=== PATIENT | male | born 1955 | race Caucasian/White ===

== ENCOUNTER 2016-11-06 17:11 | Emergency (ER) | payer OTHER ==
[2016-11-06] MEDS ORDERED: MORPHINE 4 MG/ML 1ML SYRINGE As Ordered ONE (18:24)
[2016-11-06 18:31] LABS: BASO # 0.2 K/mm3 (0.0-0.2); BASO % 1.8 % (0.0-1.0); EOS # 0.1 K/mm3 (0.0-0.50); EOS % 1.1 % (0.0-3.0); LARGE UNSTAINED CELL # 0.3 K/mm3 (0.0-0.4); LARGE UNSTAINED CELL % 2.2 % (0.0-4.0); LYMPH % 22.9 % (24.0-44.0); MEAN CORPUSCULAR HEMOGLOBIN 29.4 pg (27.0-33.0); MEAN CORPUSCULAR VOLUME 83.8 fl (80.0-96.0); MONO # 0.8 K/mm3 (0.0-0.8); MONO % 6.4 % (0.0-5.0); NEUTROPHILS # 7.8 K/mm3 (1.8-7.7); NEUTROPHILS % 65.6 % (36.0-66.0); PLATELET COUNT, AUTOMATED 322 k/mm3 (150-450); RED CELL DISTRIBUTION WIDTH 13.2 % (11.5-14.5); WHITE BLOOD COUNT 11.9 K/mm3 (4.0-10.0)
[2016-11-06 18:39] LABS: ALBUMIN 3.7 GM/DL (3.2-5.2); ALBUMIN/GLOBULIN RATIO 0.88 (1.00-1.93); ALKALINE PHOSPHATASE 141 U/L (45-117); ALT/SGPT 28 U/L (12-78); AMYLASE 59 U/L (25-115); ANION GAP 12 MEQ/L (8-16); AST/SGOT 33 U/L (15-37); BILIRUBIN,DIRECT 0.3 MG/DL (0.0-0.2); BILIRUBIN,TOTAL 0.8 MG/DL (0.2-1.0); BLOOD UREA NITROGEN 18 MG/DL (7-18); CALCIUM LEVEL 8.9 MG/DL (8.8-10.2); CARBON DIOXIDE LEVEL 22 MEQ/L (21-32); CHLORIDE LEVEL 106 MEQ/L (98-107); CREATININE FOR GFR 1.22 MG/DL (0.70-1.30); GLOMERULAR FILTRATION RATE > 60.0 (>49); GLUCOSE, FASTING 137 MG/DL (80-110); POTASSIUM SERUM 3.9 MEQ/L (3.5-5.1); SODIUM LEVEL 140 MEQ/L (136-145); TOTAL PROTEIN 7.9 GM/DL (6.4-8.2)
[2016-11-06] MEDS ORDERED: ISOVUE-370 76% 100ML VIAL (Q9967) As Ordered ONE (18:57)
--- NOTE | 2016-11-06 19:43 | REP ---
Clinical: Epigastric pain. Technique: Axial contrast enhanced images from the lung bases to the pubic symphysis using 100 ml Isovue 370 intravenous contrast material with coronal and sagittal re-formations. Comparison: 12/19/2009 Findings: The lung bases are clear. The distal esophagus is fluid-filled and narrowing at the gastroesophageal junction cannot be excluded. Visualized portions of the heart and pericardium are normal. Liver, spleen, pancreas, bilateral adrenal glands are normal. Cholelithiasis noted without CT evidence for acute cholecystitis. Kidneys demonstrate bilateral simple cysts measuring 2.1 cm in the right kidney and 1.9 cm in left kidney. Evaluation of the enteric system is without obstruction and a normal terminal ileum and appendix are identified in the right lower quadrant. There is mural thickening and pericolonic stranding involving the distal sigmoid colon with scattered diverticula most compatible with acute diverticulitis and correlation is required (Images 115 - 125). Pelvis demonstrates relatively normal bladder. The prostate gland is prominent and may warrant physical examination. Few scattered pelvic lymph nodes are nonspecific and possibly related to the presumed sigmoid diverticulitis. No pelvic fluid or ascites. No drainable collection. No free air. Atherosclerotic changes of the aorta noted without aneurysm or dissection. Musculoskeletal structures demonstrate age-related changes without focal osseous abnormality. Impression: 1. Fluid-filled distal esophagus with possible narrowing at the gastroesophageal junction cannot be excluded. 2. Mural thickening and pericolonic inflammatory stranding involving the distal sigmoid colon suggesting acute diverticulitis and correlation is recommended. Small adjacent lymph nodes are likely reactive. Outpatient colonoscopy may be warranted to exclude the possibility of neoplasm. 3. Simple appearing bilateral renal cysts. 4. Cholelithiasis without CT evidence for acute cholecystitis. Signed by Romeo Wiggins MD 11/06/2016 07:34 P
--- NOTE | 2016-11-06 21:12 | EDDOCDS ---
Physician Documentation [facility] Name: Phillip Molina Age: 61 yrs Sex: Male : 1955 Arrival Date: 11/06/2016 Time: 17:11 Bed 5 Private MD: Nicky Berry Disposition: 11/06/16 20:56 Discharged to Home/Self Care. Impression: Other cholelithiasis without obstruction, Diverticulitis of large intestine without perforation or abscess without bleeding. - Condition is Stable. - Prescriptions for Cipro 500 mg Oral Tablet - take 1 tablet by ORAL route every 12 hours; 14 tablet. Flagyl 500 mg Oral Tablet - take 1 tablet by ORAL route every 6 hours for 10 days; 40 tablet. - Medication Reconciliation, Local Pharmacy Hours form. - Follow up: Scott Wynn; When: As previously arranged. - Problem is an ongoing problem. - Symptoms have improved. Historical: - Allergies: No known drug Allergies; - Home Meds: 1. Altace 10 mg Oral cap 2 caps once daily 2. Fish Oil Oral 3. omeprazole 40 mg Oral cpDR 1 cap once daily - PMHx: Diverticulitis; GERD; - PSHx: spleen repair; - Social history: Smoking status: Patient states was never smoker of tobacco. No barriers to communication noted, The patient speaks fluent Luxembourgish, Speaks appropriately for age. - Family history: Not pertinent. - : The pt / caregiver states he / she is not on anticoagulants. Home medication list is obtained from the patient. - Exposure Risk Screening:: None identified. Vital Signs: 11/06 17:13 BP 183 / 89; Pulse 66; Resp 22 S; Temp 97.4; Pulse Ox 100% on R/A; Weight 99.79 kg / dd6 220 lbs (R); Height 6 ft. 0 in. (182.88 cm) (R); Pain 10/10; 18:32 BP 160 / 95 (auto/); nn1 18:32 Pulse 74 MON; Pulse Ox 96% ; nn1 18:32 Resp 18; nn1 18:47 BP 161 / 95 (auto/); nn1 18:47 Pulse 70 MON; Pulse Ox 97% ; nn1 19:02 BP 143 / 73 (auto/); nn1 19:02 Pulse 68 MON; Pulse Ox 97% ; nn1 21:01 BP 154 / 89; Pulse 64; Resp 18; Pulse Ox 97% on R/A; nn1 21:08 Temp 98.1; Pain 4/10; nn1 17:13 Body Mass Index 29.84 (99.79 kg, 182.88 cm) dd6 MDM: 18:05 ECG WITH READING ER PHYS+CARDIAG ordered. EDMS 18:18 morphine 4 mg IVP every 15 minutes; Document pain score/vitals after each dose (Hold if jo4 SBP < 90mmHg) x2 ordered. 18:20 CBC with Diff Ordered. EDMS 18:20 BMP Ordered. EDMS 18:20 Liver Profile Ordered. EDMS 18:20 Amylase Ordered. EDMS 18:20 Lipase Ordered. EDMS 18:22 IV Saline Lock ordered. jo4 18:22 Bench Worker Helper ordered. jo4 18:23 Troponin Ordered. EDMS 18:24 Financial registration complete. gjb 18:25 [facility] Payment Agreement was scanned into [employer] and attached to record. gjb 18:36 CBC with Diff Reviewed. jo4 18:45 Troponin Reviewed. jo4 18:48 BMP Reviewed. sd1 18:48 Liver Profile Reviewed. sd1 18:48 Amylase Reviewed. sd1 18:48 Lipase Reviewed. sd1 18:51 CT ABD & PELVIS: IV Contrast Only Ordered. EDMS Administered Medications: 21:11 Not Given (Patient Refused): morphine 4 mg IVP every 15 minutes; Document pain nn1 score/vitals after each dose (Hold if SBP < 90mmHg) x2 Signatures: Dispatcher [employer] EDFL Kayleen Oviedo MD MD sd1 Gelacio Greene RN RN dy Quay, Paulina, RN RN pml Schiff, Craig, DO DO cs11 Elisabeth Unger RN RN nn1 Jessica Crain Geovanna San DO DO jo4 The chart was reviewed and I authenticate all verbal orders and agree with the evaluation and treatment provided.Attachments: 18:25 [facility] [place] gj MTDD
--- NOTE | 2016-11-06 21:12 | EDDOCDS ---
Nurse's Notes [facility] Name: Phillip Molina Age: 61 yrs Sex: Male : 1955 Arrival Date: 11/06/2016 Time: 17:11 Bed 5 Private MD: Nicky Berry Diagnosis: Other cholelithiasis without obstruction;Diverticulitis of large intestine without perforation or abscess without bleeding Presentation: 11/06 17:15 Presenting complaint: Patient states: hx of gallbladder disease with recommendation to dy have gallbladder removed. ate ice cream and meatloaf last night then started with epigastric pains. pains settled down then started back again today JPTA. severe epigastric pain with nausea since 0. Adult Sepsis Screening: The patient does not have new or worsening altered mentation. Patient has a respiratory rate of greater than or equal to 22 (1 point). Systolic blood pressure is greater than 100. Patient has a qSOFA score of 1- Negative Sepsis Screen. Suicide/Homicide risk assessment- the patient denies having any suicidal and/or homicidal ideations and does not present with any other emotional, behavioral or mental health complaints. Status: Patient is not a taxi servicer or dependent. Transition of care: patient was not received from another setting of care. 17:15 Acuity: VARUN Level 3 dy 17:15 Method Of Arrival: Wheelchair dy Triage Assessment: 17:17 General: Appears uncomfortable. Pain: Location: epigastric area. HIV screening NA for dy this visit Offered previously. GI: Reports epigastric pain, nausea. Historical: - Allergies: No known drug Allergies; - Home Meds: 1. Altace 10 mg Oral cap 2 caps once daily 2. Fish Oil Oral 3. omeprazole 40 mg Oral cpDR 1 cap once daily - PMHx: Diverticulitis; GERD; - PSHx: spleen repair; - Social history: Smoking status: Patient states was never smoker of tobacco. No barriers to communication noted, The patient speaks fluent Thai, Speaks appropriately for age. - Family history: Not pertinent. - : The pt / caregiver states he / she is not on anticoagulants. Home medication list is obtained from the patient. - Exposure Risk Screening:: None identified. Screenin:38 Screening information is obtained from the patient. Fall risk: No risks identified. pml Assistance ADL's: requires no assistance with activities of daily living. Abuse/DV Screen: The patient / caregiver reports he/she is: not in a situation that causes fear, pain or injury. Nutritional screening: No deficits noted. Advance Directives: Currently, there is no health care proxy. home support is adequate. Assessment: 17:38 General: Appears uncomfortable, Behavior is appropriate for age, cooperative. Pain: pml Location: epigastric area Pain currently is 5 out of 10 on a pain scale. Neurological: Level of Consciousness is awake, alert, Oriented to person, place, time. Cardiovascular: Capillary refill < 3 seconds. Respiratory: Airway is patent Respiratory effort is even, unlabored, Respiratory pattern is regular, symmetrical. GI: Abdomen is non- distended obese, Bowel sounds present X 4 quads. Abd is soft X 4 quads Abd is tender to palpation in epigastric area, right upper quadrant and left upper quadrant Reports upper abdominal pain, vomiting. Derm: Skin is pink, warm & dry. 18:30 General: Appears in no apparent distress, comfortable, Behavior is appropriate for age, jmb cooperative, Patient denies pain at this time. Patient offered morphine per provider orders, patient refused due to not having any pain at this time. engine monitor set to every 15 minutes. . Neurological: Level of Consciousness is awake, alert, obeys commands, Oriented to person, place, time, Speech is normal, Facial symmetry appears normal, Facial symmetry: tongue is midline. Respiratory: Airway is patent Respiratory effort is even, unlabored, Respiratory pattern is regular, symmetrical. 19:10 General: Appears in no apparent distress, comfortable, Behavior is appropriate for age, nn1 cooperative. General: Patient to CT at this time. . Pain: Denies pain. Neurological: Level of Consciousness is awake, alert, obeys commands. Respiratory: Airway is patent Respiratory effort is even, unlabored, Respiratory pattern is regular, symmetrical. Derm: Skin is pink, warm & dry. 21:10 General: Appears in no apparent distress, comfortable, Behavior is appropriate for age, nn1 cooperative. Pain: Pain currently is 4 out of 10 on a pain scale. Neurological: Level of Consciousness is awake, alert, Oriented to person, place, time. Respiratory: Airway is patent Respiratory effort is even, unlabored, Respiratory pattern is regular, symmetrical. Derm: Skin is pink, warm & dry. Vital Signs: 17:13 BP 183 / 89; Pulse 66; Resp 22 S; Temp 97.4; Pulse Ox 100% on R/A; Weight 99.79 kg (R); dd6 Height 6 ft. 0 in. (182.88 cm) (R); Pain 10/10; 18:32 BP 160 / 95 (auto/); nn1 18:32 Pulse 74 MON; Pulse Ox 96% ; nn1 18:32 Resp 18; nn1 18:47 BP 161 / 95 (auto/); nn1 18:47 Pulse 70 MON; Pulse Ox 97% ; nn1 19:02 BP 143 / 73 (auto/); nn1 19:02 Pulse 68 MON; Pulse Ox 97% ; nn1 21:01 BP 154 / 89; Pulse 64; Resp 18; Pulse Ox 97% on R/A; nn1 21:08 Temp 98.1; Pain 4/10; nn1 17:13 Body Mass Index 29.84 (99.79 kg, 182.88 cm) dd6 Vitals: 17:13 Log In Time: November 06, 2016 at 17:11. dd6 17:13 RN notified that patient meets Red Flag criteria. dd6 ED Course: 17:12 Patient visited by Singh Calhoun PCA. dd6 17:12 Patient moved to Waiting dd6 17:13 Nicky Berry is Private Physician. dd6 17:17 Triage Initiated dy 17:26 Jacklyn Vasques,NINA is Primary Nurse. dy 17:26 Patient moved to 5 dy 17:30 [facility]inn [facility] jo4 17:30 Kayleen Oviedo MD is Attending Physician. jo4 17:38 The patient / caregiver is instructed regarding the plan of care and ED course. Patient lopez has correct armband on for positive identification. Placed in gown. Bed in low position. Call light in reach. Side rails up X2. 17:38 Inserted peripheral IV: 18gauge IV in left antecubital area and blood collected. pml Patient tolerated the procedure well. 17:39 Patient visited by Jacklyn Vasques,NINA. pml 18:17 Patient visited by Maureen Gomez PCA. ls3 18:17 EKG done. (by ED staff). Reviewed by Geovanna Linn DO. ls3 18:21 Patient visited by Kayleen Oviedo MD. sd1 18:23 Troponin Sent. jmb 18:23 Lipase Sent. jmb 18:23 Amylase Sent. jmb 18:23 Liver Profile Sent. jmb 18:23 BMP Sent. jmb 18:23 CBC with Diff Sent. jmb 18:25 [facility] [place] was scanned into [employer] and attached to record. gjb 18:31 Patient visited by Milton Johns,NINA. jmb 18:46 Patient visited by Kenya Payton PCA. jlf 19:21 Patient visited by Elisabeth Unger,NINA. nn1 19:46 Attending Physician role handed off by Kayleen Oviedo MD cs11 19:46 Jesus Gomez DO is Attending Physician. cs11 19:53 Patient visited by Elisabeth Unger RN. nn1 20:04 CT ABD & PELVIS: IV Contrast Only Returned. EDMS 20:55 Scott Wynn is Referral Physician. cs11 21:10 No procedures done that require assistance. nn1 Administered Medications: 21:11 Not Given (Patient Refused): morphine 4 mg IVP every 15 minutes; Document pain nn1 score/vitals after each dose (Hold if SBP < 90mmHg) x2 Order Results: Lab Order: CBC with Diff; SPEC'M 11/06/16 17:37 Test: WHITE BLOOD COUNT; Value: 11.9; Range: 4.0-10.0; Abnormal: Above high normal; Units: K/mm3; Status: F Test: RED BLOOD COUNT; Value: 5.69; Range: 4.30-6.10; Units: M/mm3; Status: F Test: HEMOGLOBIN; Value: 16.7; Range: 14.0-18.0; Units: g/dl; Status: F Test: HEMATOCRIT; Value: 47.7; Range: 42.0-52.0; Units: %; Status: F Test: MEAN CORPUSCULAR VOLUME; Value: 83.8; Range: 80.0-96.0; Units: fl; Status: F Test: MEAN CORPUSCULAR HEMOGLOBIN; Value: 29.4; Range: 27.0-33.0; Units: pg; Status: F Test: MEAN CORPUSCULAR HGB CONC; Value: 35.0; Range: 32.0-36.5; Units: g/dl; Status: F Test: RED CELL DISTRIBUTION WIDTH; Value: 13.2; Range: 11.5-14.5; Units: %; Status: F Test: PLATELET COUNT, AUTOMATED; Value: 322; Range: 150-450; Units: k/mm3; Status: F Test: NEUTROPHILS %; Value: 65.6; Range: 36.0-66.0; Units: %; Status: F Test: LYMPH %; Value: 22.9; Range: 24.0-44.0; Abnormal: Below low normal; Units: %; Status: F Test: MONO %; Value: 6.4; Range: 0.0-5.0; Abnormal: Above high normal; Units: %; Status: F Test: EOS %; Value: 1.1; Range: 0.0-3.0; Units: %; Status: F Test: BASO %; Value: 1.8; Range: 0.0-1.0; Abnormal: Above high normal; Units: %; Status: F Test: LARGE UNSTAINED CELL %; Value: 2.2; Range: 0.0-4.0; Units: %; Status: F Test: NEUTROPHILS #; Value: 7.8; Range: 1.8-7.7; Abnormal: Above high normal; Units: K/mm3; Status: F Test: LYMPH #; Value: 3.0; Range: 1.5-4.5; Units: K/mm3; Status: F Test: MONO #; Value: 0.8; Range: 0.0-0.8; Units: K/mm3; Status: F Test: EOS #; Value: 0.1; Range: 0.0-0.50; Units: K/mm3; Status: F Test: BASO #; Value: 0.2; Range: 0.0-0.2; Units: K/mm3; Status: F Test: LARGE UNSTAINED CELL #; Value: 0.3; Range: 0.0-0.4; Units: K/mm3; Status: F Lab Order: [facility]; SPEC'M 11/06/16 17:37 Test: GLUCOSE, FASTING; Value: 137; Range: 80-110; Abnormal: Above high normal; Units: MG/DL; Status: F Test: BLOOD UREA NITROGEN; Value: 18; Range: 7-18; Units: MG/DL; Status: F Test: CREATININE FOR GFR; Value: 1.22; Range: 0.70-1.30; Units: MG/DL; Status: F Test: GLOMERULAR FILTRATION RATE; Value: > 60.0; Range: >49; Status: F Test: SODIUM LEVEL; Value: 140; Range: 136-145; Units: MEQ/L; Status: F Test: POTASSIUM SERUM; Value: 3.9; Range: 3.5-5.1; Units: MEQ/L; Status: F Test: CHLORIDE LEVEL; Value: 106; Range: 98-107; Units: MEQ/L; Status: F Test: CARBON DIOXIDE LEVEL; Value: 22; Range: 21-32; Units: MEQ/L; Status: F Test: ANION GAP; Value: 12; Range: 8-16; Units: MEQ/L; Status: F Test: CALCIUM LEVEL; Value: 8.9; Range: 8.8-10.2; Units: MG/DL; Status: F Test Note: ; Units are mL/min/1.73 m2 Chronic Kidney Disease Staging per NKF: Stage I & II GFR >=60 Normal to Mildly Decreased Stage III GFR 30-59 Moderately Decreased Stage IV GFR 15-29 Severely Decreased Stage V GFR <15 Very Little GFR Left ESRD GFR <15 on ART SPECIALIST Lab Order: Liver Profile; SPEC'M 11/06/16 17:37 Test: AST/SGOT; Value: 33; Range: 15-37; Units: U/L; Status: F Test: ALT/SGPT; Value: 28; Range: 12-78; Units: U/L; Status: F Test: ALKALINE PHOSPHATASE; Value: 141; Range: 45-117; Abnormal: Above high normal; Units: U/L; Status: F Test: BILIRUBIN,TOTAL; Value: 0.8; Range: 0.2-1.0; Units: MG/DL; Status: F Test: BILIRUBIN,DIRECT; Value: 0.3; Range: 0.0-0.2; Abnormal: Above high normal; Units: MG/DL; Status: F Test: TOTAL PROTEIN; Value: 7.9; Range: 6.4-8.2; Units: GM/DL; Status: F Test: ALBUMIN; Value: 3.7; Range: 3.2-5.2; Units: GM/DL; Status: F Test: ALBUMIN/GLOBULIN RATIO; Value: 0.88; Range: 1.00-1.93; Abnormal: Below low normal; Status: F Lab Order: Amylase; SPEC'M 11/06/16 17:37 Test: AMYLASE; Value: 59; Range: 25-115; Units: U/L; Status: F Lab Order: Lipase; SPEC'M 11/06/16 17:37 Test: LIPASE; Value: 164; Range: 73-393; Units: U/L; Status: F Lab Order: Troponin; SPEC'M 11/06/16 17:37 Test: TROPONIN I; Value: < 0.02; Range: < 0.10; Units: NG/ML; Status: F Test Note: ; Troponin I Reference Interval for [employer] LOCI: 99th Percentile= 0.00-0.045 ng/ml Risk Stratification: <= 0.10 ng/ml Decreased Risk for Adverse Clinical Events. 0.10-1.50 ng/ml Increased Risk for Adverse Clinical Events. Evaluation of additional criterion and/or repeat testing in 2-6 hours is suggested to rule out myocardial damage. >= 1.50 ng/ml Indicative of Myocardial Injury. Radiology Order: CT ABD & PELVIS: IV Contrast Only Test: CT ABD & PELVIS: IV Contrast Only REASON FOR EXAMINATION: Epigastric pain; Clinical: Epigastric pain.; ; Technique: Axial contrast enhanced images from the lung bases to the pubic; symphysis using 100 ml Isovue 370 intravenous contrast material with coronal and; sagittal re-formations.; ; Comparison: 12/19/2009; ; Findings:; The lung bases are clear. The distal esophagus is fluid-filled and narrowing at; the gastroesophageal junction cannot be excluded. Visualized portions of the; heart and pericardium are normal.; ; Liver, spleen, pancreas, bilateral adrenal glands are normal. Cholelithiasis; noted without CT evidence for acute cholecystitis. Kidneys demonstrate bilateral; simple cysts measuring 2.1 cm in the right kidney and 1.9 cm in left kidney.; Evaluation of the enteric system is without obstruction and a normal terminal; ileum and appendix are identified in the right lower quadrant. There is mural; thickening and pericolonic stranding involving the distal sigmoid colon with; scattered diverticula most compatible with acute diverticulitis and correlation; is required (Images 115 - 125). Pelvis demonstrates relatively normal bladder.; The prostate gland is prominent and may warrant physical examination. Few; scattered pelvic lymph nodes are nonspecific and possibly related to the presumed; sigmoid diverticulitis. No pelvic fluid or ascites. No drainable collection.; No free air. Atherosclerotic changes of the aorta noted without aneurysm or; dissection. Musculoskeletal structures demonstrate age-related changes without; focal osseous abnormality.; ; Impression:; 1. Fluid-filled distal esophagus with possible narrowing at the gastroesophageal; junction cannot be excluded.; 2. Mural thickening and pericolonic inflammatory stranding involving the distal; sigmoid colon suggesting acute diverticulitis and correlation is recommended.; Small adjacent lymph nodes are likely reactive. Outpatient colonoscopy may be; warranted to exclude the possibility of neoplasm.; 3. Simple appearing bilateral renal cysts.; 4. Cholelithiasis without CT evidence for acute cholecystitis.; ; ; Signed by; Romeo Wiggins MD 11/06/2016 07:34 P; Outcome: 20:56 Discharge ordered by Provider. cs11 21:09 Discharge Assessment: Patient awake, alert and oriented x 3. No cognitive and/or nn1 functional deficits noted. Patient verbalized understanding of disposition instructions. patient administered narcotics - no. The following High Risk Discharge criteria are identified: None. Discharged to home ambulatory, with family. Condition: stable. CT Study completed. Property :Personal belongings accompany Pt. 21:11 Patient left the ED. nn1 Signatures: Dispatcher [employer] EDMS Kayleen Oviedo MD MD sd1 Gelacio Greene RN RN dy [place], Daniell, DEVIL DOG DEVIL DOG dd6 Jacklyn Vasques RN RN pml Schiff, Craig, DO DO cs11 Milton Johns RN RN jmb [place], Jordain, DEVIL DOG DEVIL DOG ashleyf Elisabeth UngerRN RN nn1 Maureen Gomez, DEVIL DOG DEVIL DOG ls3 Jessica Crain Jane, DO DO jo4 MTDD
--- NOTE | 2016-11-07 05:52 | ECGEPIP ---
Stationary ECG Study [facility] - ED Test Date: 2016-11-06 Pat Name: PARKER CHANG Department: Room: - Gender: M Lozenge Maker: : 1955 Requested By: Kayleen Oviedo Order Number: [id number] Reading MD: Elie Osorio Measurements Intervals [place] Rate: 71 P: 21 MT: 166 QRS: -21 QRSD: 106 T: 22 QT: 411 QTc: 448 Interpretive Statements SINUS RHYTHM BORDERLINE LEFT AXIS DEVIATION Electronically Signed On 11-07-2016 5:52:10 EST by Elie Osorio
--- NOTE | 2016-11-08 22:12 | EDDOCDS ---
Nurse's Notes [facility] Name: Parker Molina Age: 61 yrs Sex: Male : 1955 Arrival Date: 11/06/2016 Time: 17:11 Bed 5 Private MD: Nicky Berry Diagnosis: Other cholelithiasis without obstruction;Diverticulitis of large intestine without perforation or abscess without bleeding Presentation: 11/06 17:15 Presenting complaint: Patient states: hx of gallbladder disease with recommendation to dy have gallbladder removed. ate ice cream and meatloaf last night then started with epigastric pains. pains settled down then started back again today JPTA. severe epigastric pain with nausea since 0. Adult Sepsis Screening: The patient does not have new or worsening altered mentation. Patient has a respiratory rate of greater than or equal to 22 (1 point). Systolic blood pressure is greater than 100. Patient has a qSOFA score of 1- Negative Sepsis Screen. Suicide/Homicide risk assessment- the patient denies having any suicidal and/or homicidal ideations and does not present with any other emotional, behavioral or mental health complaints. Status: Patient is not a data services developer or dependent. Transition of care: patient was not received from another setting of care. 17:15 Acuity: VARUN Level 3 dy 17:15 Method Of Arrival: Wheelchair dy Triage Assessment: 17:17 General: Appears uncomfortable. Pain: Location: epigastric area. HIV screening NA for dy this visit Offered previously. GI: Reports epigastric pain, nausea. Historical: - Allergies: No known drug Allergies; - Home Meds: 1. Altace 10 mg Oral cap 2 caps once daily 2. Fish Oil Oral 3. omeprazole 40 mg Oral cpDR 1 cap once daily - PMHx: Diverticulitis; GERD; - PSHx: spleen repair; - Social history: Smoking status: Patient states was never smoker of tobacco. No barriers to communication noted, The patient speaks fluent Syriac, Speaks appropriately for age. - Family history: Not pertinent. - : The pt / caregiver states he / she is not on anticoagulants. Home medication list is obtained from the patient. - Exposure Risk Screening:: None identified. Screenin:38 Screening information is obtained from the patient. Fall risk: No risks identified. pml Assistance ADL's: requires no assistance with activities of daily living. Abuse/DV Screen: The patient / caregiver reports he/she is: not in a situation that causes fear, pain or injury. Nutritional screening: No deficits noted. Advance Directives: Currently, there is no health care proxy. home support is adequate. Assessment: 17:38 General: Appears uncomfortable, Behavior is appropriate for age, cooperative. Pain: pml Location: epigastric area Pain currently is 5 out of 10 on a pain scale. Neurological: Level of Consciousness is awake, alert, Oriented to person, place, time. Cardiovascular: Capillary refill < 3 seconds. Respiratory: Airway is patent Respiratory effort is even, unlabored, Respiratory pattern is regular, symmetrical. GI: Abdomen is non- distended obese, Bowel sounds present X 4 quads. Abd is soft X 4 quads Abd is tender to palpation in epigastric area, right upper quadrant and left upper quadrant Reports upper abdominal pain, vomiting. Derm: Skin is pink, warm & dry. 18:30 General: Appears in no apparent distress, comfortable, Behavior is appropriate for age, jmb cooperative, Patient denies pain at this time. Patient offered morphine per provider orders, patient refused due to not having any pain at this time. rectification printer set to every 15 minutes. . Neurological: Level of Consciousness is awake, alert, obeys commands, Oriented to person, place, time, Speech is normal, Facial symmetry appears normal, Facial symmetry: tongue is midline. Respiratory: Airway is patent Respiratory effort is even, unlabored, Respiratory pattern is regular, symmetrical. 19:10 General: Appears in no apparent distress, comfortable, Behavior is appropriate for age, nn1 cooperative. General: Patient to CT at this time. . Pain: Denies pain. Neurological: Level of Consciousness is awake, alert, obeys commands. Respiratory: Airway is patent Respiratory effort is even, unlabored, Respiratory pattern is regular, symmetrical. Derm: Skin is pink, warm & dry. 21:10 General: Appears in no apparent distress, comfortable, Behavior is appropriate for age, nn1 cooperative. Pain: Pain currently is 4 out of 10 on a pain scale. Neurological: Level of Consciousness is awake, alert, Oriented to person, place, time. Respiratory: Airway is patent Respiratory effort is even, unlabored, Respiratory pattern is regular, symmetrical. Derm: Skin is pink, warm & dry. Vital Signs: 17:13 BP 183 / 89; Pulse 66; Resp 22 S; Temp 97.4; Pulse Ox 100% on R/A; Weight 99.79 kg (R); dd6 Height 6 ft. 0 in. (182.88 cm) (R); Pain 10/10; 18:32 BP 160 / 95 (auto/); nn1 18:32 Pulse 74 MON; Pulse Ox 96% ; nn1 18:32 Resp 18; nn1 18:47 BP 161 / 95 (auto/); nn1 18:47 Pulse 70 MON; Pulse Ox 97% ; nn1 19:02 BP 143 / 73 (auto/); nn1 19:02 Pulse 68 MON; Pulse Ox 97% ; nn1 21:01 BP 154 / 89; Pulse 64; Resp 18; Pulse Ox 97% on R/A; nn1 21:08 Temp 98.1; Pain 4/10; nn1 17:13 Body Mass Index 29.84 (99.79 kg, 182.88 cm) dd6 Vitals: 17:13 Log In Time: November 06, 2016 at 17:11. dd6 17:13 RN notified that patient meets Red Flag criteria. dd6 ED Course: 17:12 Patient visited by Singh Calhoun PCA. dd6 17:12 Patient moved to Waiting dd6 17:13 Nicky Berry is Private Physician. dd6 17:17 Triage Initiated dy 17:26 Jacklyn Vasques,NINA is Primary Nurse. dy 17:26 Patient moved to 5 dy 17:30 [facility]inn [facility]. jo4 17:30 Kayleen Oviedo MD is Attending Physician. jo4 17:38 The patient / caregiver is instructed regarding the plan of care and ED course. Patient lopez has correct armband on for positive identification. Placed in gown. Bed in low position. Call light in reach. Side rails up X2. 17:38 Inserted peripheral IV: 18gauge IV in left antecubital area and blood collected. pml Patient tolerated the procedure well. 17:39 Patient visited by Jacklyn Vasques,NINA. pml 18:17 Patient visited by Maureen Gomez PCA. ls3 18:17 EKG done. (by ED staff). Reviewed by Geovanna Linn DO. ls3 18:21 Patient visited by Kayleen Oviedo MD. sd1 18:23 Troponin Sent. jmb 18:23 Lipase Sent. jmb 18:23 Amylase Sent. jmb 18:23 Liver Profile Sent. jmb 18:23 BMP Sent. jmb 18:23 CBC with Diff Sent. jmb 18:25 [facility] Payment Agreement was scanned into [employer] and attached to record. gjb 18:31 Patient visited by Milton Johns,NINA. jmb 18:46 Patient visited by Kenya Payton PCA. jlf 19:21 Patient visited by Elisabeth Unger,NINA. nn1 19:46 Attending Physician role handed off by Kayleen Oviedo MD cs11 19:46 Jesus Gomez DO is Attending Physician. cs11 19:53 Patient visited by Elisabeth Unger RN. nn1 20:04 CT ABD & PELVIS: IV Contrast Only Returned. EDMS 20:55 Scott Wynn is Referral Physician. cs11 21:10 No procedures done that require assistance. nn1 11/07 06:05 EKG-ADULT Returned. EDMS 08:09 T-Sheet-- Draft Copy was scanned into [employer] and attached to record. [facility] 11:39 ECG/EKG was scanned into [employer] and attached to record. gb Administered Medications: 11/06 21:11 Not Given (Patient Refused): morphine 4 mg IVP every 15 minutes; Document pain nn1 score/vitals after each dose (Hold if SBP < 90mmHg) x2 Order Results: Lab Order: CBC with Diff; SPEC'M 11/06/16 17:37 Test: WHITE BLOOD COUNT; Value: 11.9; Range: 4.0-10.0; Abnormal: Above high normal; Units: K/mm3; Status: F Test: RED BLOOD COUNT; Value: 5.69; Range: 4.30-6.10; Units: M/mm3; Status: F Test: HEMOGLOBIN; Value: 16.7; Range: 14.0-18.0; Units: g/dl; Status: F Test: HEMATOCRIT; Value: 47.7; Range: 42.0-52.0; Units: %; Status: F Test: MEAN CORPUSCULAR VOLUME; Value: 83.8; Range: 80.0-96.0; Units: fl; Status: F Test: MEAN CORPUSCULAR HEMOGLOBIN; Value: 29.4; Range: 27.0-33.0; Units: pg; Status: F Test: MEAN CORPUSCULAR HGB CONC; Value: 35.0; Range: 32.0-36.5; Units: g/dl; Status: F Test: RED CELL DISTRIBUTION WIDTH; Value: 13.2; Range: 11.5-14.5; Units: %; Status: F Test: PLATELET COUNT, AUTOMATED; Value: 322; Range: 150-450; Units: k/mm3; Status: F Test: NEUTROPHILS %; Value: 65.6; Range: 36.0-66.0; Units: %; Status: F Test: LYMPH %; Value: 22.9; Range: 24.0-44.0; Abnormal: Below low normal; Units: %; Status: F Test: MONO %; Value: 6.4; Range: 0.0-5.0; Abnormal: Above high normal; Units: %; Status: F Test: EOS %; Value: 1.1; Range: 0.0-3.0; Units: %; Status: F Test: BASO %; Value: 1.8; Range: 0.0-1.0; Abnormal: Above high normal; Units: %; Status: F Test: LARGE UNSTAINED CELL %; Value: 2.2; Range: 0.0-4.0; Units: %; Status: F Test: NEUTROPHILS #; Value: 7.8; Range: 1.8-7.7; Abnormal: Above high normal; Units: K/mm3; Status: F Test: LYMPH #; Value: 3.0; Range: 1.5-4.5; Units: K/mm3; Status: F Test: MONO #; Value: 0.8; Range: 0.0-0.8; Units: K/mm3; Status: F Test: EOS #; Value: 0.1; Range: 0.0-0.50; Units: K/mm3; Status: F Test: BASO #; Value: 0.2; Range: 0.0-0.2; Units: K/mm3; Status: F Test: LARGE UNSTAINED CELL #; Value: 0.3; Range: 0.0-0.4; Units: K/mm3; Status: F Lab Order: BMP; SPEC'M 11/06/16 17:37 Test: GLUCOSE, FASTING; Value: 137; Range: 80-110; Abnormal: Above high normal; Units: MG/DL; Status: F Test: BLOOD UREA NITROGEN; Value: 18; Range: 7-18; Units: MG/DL; Status: F Test: CREATININE FOR GFR; Value: 1.22; Range: 0.70-1.30; Units: MG/DL; Status: F Test: GLOMERULAR FILTRATION RATE; Value: > 60.0; Range: >49; Status: F Test: SODIUM LEVEL; Value: 140; Range: 136-145; Units: MEQ/L; Status: F Test: POTASSIUM SERUM; Value: 3.9; Range: 3.5-5.1; Units: MEQ/L; Status: F Test: CHLORIDE LEVEL; Value: 106; Range: 98-107; Units: MEQ/L; Status: F Test: CARBON DIOXIDE LEVEL; Value: 22; Range: 21-32; Units: MEQ/L; Status: F Test: ANION GAP; Value: 12; Range: 8-16; Units: MEQ/L; Status: F Test: CALCIUM LEVEL; Value: 8.9; Range: 8.8-10.2; Units: MG/DL; Status: F Test Note: ; Units are mL/min/1.73 m2 Chronic Kidney Disease Staging per NKF: Stage I & II GFR >=60 Normal to Mildly Decreased Stage III GFR 30-59 Moderately Decreased Stage IV GFR 15-29 Severely Decreased Stage V GFR <15 Very Little GFR Left ESRD GFR <15 on QUALITY CONTROL AUDITOR Lab Order: Liver Profile; SPEC'M 11/06/16 17:37 Test: AST/SGOT; Value: 33; Range: 15-37; Units: U/L; Status: F Test: ALT/SGPT; Value: 28; Range: 12-78; Units: U/L; Status: F Test: ALKALINE PHOSPHATASE; Value: 141; Range: 45-117; Abnormal: Above high normal; Units: U/L; Status: F Test: BILIRUBIN,TOTAL; Value: 0.8; Range: 0.2-1.0; Units: MG/DL; Status: F Test: BILIRUBIN,DIRECT; Value: 0.3; Range: 0.0-0.2; Abnormal: Above high normal; Units: MG/DL; Status: F Test: TOTAL PROTEIN; Value: 7.9; Range: 6.4-8.2; Units: GM/DL; Status: F Test: ALBUMIN; Value: 3.7; Range: 3.2-5.2; Units: GM/DL; Status: F Test: ALBUMIN/GLOBULIN RATIO; Value: 0.88; Range: 1.00-1.93; Abnormal: Below low normal; Status: F Lab Order: Amylase; SPEC'M 11/06/16 17:37 Test: AMYLASE; Value: 59; Range: 25-115; Units: U/L; Status: F Lab Order: Lipase; SPEC'M 11/06/16 17:37 Test: LIPASE; Value: 164; Range: 73-393; Units: U/L; Status: F Lab Order: Troponin; SPEC'M 11/06/16 17:37 Test: TROPONIN I; Value: < 0.02; Range: < 0.10; Units: NG/ML; Status: F Test Note: ; Troponin I Reference Interval for [employer] LOCI: 99th Percentile= 0.00-0.045 ng/ml Risk Stratification: <= 0.10 ng/ml Decreased Risk for Adverse Clinical Events. 0.10-1.50 ng/ml Increased Risk for Adverse Clinical Events. Evaluation of additional criterion and/or repeat testing in 2-6 hours is suggested to rule out myocardial damage. >= 1.50 ng/ml Indicative of Myocardial Injury. Radiology Order: EKG-ADULT Test: EKG-ADULT REASON FOR EXAMINATION: Abdomen Pain; Stationary ECG Study; 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:; : 1955 Requested By: Kayleen Oviedo; Order Number: [id number] Reading MD: Elie Osorio; Measurements; Intervals [place]; Rate: 71 P: 21; PA: 166 QRS: -21; QRSD: 106 T: 22; QT: 411; QTc: 448; Interpretive Statements; SINUS RHYTHM; BORDERLINE LEFT AXIS DEVIATION; ; Electronically Signed On 11-07-2016 5:52:10 EST by Elie Osorio; Radiology Order: CT ABD & PELVIS: IV Contrast Only Test: CT ABD & PELVIS: IV Contrast Only REASON FOR EXAMINATION: Epigastric pain; Clinical: Epigastric pain.; ; Technique: Axial contrast enhanced images from the lung bases to the pubic; symphysis using 100 ml Isovue 370 intravenous contrast material with coronal and; sagittal re-formations.; ; Comparison: 12/19/2009; ; Findings:; The lung bases are clear. The distal esophagus is fluid-filled and narrowing at; the gastroesophageal junction cannot be excluded. Visualized portions of the; heart and pericardium are normal.; ; Liver, spleen, pancreas, bilateral adrenal glands are normal. Cholelithiasis; noted without CT evidence for acute cholecystitis. Kidneys demonstrate bilateral; simple cysts measuring 2.1 cm in the right kidney and 1.9 cm in left kidney.; Evaluation of the enteric system is without obstruction and a normal terminal; ileum and appendix are identified in the right lower quadrant. There is mural; thickening and pericolonic stranding involving the distal sigmoid colon with; scattered diverticula most compatible with acute diverticulitis and correlation; is required (Images 115 - 125). Pelvis demonstrates relatively normal bladder.; The prostate gland is prominent and may warrant physical examination. Few; scattered pelvic lymph nodes are nonspecific and possibly related to the presumed; sigmoid diverticulitis. No pelvic fluid or ascites. No drainable collection.; No free air. Atherosclerotic changes of the aorta noted without aneurysm or; dissection. Musculoskeletal structures demonstrate age-related changes without; focal osseous abnormality.; ; Impression:; 1. Fluid-filled distal esophagus with possible narrowing at the gastroesophageal; junction cannot be excluded.; 2. Mural thickening and pericolonic inflammatory stranding involving the distal; sigmoid colon suggesting acute diverticulitis and correlation is recommended.; Small adjacent lymph nodes are likely reactive. Outpatient colonoscopy may be; warranted to exclude the possibility of neoplasm.; 3. Simple appearing bilateral renal cysts.; 4. Cholelithiasis without CT evidence for acute cholecystitis.; ; ; Signed by; Romeo Wiggins MD 11/06/2016 07:34 P; Outcome: 20:56 Discharge ordered by Provider. cs11 21:09 Discharge Assessment: Patient awake, alert and oriented x 3. No cognitive and/or nn1 functional deficits noted. Patient verbalized understanding of disposition instructions. patient administered narcotics - no. The following High Risk Discharge criteria are identified: None. Discharged to home ambulatory, with family. Condition: stable. CT Study completed. Property :Personal belongings accompany Pt. 21:11 Patient left the ED. nn1 Signatures: Dispatcher [employer] EDMS Kayleen Oviedo MD MD sd1 Nory Sweeney, Reg Reg gb Gelacio Greene, RN RN Singh Woodward, ROTARY DRILLER HELPER ROTARY DRILLER HELPER dd6 Jacklyn Vasques,RN RN Jesus Haile, DO DO cs11 Milton JohnsRN RN Kenya Cates, ROTARY DRILLER HELPER ROTARY DRILLER HELPER jlf Elisabeth UngerRN RN nn1 Maureen Gomez, ROTARY DRILLER HELPER ROTARY DRILLER HELPER ls3 Jessica Crain Jane, DO DO jo4 Kayleen Snider Chart Complete MTDSea
--- NOTE | 2016-11-08 22:12 | EDDOCDS ---
Physician Documentation [facility] Name: Phillip Molina Age: 61 yrs Sex: Male : 1955 Arrival Date: 11/06/2016 Time: 17:11 Bed 5 Private MD: Nicky Berry Disposition: 11/06/16 20:56 Discharged to Home/Self Care. Impression: Other cholelithiasis without obstruction, Diverticulitis of large intestine without perforation or abscess without bleeding. - Condition is Stable. - Prescriptions for Cipro 500 mg Oral Tablet - take 1 tablet by ORAL route every 12 hours; 14 tablet. Flagyl 500 mg Oral Tablet - take 1 tablet by ORAL route every 6 hours for 10 days; 40 tablet. - Medication Reconciliation, Local Pharmacy Hours form. - Follow up: Scott Wynn; When: As previously arranged. - Problem is an ongoing problem. - Symptoms have improved. Historical: - Allergies: No known drug Allergies; - Home Meds: 1. Altace 10 mg Oral cap 2 caps once daily 2. Fish Oil Oral 3. omeprazole 40 mg Oral cpDR 1 cap once daily - PMHx: Diverticulitis; GERD; - PSHx: spleen repair; - Social history: Smoking status: Patient states was never smoker of tobacco. No barriers to communication noted, The patient speaks fluent Cape Verdean, Speaks appropriately for age. - Family history: Not pertinent. - : The pt / caregiver states he / she is not on anticoagulants. Home medication list is obtained from the patient. - Exposure Risk Screening:: None identified. Vital Signs: 11/06 17:13 BP 183 / 89; Pulse 66; Resp 22 S; Temp 97.4; Pulse Ox 100% on R/A; Weight 99.79 kg / dd6 220 lbs (R); Height 6 ft. 0 in. (182.88 cm) (R); Pain 10/10; 18:32 BP 160 / 95 (auto/); nn1 18:32 Pulse 74 MON; Pulse Ox 96% ; nn1 18:32 Resp 18; nn1 18:47 BP 161 / 95 (auto/); nn1 18:47 Pulse 70 MON; Pulse Ox 97% ; nn1 19:02 BP 143 / 73 (auto/); nn1 19:02 Pulse 68 MON; Pulse Ox 97% ; nn1 21:01 BP 154 / 89; Pulse 64; Resp 18; Pulse Ox 97% on R/A; nn1 21:08 Temp 98.1; Pain 4/10; nn1 17:13 Body Mass Index 29.84 (99.79 kg, 182.88 cm) dd6 MDM: 18:05 ECG WITH READING ER PHYS+CARDIAG ordered. EDMS 18:18 morphine 4 mg IVP every 15 minutes; Document pain score/vitals after each dose (Hold if jo4 SBP < 90mmHg) x2 ordered. 18:20 CBC with Diff Ordered. EDMS 18:20 BMP Ordered. EDMS 18:20 Liver Profile Ordered. EDMS 18:20 Amylase Ordered. EDMS 18:20 Lipase Ordered. EDMS 18:22 IV Saline Lock ordered. jo4 18:22 Spray Gun Sizer ordered. jo4 18:23 Troponin Ordered. EDMS 18:24 Financial registration complete. gjb 18:25 [facility] Payment Agreement was scanned into [employer] and attached to record. gjb 18:36 CBC with Diff Reviewed. jo4 18:45 Troponin Reviewed. jo4 18:48 BMP Reviewed. sd1 18:48 Liver Profile Reviewed. sd1 18:48 Amylase Reviewed. sd1 18:48 Lipase Reviewed. sd1 18:51 CT ABD & PELVIS: IV Contrast Only Ordered. EDMS 11/07 07:24 CT ABD & PELVIS: IV Contrast Only Reviewed. jo4 08:09 T-Sheet-- Draft Copy was scanned into [employer] and attached to record. seh 11:39 ECG/EKG was scanned into [employer] and attached to record. gb Administered Medications: 11/06 21:11 Not Given (Patient Refused): morphine 4 mg IVP every 15 minutes; Document pain nn1 score/vitals after each dose (Hold if SBP < 90mmHg) x2 Signatures: Dispatcher [employer] EDWA Kayleen Oviedo MD MD sd1 Nory Sweeney, Reg Reg gb Gelacio Greene, Jacklyn Melendez RN, RN RN pml Schiff, Craig, DO DO cs11 Elisabeth Unger RN RN nn1 Jessica Crain [facility] Geovanna Linn DO DO jo4 Kayleen Snider se The chart was reviewed and I authenticate all verbal orders and agree with the evaluation and treatment provided.Attachments: 18:25 [facility] Payment Agreement gjb 11/07 08:09 T-Sheet-- Draft Copy [facility] 11:39 ECG/EKG gb Chart Complete MTDD
--- NOTE | 2016-11-08 22:12 | EDDOCDS ---
Physician Documentation [facility] Name: Phillip Molina Age: 61 yrs Sex: Male : 1955 Arrival Date: 11/06/2016 Time: 17:11 Bed 5 Private MD: Nicky Berry Disposition: 11/06/16 20:56 Discharged to Home/Self Care. Impression: Other cholelithiasis without obstruction, Diverticulitis of large intestine without perforation or abscess without bleeding. - Condition is Stable. - Prescriptions for Cipro 500 mg Oral Tablet - take 1 tablet by ORAL route every 12 hours; 14 tablet. Flagyl 500 mg Oral Tablet - take 1 tablet by ORAL route every 6 hours for 10 days; 40 tablet. - Medication Reconciliation, Local Pharmacy Hours form. - Follow up: Scott Wynn; When: As previously arranged. - Problem is an ongoing problem. - Symptoms have improved. Historical: - Allergies: No known drug Allergies; - Home Meds: 1. Altace 10 mg Oral cap 2 caps once daily 2. Fish Oil Oral 3. omeprazole 40 mg Oral cpDR 1 cap once daily - PMHx: Diverticulitis; GERD; - PSHx: spleen repair; - Social history: Smoking status: Patient states was never smoker of tobacco. No barriers to communication noted, The patient speaks fluent Mozambican, Speaks appropriately for age. - Family history: Not pertinent. - : The pt / caregiver states he / she is not on anticoagulants. Home medication list is obtained from the patient. - Exposure Risk Screening:: None identified. Vital Signs: 11/06 17:13 BP 183 / 89; Pulse 66; Resp 22 S; Temp 97.4; Pulse Ox 100% on R/A; Weight 99.79 kg / dd6 220 lbs (R); Height 6 ft. 0 in. (182.88 cm) (R); Pain 10/10; 18:32 BP 160 / 95 (auto/); nn1 18:32 Pulse 74 MON; Pulse Ox 96% ; nn1 18:32 Resp 18; nn1 18:47 BP 161 / 95 (auto/); nn1 18:47 Pulse 70 MON; Pulse Ox 97% ; nn1 19:02 BP 143 / 73 (auto/); nn1 19:02 Pulse 68 MON; Pulse Ox 97% ; nn1 21:01 BP 154 / 89; Pulse 64; Resp 18; Pulse Ox 97% on R/A; nn1 21:08 Temp 98.1; Pain 4/10; nn1 17:13 Body Mass Index 29.84 (99.79 kg, 182.88 cm) dd6 MDM: 18:05 ECG WITH READING ER PHYS+CARDIAG ordered. EDMS 18:18 morphine 4 mg IVP every 15 minutes; Document pain score/vitals after each dose (Hold if jo4 SBP < 90mmHg) x2 ordered. 18:20 CBC with Diff Ordered. EDMS 18:20 BMP Ordered. EDMS 18:20 Liver Profile Ordered. EDMS 18:20 Amylase Ordered. EDMS 18:20 Lipase Ordered. EDMS 18:22 IV Saline Lock ordered. jo4 18:22 Web Marketing Intern ordered. jo4 18:23 Troponin Ordered. EDMS 18:24 Financial registration complete. gjb 18:25 PENDING [facility] TO [facility] Payment Agreement was scanned into [employer] and attached to record. gjb 18:36 CBC with Diff Reviewed. jo4 18:45 Troponin Reviewed. jo4 18:48 BMP Reviewed. sd1 18:48 Liver Profile Reviewed. sd1 18:48 Amylase Reviewed. sd1 18:48 Lipase Reviewed. sd1 18:51 CT ABD & PELVIS: IV Contrast Only Ordered. EDMS 11/07 07:24 CT ABD & PELVIS: IV Contrast Only Reviewed. jo4 08:09 T-Sheet-- Draft Copy was scanned into [employer] and attached to record. seh 11:39 ECG/EKG was scanned into [employer] and attached to record. gb Administered Medications: 11/06 21:11 Not Given (Patient Refused): morphine 4 mg IVP every 15 minutes; Document pain nn1 score/vitals after each dose (Hold if SBP < 90mmHg) x2 Signatures: Dispatcher [employer] EDKS Kayleen Oviedo MD MD sd1 Nory Sweeney, Reg Reg gb Gelacio Greene, Jacklyn Melendez RN, RN RN pml Schiff, Craig, DO DO cs11 Elisabeth Unger RN RN nn1 Jessica Crain [facility] Geovanna Linn DO DO jo4 Kayleen Snider se The chart was reviewed and I authenticate all verbal orders and agree with the evaluation and treatment provided.Attachments: 18:25 PENDING S[facility] TO [facility] Payment Agreement gjb 11/07 08:09 T-Sheet-- Draft Copy [facility] 11:39 ECG/EKG gb Chart Complete MTDD
== END 2016-11-06 21:11 | disposition home or self-care (01) ==
LOC: M ED 17:11
DX: K80.20 Calculus of gallbladder without cholecystitis without obstruction (principal); K57.32 Diverticulitis of large intestine without perforation or abscess without bleeding; K21.9 Gastro-esophageal reflux disease without esophagitis; Z79.899 Other long term (current) drug therapy
CPT/HCPCS: 36415; 74177; 80048; 80076; 82150; 83690; 85025; 93005; 93041; 99284; Q9967

== ENCOUNTER → 2016-11-16 | Outpatient (CLI) | payer OTHER ==
--- NOTE | 2016-11-17 08:29 | REP ---
MRI study of the right shoulder without and with IV contrast History: Lump on right shoulder. 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 Enlarging. Comparison MRI study of the right humerus shows a subtle region of hypertrophy of the subcutaneous fat layer. This was dated July 22, 2005. No comparison radiographs. Technique: Axial, coronal and sagittal imaging planes are utilized. T1 and T2-weighted scans were obtained with and without fat saturation and before and after contrast. The area of concern is marked with markers placed on the skin above and below the lesion. Gadolinium enhancement dose: 20 ml of intravenous ProHance. MRI findings: There is localized hypertrophy of the subcutaneous fat layer in the area of interest between the skin markers consistent with a lipoma. It is homogeneously fat signal intensity on T1 and T2-weighted scans without evidence of gadolinium enhancement. There is no clear encapsulation. The area in question measures roughly 5 cm anterior to posterior by 2.2 cm in thickness by 8 cm craniocaudal. No soft tissue component is seen. Skeletal muscle in the upper arm shows normal contour and signal intensity on T1 and T2-weighted scans. Cortical and medullary bone signal intensity are normal. No cyst or other mass is seen. No vascular abnormality is observed. No abnormal gadolinium enhancement is seen. Impression: Findings consistent with unencapsulated lipoma versus regional fatty hypertrophy. The area in question is larger than on the 2004 prior MRI study. Signed by Braulio Reed MD 11/17/2016 01:16 P
== END ==
LOC: M RAD 16:07
PROVIDERS: ATTEND Surgery
DX: D17.21 Benign lipomatous neoplasm of skin and subcutaneous tissue of right arm (principal)

== ENCOUNTER 2016-11-29 01:34 | Emergency (ER) | payer OTHER ==
[2016-11-29] MEDS ORDERED: ONDANSETRON 4MG/2ML VIAL (J2405) As Ordered ONE (02:49)
[2016-11-29] MEDS ORDERED: HYDROmorphone HCL 1 MG/ML SYRINGE (J1170) As Ordered ONE (03:09)
[2016-11-29 03:11] LABS: ALBUMIN 3.6 GM/DL (3.2-5.2); ALBUMIN/GLOBULIN RATIO 0.86 (1.00-1.93); BILIRUBIN,DIRECT 0.1 MG/DL (0.0-0.2); BILIRUBIN,TOTAL 0.9 MG/DL (0.2-1.0); CALCIUM LEVEL 9.2 MG/DL (8.8-10.2); CREATININE FOR GFR 1.31 MG/DL (0.70-1.30); GLOMERULAR FILTRATION RATE 58.8 (>49); POTASSIUM SERUM 3.6 MEQ/L (3.5-5.1); TOTAL PROTEIN 7.8 GM/DL (6.4-8.2)
[2016-11-29 03:28] LABS: BASO % 0.4 % (0.0-1.0); EOS # 0.1 K/mm3 (0.0-0.50); EOS % 1.1 % (0.0-3.0); LARGE UNSTAINED CELL # 0.2 K/mm3 (0.0-0.4); LARGE UNSTAINED CELL % 1.3 % (0.0-4.0); LYMPH # 1.9 K/mm3 (1.5-4.5); LYMPH % 12.8 % (24.0-44.0); MEAN CORPUSCULAR HEMOGLOBIN 29.7 pg (27.0-33.0); MEAN CORPUSCULAR HGB CONC 35.4 g/dl (32.0-36.5); MEAN CORPUSCULAR VOLUME 83.9 fl (80.0-96.0); MONO # 0.6 K/mm3 (0.0-0.8); MONO % 4.6 % (0.0-5.0); NEUTROPHILS # 10.6 K/mm3 (1.8-7.7); NEUTROPHILS % 79.8 % (36.0-66.0); PLATELET COUNT, AUTOMATED 308 k/mm3 (150-450); RED CELL DISTRIBUTION WIDTH 12.3 % (11.5-14.5); WHITE BLOOD COUNT 13.3 K/mm3 (4.0-10.0)
--- NOTE | 2016-11-29 04:10 | REPUSA ---
CLINICAL HISTORY: Abdominal pain. TECHNIQUE: Realtime sonographic images were obtained in multiple projections. COMMENTS: The liver is of normal size, parenchyma demonstrates normal echogenicity. No discrete hepatic mass is seen. There is no intra or extrahepatic biliary ductal dilatation. CBD measures 4.1mm . The gallbladder is physiologically distended with evidence of calculi. The gallbladder wall is not thickened and there i s no pericholecystic fluid. There is no abdominal ascites. The right kidney measures 11x5x4.6 cm, free of hydronephrosis. IMPRESSION: Cholelithiasis. Thank you for your kind referral of this patient.
--- NOTE | 2016-11-29 05:55 | EDDOCDS ---
Nurse's Notes [facility] Name: Phillip Molina Age: 61 yrs Sex: Male : 1955 Arrival Date: 11/29/2016 Time: 01:34 Bed 11 Private MD: Diagnosis: Other cholelithiasis without obstruction Presentation: 11/29 01:40 Presenting complaint: Patient states: Epigastric pain starting around 2230 while ld5 sitting up in chair. + Nausea/vomiting. Adult Sepsis Screening: The patient does not have new or worsening altered mentation. Patient's respiratory rate is less than 22. Systolic blood pressure is greater than 100. Patient has a qSOFA score of 0- Negative Sepsis Screen. Suicide/Homicide risk assessment- the patient denies having any suicidal and/or homicidal ideations and does not present with any other emotional, behavioral or mental health complaints. 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 Transition of care: patient was not received from another setting of care. 01:40 Acuity: VARUN Level 3 ld5 01:40 Method Of Arrival: Walkin/Carried/Asstd ld5 Triage Assessment: 01:41 General: Appears uncomfortable, Behavior is cooperative, restless. Pain: Location: ld5 epigastric area Pain currently is 10 out of 10 on a pain scale. Pain began 2230. HIV screening NA for this visit Offered previously. Neurological: Level of Consciousness is awake, alert. Respiratory: Airway is patent Respiratory effort is even, unlabored. GI: Reports nausea, vomiting. Historical: - Allergies: no known allergies; - Home Meds: 1. Altace 10 mg Oral cap 2 caps once daily 2. Fish Oil Oral 3. omeprazole 40 mg Oral cpDR 1 cap once daily - PMHx: Diverticulitis; GERD; - PSHx: spleen repair; - Social history: Smoking status: Patient states was never smoker of tobacco. No barriers to communication noted, The patient speaks fluent Kinyarwanda, Speaks appropriately for age. - Family history: Not pertinent. - : The pt / caregiver states he / she is not on anticoagulants. Home medication list is obtained from the patient. - Exposure Risk Screening:: None identified. Screenin:18 Screening information is obtained from the patient. Fall risk: No risks identified. js15 Assistance ADL's: requires no assistance with activities of daily living. Abuse/DV Screen: The patient / caregiver reports he/she is: not in a situation that causes fear, pain or injury. Nutritional screening: No deficits noted. Advance Directives: There is no active DNR order. home support is adequate. Assessment: 02:15 General: Appears uncomfortable, Behavior is anxious, appropriate for age, cooperative. js15 Pain: Location: right upper quadrant and epigastric area Pain currently is 10 out of 10 on a pain scale. Neurological: Level of Consciousness is awake, alert, obeys commands, Oriented to person, place, time. Cardiovascular: Rhythm is regular. Respiratory: Airway is patent Respiratory effort is even, unlabored, Respiratory pattern is regular, symmetrical, Breath sounds are clear bilaterally. GI: Abdomen is non- distended Bowel sounds present X 4 quads. Abd is soft X 4 quads Abd is tender to palpation in epigastric area and right upper quadrant Reports nausea. Derm: Skin is. 03:16 Reassessment: Pt appears uncomfortable; pain meds administered per MD orders; will js15 continue to monitor. 04:09 Reassessment: Patient appears in no apparent distress at this time. Patient states js15 feeling better. Patient states symptoms have improved. Pt resting on stretcher with eyes closed; respirations even and unlabored; skin pink, warm, dry; will continue to monitor. 05:30 General: Appears in no apparent distress, comfortable, Behavior is appropriate for age, js15 cooperative. Pain: Location: right upper quadrant and epigastric area. Neurological: Level of Consciousness is awake, alert, obeys commands, Oriented to person, place, time. Respiratory: Airway is patent Respiratory effort is even, unlabored, Respiratory pattern is regular, symmetrical. Derm: Skin is pink, warm & dry. Vital Signs: 01:39 BP 197 / 91; Pulse 75; Resp 20; Temp 97.9; Pulse Ox 100% on R/A; Weight 99.79 kg (R); ld5 Height 6 ft. 1 in. (185.42 cm) (R); Pain 10/10; 02:17 BP 192 / 98 (auto/); js15 02:18 Pulse 66 MON; Pulse Ox 100% ; js15 02:32 BP 192 / 99 (auto/); js15 02:32 Pulse 64 MON; Pulse Ox 100% ; js15 02:47 BP 191 / 130 (auto/); js15 02:47 Pulse 64 MON; Pulse Ox 99% ; js15 03:02 BP 211 / 97 (auto/); js15 03:02 Pulse 58 MON; Pulse Ox 100% ; js15 03:32 BP 195 / 98 (auto/); js15 03:32 Pulse 56 MON; Pulse Ox 95% ; js15 03:47 BP 193 / 103 (auto/); js15 03:47 Pulse 56 MON; Pulse Ox 99% ; js15 03:50 Pain 5/10; js15 04:02 BP 188 / 101 (auto/); js15 04:02 Pulse 54 MON; Pulse Ox 98% ; js15 04:16 Pulse 58 MON; Pulse Ox 98% ; js15 04:17 BP 187 / 97 (auto/); js15 04:31 Pulse 56 MON; Pulse Ox 96% ; js15 04:32 BP 187 / 100 (auto/); js15 04:46 Pulse 60 MON; Pulse Ox 97% ; js15 04:47 BP 181 / 98 (auto/); js15 05:02 Pulse 62 MON; Pulse Ox 94% ; js15 05:02 BP 187 / 104 (auto/); js15 05:17 BP 191 / 100 (auto/); js15 05:17 Pulse 64 MON; Pulse Ox 95% ; js15 05:32 BP 191 / 103 (auto/); js15 05:32 Pulse 66 MON; Pulse Ox 96% ; js15 05:47 BP 188 / 104 (auto/); js15 05:49 Pulse 68 MON; Resp 20; Temp 98.8(TE); Pulse Ox 97% ; Pain 7/10; js15 01:39 Body Mass Index 29.03 (99.79 kg, 185.42 cm) ld5 Vitals: 01:39 Log In Time: November 29, 2016 at 01:32. ld5 ED Course: 01:35 Patient visited by Jessica Crain. gjb 01:35 Patient moved to Waiting gjb 01:40 Triage Initiated ld5 01:42 Patient visited by Venessa Merino,NINA. ld5 01:49 Aixa Sykes,NINA is Primary Nurse. ml3 01:49 Patient moved to 8 ml3 01:50 Patient moved to Triage 1 ml3 01:59 Patient moved to 11 cz 02:05 Patient visited by Sonu, Gaby, RN ANTE PARTUM. rodrigo 02:05 EKG done. (by ED staff). Reviewed by Jesus Gomez DO. rodrigo 02:30 Inserted saline lock: 20 gauge in left antecubital area The patient tolerated the js15 procedure well. 02:59 Jesus Gomez DO is Attending Physician. cs11 02:59 Patient visited by Jesus Gomez DO. cs11 03:30 Patient name changed from Phillip\S\R\S\Jesse\S\ to Phillip\S\Oneil\S\Jesse. EDMS 03:30 [facility] [place] was scanned into [employer] and attached to record. pm4 04:00 The patient / caregiver is instructed regarding the plan of care and ED course. js15 04:00 No procedures done that require assistance. js15 04:08 Patient visited by Amelia Garibay RN. js15 04:15 Ultrasound Abd Limited Returned. EDMS 05:17 Patient visited by Amelia Garibay RN. js15 05:35 Scott Wynn is Referral Physician. cs11 05:49 Discontinued IV lock intact, bleeding controlled, pressure dressing applied, No js15 redness/swelling at site. Administered Medications: 02:52 Drug: Ondansetron 4 mg [ondansetron HCl 2 mg/mL intravenous solution (2 mL)] Route: js15 IVP; Site: left antecubital; 03:14 Drug: NS 0.9% 500 ml [sodium chloride 0.9 % intravenous solution] Route: IV; Rate: js15 bolus; Site: left antecubital; 05:00 Follow up: IV Status: Completed infusion; IV Intake: 500ml js15 03:14 Drug: Dilaudid - HYDROmorphone 0.5 mg [hydromorphone 1 mg/mL injection syringe (0.5 js15 mL)] Route: IVP; Site: left antecubital; 03:50 Follow up: Pain 5/10 Adult; Response: Pain is decreased js15 Intake: 05:00 IV: 500.00ml; Total: 500.00ml. js15 Order Results: Lab Order: Amylase; SPEC'M 11/29/16 02:25 Test: AMYLASE; Value: 50; Range: 25-115; Units: U/L; Status: F Lab Order: Basic Metabolic Profile; SPEC'M 11/29/16 02:25 Test: GLUCOSE, FASTING; Value: 141; Range: 80-110; Abnormal: Above high normal; Units: MG/DL; Status: F Test: BLOOD UREA NITROGEN; Value: 14; Range: 7-18; Units: MG/DL; Status: F Test: CREATININE FOR GFR; Value: 1.31; Range: 0.70-1.30; Abnormal: Above high normal; Units: MG/DL; Status: F Test: GLOMERULAR FILTRATION RATE; Value: 58.8; Range: >49; Status: F Test: SODIUM LEVEL; Value: 140; Range: 136-145; Units: MEQ/L; Status: F Test: POTASSIUM SERUM; Value: 3.6; Range: 3.5-5.1; Units: MEQ/L; Status: F Test: CHLORIDE LEVEL; Value: 106; Range: 98-107; Units: MEQ/L; Status: F Test: CARBON DIOXIDE LEVEL; Value: 23; Range: 21-32; Units: MEQ/L; Status: F Test: ANION GAP; Value: 11; Range: 8-16; Units: MEQ/L; Status: F Test: CALCIUM LEVEL; Value: 9.2; Range: 8.8-10.2; Units: MG/DL; Status: F Test Note: ; Units are mL/min/1.73 m2 Chronic Kidney Disease Staging per NKF: Stage I & II GFR >=60 Normal to Mildly Decreased Stage III GFR 30-59 Moderately Decreased Stage IV GFR 15-29 Severely Decreased Stage V GFR <15 Very Little GFR Left ESRD GFR <15 on DIRECTOR PERIOPERATIVE Lab Order: CBC with Diff; SPEC'M 11/29/16 02:25 Test: WHITE BLOOD COUNT; Value: 13.3; Range: 4.0-10.0; Abnormal: Above high normal; Units: K/mm3; Status: F Test: RED BLOOD COUNT; Value: 4.98; Range: 4.30-6.10; Units: M/mm3; Status: F Test: HEMOGLOBIN; Value: 14.8; Range: 14.0-18.0; Units: g/dl; Status: F Test: HEMATOCRIT; Value: 41.8; Range: 42.0-52.0; Abnormal: Below low normal; Units: %; Status: F Test: MEAN CORPUSCULAR VOLUME; Value: 83.9; Range: 80.0-96.0; Units: fl; Status: F Test: MEAN CORPUSCULAR HEMOGLOBIN; Value: 29.7; Range: 27.0-33.0; Units: pg; Status: F Test: MEAN CORPUSCULAR HGB CONC; Value: 35.4; Range: 32.0-36.5; Units: g/dl; Status: F Test: RED CELL DISTRIBUTION WIDTH; Value: 12.3; Range: 11.5-14.5; Units: %; Status: F Test: PLATELET COUNT, AUTOMATED; Value: 308; Range: 150-450; Units: k/mm3; Status: F Test: NEUTROPHILS %; Value: 79.8; Range: 36.0-66.0; Abnormal: Above high normal; Units: %; Status: F Test: LYMPH %; Value: 12.8; Range: 24.0-44.0; Abnormal: Below low normal; Units: %; Status: F Test: MONO %; Value: 4.6; Range: 0.0-5.0; Units: %; Status: F Test: EOS %; Value: 1.1; Range: 0.0-3.0; Units: %; Status: F Test: BASO %; Value: 0.4; Range: 0.0-1.0; Units: %; Status: F Test: LARGE UNSTAINED CELL %; Value: 1.3; Range: 0.0-4.0; Units: %; Status: F Test: NEUTROPHILS #; Value: 10.6; Range: 1.8-7.7; Abnormal: Above high normal; Units: K/mm3; Status: F Test: LYMPH #; Value: 1.9; Range: 1.5-4.5; Units: K/mm3; Status: F Test: MONO #; Value: 0.6; Range: 0.0-0.8; Units: K/mm3; Status: F Test: EOS #; Value: 0.1; Range: 0.0-0.50; Units: K/mm3; Status: F Test: BASO #; Value: 0.0; Range: 0.0-0.2; Units: K/mm3; Status: F Test: LARGE UNSTAINED CELL #; Value: 0.2; Range: 0.0-0.4; Units: K/mm3; Status: F Lab Order: Lipase; SPEC'M 11/29/16 02:25 Test: LIPASE; Value: 164; Range: 73-393; Units: U/L; Status: F Lab Order: Liver Profile; SPEC'M 11/29/16 02:25 Test: AST/SGOT; Value: 15; Range: 15-37; Units: U/L; Status: F Test: ALT/SGPT; Value: 30; Range: 12-78; Units: U/L; Status: F Test: ALKALINE PHOSPHATASE; Value: 120; Range: 45-117; Abnormal: Above high normal; Units: U/L; Status: F Test: BILIRUBIN,TOTAL; Value: 0.9; Range: 0.2-1.0; Units: MG/DL; Status: F Test: BILIRUBIN,DIRECT; Value: 0.1; Range: 0.0-0.2; Units: MG/DL; Status: F Test: TOTAL PROTEIN; Value: 7.8; Range: 6.4-8.2; Units: GM/DL; Status: F Test: ALBUMIN; Value: 3.6; Range: 3.2-5.2; Units: GM/DL; Status: F Test: ALBUMIN/GLOBULIN RATIO; Value: 0.86; Range: 1.00-1.93; Abnormal: Below low normal; Status: F Radiology Order: Ultrasound Abd Limited Test: Ultrasound Abd Limited REASON FOR EXAMINATION: Biliary Colic; ; CLINICAL HISTORY: Abdominal pain.; TECHNIQUE: Realtime sonographic images were obtained in multiple projections.; COMMENTS:; The liver is of normal size, parenchyma demonstrates normal echogenicity. No discrete hepatic mass is; seen.; There is no intra or extrahepatic biliary ductal dilatation. CBD measures 4.1mm . The gallbladder is; physiologically distended with evidence of calculi. The gallbladder wall is not thickened and there i; s no pericholecystic fluid. There is no abdominal ascites.; The right kidney measures 11x5x4.6 cm, free of hydronephrosis.; IMPRESSION:; Cholelithiasis.; Thank you for your kind referral of this patient.; ; Outcome: 05:36 Discharge ordered by Provider. cs11 05:49 Discharge Assessment: Patient awake, alert and oriented x 3. No cognitive and/or js15 functional deficits noted. Patient verbalized understanding of disposition instructions. patient administered narcotics - yes. Pt provided with safe discharge. The following High Risk Discharge criteria are identified: None. Discharged to home ambulatory. Condition: stable. Discharge instructions given to patient, Instructed on discharge instructions, follow up and referral plans. medication usage, Demonstrated understanding of instructions, medications, Pt was receptive of discharge instructions/ teaching. Prescriptions given X 1. Ultrasound Study completed. Property sent home with patient. 05:54 Patient left the ED. js15 Signatures: Dispatcher [employer] EDMS Remigio Castelan, RN RN cz Oumou See, Supervisor [employer] ml3 Venessa Merino,RN RN ld5 Gaby Ascencio, RN ANTE PARTUM RN ANTE PARTUM Jesus Villegas, DO DO cs11 Amelia GaribayRN RN js15 Jessica Crain Paul, Reg Reg pm4 Corrections: (The following items were deleted from the chart) 01:46 01:41 General: Appears uncomfortable, ld5 ld5 MTDD
--- NOTE | 2016-11-29 05:55 | EDDOCDS ---
Physician Documentation [facility] Name: Phillip Molina Age: 61 yrs Sex: Male : 1955 Arrival Date: 11/29/2016 Time: 01:34 Bed 11 Private MD: Disposition: 11/29/16 05:36 Discharged to Home/Self Care. Impression: Other cholelithiasis without obstruction. - Condition is Stable. - Prescriptions for [place] 5- 325 mg Oral Tablet - take 1 tablet by ORAL route every 6 hours As needed MDD: 4 tabs; 20 tablet. - Medication Reconciliation, Local Pharmacy Hours form. - Follow up: Scott Wynn; When: As previously arranged. - Problem is an ongoing problem. - Symptoms have improved. Historical: - Allergies: no known allergies; - Home Meds: 1. Altace 10 mg Oral cap 2 caps once daily 2. Fish Oil Oral 3. omeprazole 40 mg Oral cpDR 1 cap once daily - PMHx: Diverticulitis; GERD; - PSHx: spleen repair; - Social history: Smoking status: Patient states was never smoker of tobacco. No barriers to communication noted, The patient speaks fluent Romanian, Speaks appropriately for age. - Family history: Not pertinent. - : The pt / caregiver states he / she is not on anticoagulants. Home medication list is obtained from the patient. - Exposure Risk Screening:: None identified. Vital Signs: 11/29 01:39 BP 197 / 91; Pulse 75; Resp 20; Temp 97.9; Pulse Ox 100% on R/A; Weight 99.79 kg / 220 ld5 lbs (R); Height 6 ft. 1 in. (185.42 cm) (R); Pain 10/10; 02:17 BP 192 / 98 (auto/); js15 02:18 Pulse 66 MON; Pulse Ox 100% ; js15 02:32 BP 192 / 99 (auto/); js15 02:32 Pulse 64 MON; Pulse Ox 100% ; js15 02:47 BP 191 / 130 (auto/); js15 02:47 Pulse 64 MON; Pulse Ox 99% ; js15 03:02 BP 211 / 97 (auto/); js15 03:02 Pulse 58 MON; Pulse Ox 100% ; js15 03:32 BP 195 / 98 (auto/); js15 03:32 Pulse 56 MON; Pulse Ox 95% ; js15 03:47 BP 193 / 103 (auto/); js15 03:47 Pulse 56 MON; Pulse Ox 99% ; js15 03:50 Pain 5/10; js15 04:02 BP 188 / 101 (auto/); js15 04:02 Pulse 54 MON; Pulse Ox 98% ; js15 04:16 Pulse 58 MON; Pulse Ox 98% ; js15 04:17 BP 187 / 97 (auto/); js15 04:31 Pulse 56 MON; Pulse Ox 96% ; js15 04:32 BP 187 / 100 (auto/); js15 04:46 Pulse 60 MON; Pulse Ox 97% ; js15 04:47 BP 181 / 98 (auto/); js15 05:02 Pulse 62 MON; Pulse Ox 94% ; js15 05:02 BP 187 / 104 (auto/); js15 05:17 BP 191 / 100 (auto/); js15 05:17 Pulse 64 MON; Pulse Ox 95% ; js15 05:32 BP 191 / 103 (auto/); js15 05:32 Pulse 66 MON; Pulse Ox 96% ; js15 05:47 BP 188 / 104 (auto/); js15 05:49 Pulse 68 MON; Resp 20; Temp 98.8(TE); Pulse Ox 97% ; Pain 7/10; js15 01:39 Body Mass Index 29.03 (99.79 kg, 185.42 cm) ld5 MDM: 02:01 ECG WITH READING ER PHYS+CARDIAG ordered. EDMS 02:52 Ondansetron 4 mg IVP once ordered. js15 02:52 IV Saline Lock ordered. js15 02:52 Undress patient appropriately for examination ordered. js15 02:53 Amylase Ordered. EDMS 02:53 Basic Metabolic Profile Ordered. EDMS 02:53 CBC with Diff Ordered. EDMS 02:53 Lipase Ordered. EDMS 02:53 Liver Profile Ordered. EDMS 02:54 NOTHING BY MOUTH+DIET ordered. EDMS 03:02 NS 0.9% 500 ml IV at bolus once ordered. cs11 03:02 Dilaudid - HYDROmorphone 0.5 mg IVP once ordered. cs11 03:04 Ultrasound Abd Limited Ordered. EDMS 03:21 Financial registration complete. pm4 03:30 [facility] Payment Agreement was scanned into [employer] and attached to record. pm4 04:05 Basic Metabolic Profile Reviewed. cs11 04:05 CBC with Diff Reviewed. cs11 04:05 Liver Profile Reviewed. cs11 04:05 Amylase Reviewed. cs11 04:05 Lipase Reviewed. cs11 05:29 Ultrasound Abd Limited Reviewed. cs11 Administered Medications: 02:52 Drug: Ondansetron 4 mg [ondansetron HCl 2 mg/mL intravenous solution (2 mL)] Route: js15 IVP; Site: left antecubital; 03:14 Drug: NS 0.9% 500 ml [sodium chloride 0.9 % intravenous solution] Route: IV; Rate: js15 bolus; Site: left antecubital; 05:00 Follow up: IV Status: Completed infusion; IV Intake: 500ml js15 03:14 Drug: Dilaudid - HYDROmorphone 0.5 mg [hydromorphone 1 mg/mL injection syringe (0.5 js15 mL)] Route: IVP; Site: left antecubital; 03:50 Follow up: Pain 5/10 Adult; Response: Pain is decreased js15 Signatures: Dispatcher [employer] EDVenessa Jeronimo,RN RN ld5 Jesus Gomez, DO DO cs11 Amelia GaribayRN RN js15 Romeo Hurley, Reg Reg pm4 The chart was reviewed and I authenticate all verbal orders and agree with the evaluation and treatment provided.Attachments: 03:30 [facility] Payment Agreement pm4 MTDD
--- NOTE | 2016-11-29 06:43 | ECGEPIP ---
Stationary ECG Study [facility] - ED Test Date: 2016-11-29 Pat Name: PARKER CHANG Department: Room: - Gender: M Collection Advisor: CallowayB: 1955 Requested By: MARILYNN HUNG Order Number: [id number] Reading MD: Elie Osorio Measurements Intervals [place] Rate: 66 P: 13 NV: 153 QRS: -15 QRSD: 98 T: 37 QT: 423 QTc: 446 Interpretive Statements SINUS RHYTHM Electronically Signed On 11-29-2016 6:43:09 EST by Elie Osorio
--- NOTE | 2016-12-01 06:55 | EDDOCDS ---
Physician Documentation [facility] Name: Phillip Molina Age: 61 yrs Sex: Male : 1955 Arrival Date: 11/29/2016 Time: 01:34 Bed 11 Private MD: Disposition: 11/29/16 05:36 Discharged to Home/Self Care. Impression: Other cholelithiasis without obstruction. - Condition is Stable. - Prescriptions for [place] 5- 325 mg Oral Tablet - take 1 tablet by ORAL route every 6 hours As needed MDD: 4 tabs; 20 tablet. - Medication Reconciliation, Local Pharmacy Hours form. - Follow up: Scott Wynn; When: As previously arranged. - Problem is an ongoing problem. - Symptoms have improved. Historical: - Allergies: no known allergies; - Home Meds: 1. Altace 10 mg Oral cap 2 caps once daily 2. Fish Oil Oral 3. omeprazole 40 mg Oral cpDR 1 cap once daily - PMHx: Diverticulitis; GERD; - PSHx: spleen repair; - Social history: Smoking status: Patient states was never smoker of tobacco. No barriers to communication noted, The patient speaks fluent Wolof, Speaks appropriately for age. - Family history: Not pertinent. - : The pt / caregiver states he / she is not on anticoagulants. Home medication list is obtained from the patient. - Exposure Risk Screening:: None identified. Vital Signs: 11/29 01:39 BP 197 / 91; Pulse 75; Resp 20; Temp 97.9; Pulse Ox 100% on R/A; Weight 99.79 kg / 220 ld5 lbs (R); Height 6 ft. 1 in. (185.42 cm) (R); Pain 10/10; 02:17 BP 192 / 98 (auto/); js15 02:18 Pulse 66 MON; Pulse Ox 100% ; js15 02:32 BP 192 / 99 (auto/); js15 02:32 Pulse 64 MON; Pulse Ox 100% ; js15 02:47 BP 191 / 130 (auto/); js15 02:47 Pulse 64 MON; Pulse Ox 99% ; js15 03:02 BP 211 / 97 (auto/); js15 03:02 Pulse 58 MON; Pulse Ox 100% ; js15 03:32 BP 195 / 98 (auto/); js15 03:32 Pulse 56 MON; Pulse Ox 95% ; js15 03:47 BP 193 / 103 (auto/); js15 03:47 Pulse 56 MON; Pulse Ox 99% ; js15 03:50 Pain 5/10; js15 04:02 BP 188 / 101 (auto/); js15 04:02 Pulse 54 MON; Pulse Ox 98% ; js15 04:16 Pulse 58 MON; Pulse Ox 98% ; js15 04:17 BP 187 / 97 (auto/); js15 04:31 Pulse 56 MON; Pulse Ox 96% ; js15 04:32 BP 187 / 100 (auto/); js15 04:46 Pulse 60 MON; Pulse Ox 97% ; js15 04:47 BP 181 / 98 (auto/); js15 05:02 Pulse 62 MON; Pulse Ox 94% ; js15 05:02 BP 187 / 104 (auto/); js15 05:17 BP 191 / 100 (auto/); js15 05:17 Pulse 64 MON; Pulse Ox 95% ; js15 05:32 BP 191 / 103 (auto/); js15 05:32 Pulse 66 MON; Pulse Ox 96% ; js15 05:47 BP 188 / 104 (auto/); js15 05:49 Pulse 68 MON; Resp 20; Temp 98.8(TE); Pulse Ox 97% ; Pain 7/10; js15 01:39 Body Mass Index 29.03 (99.79 kg, 185.42 cm) ld5 MDM: 02:01 ECG WITH READING ER PHYS+CARDIAG ordered. EDMS 02:52 Ondansetron 4 mg IVP once ordered. js15 02:52 IV Saline Lock ordered. js15 02:52 Undress patient appropriately for examination ordered. js15 02:53 Amylase Ordered. EDMS 02:53 Basic Metabolic Profile Ordered. EDMS 02:53 CBC with Diff Ordered. EDMS 02:53 Lipase Ordered. EDMS 02:53 Liver Profile Ordered. EDMS 02:54 NOTHING BY MOUTH+DIET ordered. EDMS 03:02 NS 0.9% 500 ml IV at bolus once ordered. cs11 03:02 Dilaudid - HYDROmorphone 0.5 mg IVP once ordered. cs11 03:04 Ultrasound Abd Limited Ordered. EDMS 03:21 Financial registration complete. pm4 03:30 [facility] Payment Agreement was scanned into [employer] and attached to record. pm4 04:05 Basic Metabolic Profile Reviewed. cs11 04:05 CBC with Diff Reviewed. cs11 04:05 Liver Profile Reviewed. cs11 04:05 Amylase Reviewed. cs11 04:05 Lipase Reviewed. cs11 05:29 Ultrasound Abd Limited Reviewed. cs11 14:32 T-Sheet-- Draft Copy was scanned into [employer] and attached to record. gb 14:33 ECG/EKG was scanned into [employer] and attached to record. gb Administered Medications: 02:52 Drug: Ondansetron 4 mg [ondansetron HCl 2 mg/mL intravenous solution (2 mL)] Route: js15 IVP; Site: left antecubital; 03:14 Drug: NS 0.9% 500 ml [sodium chloride 0.9 % intravenous solution] Route: IV; Rate: js15 bolus; Site: left antecubital; 05:00 Follow up: IV Status: Completed infusion; IV Intake: 500ml js15 03:14 Drug: Dilaudid - HYDROmorphone 0.5 mg [hydromorphone 1 mg/mL injection syringe (0.5 js15 mL)] Route: IVP; Site: left antecubital; 03:50 Follow up: Pain 5/10 Adult; Response: Pain is decreased js15 Signatures: Dispatcher [employer] EDNory Chaidez, Reg Reg gb Venessa Merino,RN RN ld5 Jesus Gomez, DO cs11 Amelia GaribayRN RN js15 Romeo Hurley, Reg Reg pm4 The chart was reviewed and I authenticate all verbal orders and agree with the evaluation and treatment provided.Attachments: 03:30 [facility] Payment Agreement pm4 14:32 T-Sheet-- Draft Copy gb 14:33 ECG/EKG gb Chart Complete MTDD
--- NOTE | 2016-12-01 06:55 | EDDOCDS ---
Physician Documentation [facility] Name: Phillip Molina Age: 61 yrs Sex: Male : 1955 Arrival Date: 11/29/2016 Time: 01:34 Bed 11 Private MD: Disposition: 11/29/16 05:36 Discharged to Home/Self Care. Impression: Other cholelithiasis without obstruction. - Condition is Stable. - Prescriptions for [place] 5- 325 mg Oral Tablet - take 1 tablet by ORAL route every 6 hours As needed MDD: 4 tabs; 20 tablet. - Medication Reconciliation, Local Pharmacy Hours form. - Follow up: Scott Wynn; When: As previously arranged. - Problem is an ongoing problem. - Symptoms have improved. Historical: - Allergies: no known allergies; - Home Meds: 1. Altace 10 mg Oral cap 2 caps once daily 2. Fish Oil Oral 3. omeprazole 40 mg Oral cpDR 1 cap once daily - PMHx: Diverticulitis; GERD; - PSHx: spleen repair; - Social history: Smoking status: Patient states was never smoker of tobacco. No barriers to communication noted, The patient speaks fluent Syriac, Speaks appropriately for age. - Family history: Not pertinent. - : The pt / caregiver states he / she is not on anticoagulants. Home medication list is obtained from the patient. - Exposure Risk Screening:: None identified. Vital Signs: 11/29 01:39 BP 197 / 91; Pulse 75; Resp 20; Temp 97.9; Pulse Ox 100% on R/A; Weight 99.79 kg / 220 ld5 lbs (R); Height 6 ft. 1 in. (185.42 cm) (R); Pain 10/10; 02:17 BP 192 / 98 (auto/); js15 02:18 Pulse 66 MON; Pulse Ox 100% ; js15 02:32 BP 192 / 99 (auto/); js15 02:32 Pulse 64 MON; Pulse Ox 100% ; js15 02:47 BP 191 / 130 (auto/); js15 02:47 Pulse 64 MON; Pulse Ox 99% ; js15 03:02 BP 211 / 97 (auto/); js15 03:02 Pulse 58 MON; Pulse Ox 100% ; js15 03:32 BP 195 / 98 (auto/); js15 03:32 Pulse 56 MON; Pulse Ox 95% ; js15 03:47 BP 193 / 103 (auto/); js15 03:47 Pulse 56 MON; Pulse Ox 99% ; js15 03:50 Pain 5/10; js15 04:02 BP 188 / 101 (auto/); js15 04:02 Pulse 54 MON; Pulse Ox 98% ; js15 04:16 Pulse 58 MON; Pulse Ox 98% ; js15 04:17 BP 187 / 97 (auto/); js15 04:31 Pulse 56 MON; Pulse Ox 96% ; js15 04:32 BP 187 / 100 (auto/); js15 04:46 Pulse 60 MON; Pulse Ox 97% ; js15 04:47 BP 181 / 98 (auto/); js15 05:02 Pulse 62 MON; Pulse Ox 94% ; js15 05:02 BP 187 / 104 (auto/); js15 05:17 BP 191 / 100 (auto/); js15 05:17 Pulse 64 MON; Pulse Ox 95% ; js15 05:32 BP 191 / 103 (auto/); js15 05:32 Pulse 66 MON; Pulse Ox 96% ; js15 05:47 BP 188 / 104 (auto/); js15 05:49 Pulse 68 MON; Resp 20; Temp 98.8(TE); Pulse Ox 97% ; Pain 7/10; js15 01:39 Body Mass Index 29.03 (99.79 kg, 185.42 cm) ld5 MDM: 02:01 ECG WITH READING ER PHYS+CARDIAG ordered. EDMS 02:52 Ondansetron 4 mg IVP once ordered. js15 02:52 IV Saline Lock ordered. js15 02:52 Undress patient appropriately for examination ordered. js15 02:53 Amylase Ordered. EDMS 02:53 Basic Metabolic Profile Ordered. EDMS 02:53 CBC with Diff Ordered. EDMS 02:53 Lipase Ordered. EDMS 02:53 Liver Profile Ordered. EDMS 02:54 NOTHING BY MOUTH+DIET ordered. EDMS 03:02 NS 0.9% 500 ml IV at bolus once ordered. cs11 03:02 Dilaudid - HYDROmorphone 0.5 mg IVP once ordered. cs11 03:04 Ultrasound Abd Limited Ordered. EDMS 03:21 Financial registration complete. pm4 03:30 [facility] Payment Agreement was scanned into [employer] and attached to record. pm4 04:05 Basic Metabolic Profile Reviewed. cs11 04:05 CBC with Diff Reviewed. cs11 04:05 Liver Profile Reviewed. cs11 04:05 Amylase Reviewed. cs11 04:05 Lipase Reviewed. cs11 05:29 Ultrasound Abd Limited Reviewed. cs11 14:32 T-Sheet-- Draft Copy was scanned into [employer] and attached to record. gb 14:33 ECG/EKG was scanned into [employer] and attached to record. gb Administered Medications: 02:52 Drug: Ondansetron 4 mg [ondansetron HCl 2 mg/mL intravenous solution (2 mL)] Route: js15 IVP; Site: left antecubital; 03:14 Drug: NS 0.9% 500 ml [sodium chloride 0.9 % intravenous solution] Route: IV; Rate: js15 bolus; Site: left antecubital; 05:00 Follow up: IV Status: Completed infusion; IV Intake: 500ml js15 03:14 Drug: Dilaudid - HYDROmorphone 0.5 mg [hydromorphone 1 mg/mL injection syringe (0.5 js15 mL)] Route: IVP; Site: left antecubital; 03:50 Follow up: Pain 5/10 Adult; Response: Pain is decreased js15 Signatures: Dispatcher [employer] EDNory Chaidez, Reg Reg gb Venessa Merino,RN RN ld5 Jesus Gomez, DO cs11 Amelia GaribayRN RN js15 Romeo Hurley, Reg Reg pm4 The chart was reviewed and I authenticate all verbal orders and agree with the evaluation and treatment provided.Attachments: 03:30 [facility] [place] pm4 14:32 T-Sheet-- Draft Copy gb 14:33 ECG/EKG gb Chart Complete MTDD
--- NOTE | 2016-12-01 06:55 | EDDOCDS ---
Nurse's Notes [facility] Name: Parker Chang Age: 61 yrs Sex: Male : 1955 Arrival Date: 11/29/2016 Time: 01:34 Bed 11 Private MD: Diagnosis: Other cholelithiasis without obstruction Presentation: 11/29 01:40 Presenting complaint: Patient states: Epigastric pain starting around 2230 while ld5 sitting up in chair. + Nausea/vomiting. Adult Sepsis Screening: The patient does not have new or worsening altered mentation. Patient's respiratory rate is less than 22. Systolic blood pressure is greater than 100. Patient has a qSOFA score of 0- Negative Sepsis Screen. Suicide/Homicide risk assessment- the patient denies having any suicidal and/or homicidal ideations and does not present with any other emotional, behavioral or mental health complaints. Status: Patient is not a services clerk or dependent. Transition of care: patient was not received from another setting of care. 01:40 Acuity: VARUN Level 3 ld5 01:40 Method Of Arrival: Walkin/Carried/Asstd ld5 Triage Assessment: 01:41 General: Appears uncomfortable, Behavior is cooperative, restless. Pain: Location: ld5 epigastric area Pain currently is 10 out of 10 on a pain scale. Pain began 2230. HIV screening NA for this visit Offered previously. Neurological: Level of Consciousness is awake, alert. Respiratory: Airway is patent Respiratory effort is even, unlabored. GI: Reports nausea, vomiting. Historical: - Allergies: no known allergies; - Home Meds: 1. Altace 10 mg Oral cap 2 caps once daily 2. Fish Oil Oral 3. omeprazole 40 mg Oral cpDR 1 cap once daily - PMHx: Diverticulitis; GERD; - PSHx: spleen repair; - Social history: Smoking status: Patient states was never smoker of tobacco. No barriers to communication noted, The patient speaks fluent Danish, Speaks appropriately for age. - Family history: Not pertinent. - : The pt / caregiver states he / she is not on anticoagulants. Home medication list is obtained from the patient. - Exposure Risk Screening:: None identified. Screenin:18 Screening information is obtained from the patient. Fall risk: No risks identified. js15 Assistance ADL's: requires no assistance with activities of daily living. Abuse/DV Screen: The patient / caregiver reports he/she is: not in a situation that causes fear, pain or injury. Nutritional screening: No deficits noted. Advance Directives: There is no active DNR order. home support is adequate. Assessment: 02:15 General: Appears uncomfortable, Behavior is anxious, appropriate for age, cooperative. js15 Pain: Location: right upper quadrant and epigastric area Pain currently is 10 out of 10 on a pain scale. Neurological: Level of Consciousness is awake, alert, obeys commands, Oriented to person, place, time. Cardiovascular: Rhythm is regular. Respiratory: Airway is patent Respiratory effort is even, unlabored, Respiratory pattern is regular, symmetrical, Breath sounds are clear bilaterally. GI: Abdomen is non- distended Bowel sounds present X 4 quads. Abd is soft X 4 quads Abd is tender to palpation in epigastric area and right upper quadrant Reports nausea. Derm: Skin is. 03:16 Reassessment: Pt appears uncomfortable; pain meds administered per MD orders; will js15 continue to monitor. 04:09 Reassessment: Patient appears in no apparent distress at this time. Patient states js15 feeling better. Patient states symptoms have improved. Pt resting on stretcher with eyes closed; respirations even and unlabored; skin pink, warm, dry; will continue to monitor. 05:30 General: Appears in no apparent distress, comfortable, Behavior is appropriate for age, js15 cooperative. Pain: Location: right upper quadrant and epigastric area. Neurological: Level of Consciousness is awake, alert, obeys commands, Oriented to person, place, time. Respiratory: Airway is patent Respiratory effort is even, unlabored, Respiratory pattern is regular, symmetrical. Derm: Skin is pink, warm & dry. Vital Signs: 01:39 BP 197 / 91; Pulse 75; Resp 20; Temp 97.9; Pulse Ox 100% on R/A; Weight 99.79 kg (R); ld5 Height 6 ft. 1 in. (185.42 cm) (R); Pain 10/10; 02:17 BP 192 / 98 (auto/); js15 02:18 Pulse 66 MON; Pulse Ox 100% ; js15 02:32 BP 192 / 99 (auto/); js15 02:32 Pulse 64 MON; Pulse Ox 100% ; js15 02:47 BP 191 / 130 (auto/); js15 02:47 Pulse 64 MON; Pulse Ox 99% ; js15 03:02 BP 211 / 97 (auto/); js15 03:02 Pulse 58 MON; Pulse Ox 100% ; js15 03:32 BP 195 / 98 (auto/); js15 03:32 Pulse 56 MON; Pulse Ox 95% ; js15 03:47 BP 193 / 103 (auto/); js15 03:47 Pulse 56 MON; Pulse Ox 99% ; js15 03:50 Pain 5/10; js15 04:02 BP 188 / 101 (auto/); js15 04:02 Pulse 54 MON; Pulse Ox 98% ; js15 04:16 Pulse 58 MON; Pulse Ox 98% ; js15 04:17 BP 187 / 97 (auto/); js15 04:31 Pulse 56 MON; Pulse Ox 96% ; js15 04:32 BP 187 / 100 (auto/); js15 04:46 Pulse 60 MON; Pulse Ox 97% ; js15 04:47 BP 181 / 98 (auto/); js15 05:02 Pulse 62 MON; Pulse Ox 94% ; js15 05:02 BP 187 / 104 (auto/); js15 05:17 BP 191 / 100 (auto/); js15 05:17 Pulse 64 MON; Pulse Ox 95% ; js15 05:32 BP 191 / 103 (auto/); js15 05:32 Pulse 66 MON; Pulse Ox 96% ; js15 05:47 BP 188 / 104 (auto/); js15 05:49 Pulse 68 MON; Resp 20; Temp 98.8(TE); Pulse Ox 97% ; Pain 7/10; js15 01:39 Body Mass Index 29.03 (99.79 kg, 185.42 cm) ld5 Vitals: 01:39 Log In Time: November 29, 2016 at 01:32. ld5 ED Course: 01:35 Patient visited by Jessica Crain. gjb 01:35 Patient moved to Waiting gjb 01:40 Triage Initiated ld5 01:42 Patient visited by Venessa Merino,NINA. ld5 01:49 Aixa Sykes,NINA is Primary Nurse. ml3 01:49 Patient moved to 8 ml3 01:50 Patient moved to Triage 1 ml3 01:59 Patient moved to 11 cz 02:05 Patient visited by Sonu, Gaby, NAIL ARTIST. rodrigo 02:05 EKG done. (by ED staff). Reviewed by Marilynn Hung DO. rodrigo 02:30 Inserted saline lock: 20 gauge in left antecubital area The patient tolerated the js15 procedure well. 02:59 Marilynn Hung DO is Attending Physician. cs11 02:59 Patient visited by Marilynn Hung DO. cs11 03:30 Patient name changed from Parker\S\R\S\Jesse\S\ to Parker\S\Oneil\S\Jesse. EDMS 03:30 [facility] [place] Payment Agreement was scanned into [employer] and attached to record. pm4 04:00 The patient / caregiver is instructed regarding the plan of care and ED course. js15 04:00 No procedures done that require assistance. js15 04:08 Patient visited by Amelia Garibay RN. js15 04:15 Ultrasound Abd Limited Returned. EDMS 05:17 Patient visited by Amelia Garibay RN. js15 05:35 Scott Wynn is Referral Physician. cs11 05:49 Discontinued IV lock intact, bleeding controlled, pressure dressing applied, No js15 redness/swelling at site. 06:54 EKG-ADULT Returned. EDMS 14:32 T-Sheet-- Draft Copy was scanned into [employer] and attached to record. gb 14:33 ECG/EKG was scanned into [employer] and attached to record. gb Administered Medications: 02:52 Drug: Ondansetron 4 mg [ondansetron HCl 2 mg/mL intravenous solution (2 mL)] Route: js15 IVP; Site: left antecubital; 03:14 Drug: NS 0.9% 500 ml [sodium chloride 0.9 % intravenous solution] Route: IV; Rate: js15 bolus; Site: left antecubital; 05:00 Follow up: IV Status: Completed infusion; IV Intake: 500ml js15 03:14 Drug: Dilaudid - HYDROmorphone 0.5 mg [hydromorphone 1 mg/mL injection syringe (0.5 js15 mL)] Route: IVP; Site: left antecubital; 03:50 Follow up: Pain 5/10 Adult; Response: Pain is decreased js15 Intake: 05:00 IV: 500.00ml; Total: 500.00ml. js15 Order Results: Lab Order: Amylase; SPEC'M 11/29/16 02:25 Test: AMYLASE; Value: 50; Range: 25-115; Units: U/L; Status: F Lab Order: Basic Metabolic Profile; SPEC11/29/16 02:25 Test: GLUCOSE, FASTING; Value: 141; Range: 80-110; Abnormal: Above high normal; Units: MG/DL; Status: F Test: BLOOD UREA NITROGEN; Value: 14; Range: 7-18; Units: MG/DL; Status: F Test: CREATININE FOR GFR; Value: 1.31; Range: 0.70-1.30; Abnormal: Above high normal; Units: MG/DL; Status: F Test: GLOMERULAR FILTRATION RATE; Value: 58.8; Range: >49; Status: F Test: SODIUM LEVEL; Value: 140; Range: 136-145; Units: MEQ/L; Status: F Test: POTASSIUM SERUM; Value: 3.6; Range: 3.5-5.1; Units: MEQ/L; Status: F Test: CHLORIDE LEVEL; Value: 106; Range: 98-107; Units: MEQ/L; Status: F Test: CARBON DIOXIDE LEVEL; Value: 23; Range: 21-32; Units: MEQ/L; Status: F Test: ANION GAP; Value: 11; Range: 8-16; Units: MEQ/L; Status: F Test: CALCIUM LEVEL; Value: 9.2; Range: 8.8-10.2; Units: MG/DL; Status: F Test Note: ; Units are mL/min/1.73 m2 Chronic Kidney Disease Staging per NKF: Stage I & II GFR >=60 Normal to Mildly Decreased Stage III GFR 30-59 Moderately Decreased Stage IV GFR 15-29 Severely Decreased Stage V GFR <15 Very Little GFR Left ESRD GFR <15 on DIRECTOR OF GRADUATE ADMISSIONS Lab Order: CBC with Diff; SPEC11/29/16 02:25 Test: WHITE BLOOD COUNT; Value: 13.3; Range: 4.0-10.0; Abnormal: Above high normal; Units: K/mm3; Status: F Test: RED BLOOD COUNT; Value: 4.98; Range: 4.30-6.10; Units: M/mm3; Status: F Test: HEMOGLOBIN; Value: 14.8; Range: 14.0-18.0; Units: g/dl; Status: F Test: HEMATOCRIT; Value: 41.8; Range: 42.0-52.0; Abnormal: Below low normal; Units: %; Status: F Test: MEAN CORPUSCULAR VOLUME; Value: 83.9; Range: 80.0-96.0; Units: fl; Status: F Test: MEAN CORPUSCULAR HEMOGLOBIN; Value: 29.7; Range: 27.0-33.0; Units: pg; Status: F Test: MEAN CORPUSCULAR HGB CONC; Value: 35.4; Range: 32.0-36.5; Units: g/dl; Status: F Test: RED CELL DISTRIBUTION WIDTH; Value: 12.3; Range: 11.5-14.5; Units: %; Status: F Test: PLATELET COUNT, AUTOMATED; Value: 308; Range: 150-450; Units: k/mm3; Status: F Test: NEUTROPHILS %; Value: 79.8; Range: 36.0-66.0; Abnormal: Above high normal; Units: %; Status: F Test: LYMPH %; Value: 12.8; Range: 24.0-44.0; Abnormal: Below low normal; Units: %; Status: F Test: MONO %; Value: 4.6; Range: 0.0-5.0; Units: %; Status: F Test: EOS %; Value: 1.1; Range: 0.0-3.0; Units: %; Status: F Test: BASO %; Value: 0.4; Range: 0.0-1.0; Units: %; Status: F Test: LARGE UNSTAINED CELL %; Value: 1.3; Range: 0.0-4.0; Units: %; Status: F Test: NEUTROPHILS #; Value: 10.6; Range: 1.8-7.7; Abnormal: Above high normal; Units: K/mm3; Status: F Test: LYMPH #; Value: 1.9; Range: 1.5-4.5; Units: K/mm3; Status: F Test: MONO #; Value: 0.6; Range: 0.0-0.8; Units: K/mm3; Status: F Test: EOS #; Value: 0.1; Range: 0.0-0.50; Units: K/mm3; Status: F Test: BASO #; Value: 0.0; Range: 0.0-0.2; Units: K/mm3; Status: F Test: LARGE UNSTAINED CELL #; Value: 0.2; Range: 0.0-0.4; Units: K/mm3; Status: F Lab Order: Lipase; SPEC' 11/29/16 02:25 Test: LIPASE; Value: 164; Range: 73-393; Units: U/L; Status: F Lab Order: Liver Profile; SPEC' 11/29/16 02:25 Test: AST/SGOT; Value: 15; Range: 15-37; Units: U/L; Status: F Test: ALT/SGPT; Value: 30; Range: 12-78; Units: U/L; Status: F Test: ALKALINE PHOSPHATASE; Value: 120; Range: 45-117; Abnormal: Above high normal; Units: U/L; Status: F Test: BILIRUBIN,TOTAL; Value: 0.9; Range: 0.2-1.0; Units: MG/DL; Status: F Test: BILIRUBIN,DIRECT; Value: 0.1; Range: 0.0-0.2; Units: MG/DL; Status: F Test: TOTAL PROTEIN; Value: 7.8; Range: 6.4-8.2; Units: GM/DL; Status: F Test: ALBUMIN; Value: 3.6; Range: 3.2-5.2; Units: GM/DL; Status: F Test: ALBUMIN/GLOBULIN RATIO; Value: 0.86; Range: 1.00-1.93; Abnormal: Below low normal; Status: F Radiology Order: EKG-ADULT Test: EKG-ADULT REASON FOR EXAMINATION: epigastric pain; Stationary ECG Study; [facility] [place] - ED; ; Test Date: 2016-11-29; Pat Name: PARKER CHANG Department:; Room: -; Gender: M [employer]: devante; : 1955 Requested By: MARILYNN HUNG; Order Number: [id number] Reading MD: Elie Osorio; Measurements; Intervals Turner; Rate: 66 P: 13; CO: 153 QRS: -15; QRSD: 98 T: 37; QT: 423; QTc: 446; Interpretive Statements; SINUS RHYTHM; ; Electronically Signed On 11-29-2016 6:43:09 EST by Elie Osorio; Radiology Order: Ultrasound Abd Limited Test: Ultrasound Abd Limited REASON FOR EXAMINATION: Biliary Colic; ; CLINICAL HISTORY: Abdominal pain.; TECHNIQUE: Realtime sonographic images were obtained in multiple projections.; COMMENTS:; The liver is of normal size, parenchyma demonstrates normal echogenicity. No discrete hepatic mass is; seen.; There is no intra or extrahepatic biliary ductal dilatation. CBD measures 4.1mm . The gallbladder is; physiologically distended with evidence of calculi. The gallbladder wall is not thickened and there i; s no pericholecystic fluid. There is no abdominal ascites.; The right kidney measures 11x5x4.6 cm, free of hydronephrosis.; IMPRESSION:; Cholelithiasis.; Thank you for your kind referral of this patient.; ; Outcome: 05:36 Discharge ordered by Provider. cs11 05:49 Discharge Assessment: Patient awake, alert and oriented x 3. No cognitive and/or js15 functional deficits noted. Patient verbalized understanding of disposition instructions. patient administered narcotics - yes. Pt provided with safe discharge. The following High Risk Discharge criteria are identified: None. Discharged to home ambulatory. Condition: stable. Discharge instructions given to patient, Instructed on discharge instructions, follow up and referral plans. medication usage, Demonstrated understanding of instructions, medications, Pt was receptive of discharge instructions/ teaching. Prescriptions given X 1. Ultrasound Study completed. Property sent home with patient. 05:54 Patient left the ED. js15 Signatures: Dispatcher [employer] EDMS Remigio Castelan, RN RN Nory Medina, Reg Reg gb Carolin Seebeth, Insurance Inspector Unit ml3 Venessa Merino,RN RN ld5 Gaby Ascencio, LESLI NAIL ARTIST Marilynn Villegas, DO cs11 Amelia GaribayRN RN js15 Jessica Crain Paul, Reg Reg pm4 Corrections: (The following items were deleted from the chart) 01:46 01:41 General: Appears uncomfortable, ld5 ld5 Chart Complete MTDD
== END 2016-11-29 05:54 | disposition home or self-care (01) ==
LOC: M ED 01:34
DX: K80.20 Calculus of gallbladder without cholecystitis without obstruction (principal); K21.9 Gastro-esophageal reflux disease without esophagitis; K57.92 Diverticulitis of intestine, part unspecified, without perforation or abscess without bleeding; Z79.899 Other long term (current) drug therapy
CPT/HCPCS: 76705; 80048; 80076; 82150; 83690; 85025; 93005; 96361; 96374; 96375; 99284; J1170; J2405

== ENCOUNTER 2016-11-29 16:59 | Emergency (ER) | payer OTHER ==
[2016-11-29] MEDS ORDERED: GI COCKTAIL 50ML BTL(HYOSCYAMINE/MAALOX/LIDOCAINE VISCOUS)(1:3:1) As Ordered ONE (17:25)
[2016-11-29] MEDS ORDERED: SUCRALFATE 1 GM TAB As Ordered ONE (17:27)
[2016-11-29 18:13] LABS: BASO % 0.1 % (0.0-1.0); EOS # 0.1 K/mm3 (0.0-0.50); EOS % 0.4 % (0.0-3.0); LARGE UNSTAINED CELL # 0.1 K/mm3 (0.0-0.4); LARGE UNSTAINED CELL % 0.5 % (0.0-4.0); LYMPH # 0.8 K/mm3 (1.5-4.5); LYMPH % 3.5 % (24.0-44.0); MEAN CORPUSCULAR HEMOGLOBIN 30.2 pg (27.0-33.0); MEAN CORPUSCULAR HGB CONC 35.5 g/dl (32.0-36.5); MEAN CORPUSCULAR VOLUME 85.1 fl (80.0-96.0); MONO % 5.3 % (0.0-5.0); NEUTROPHILS % 90.3 % (36.0-66.0); PLATELET COUNT, AUTOMATED 279 k/mm3 (150-450); RED CELL DISTRIBUTION WIDTH 12.6 % (11.5-14.5); WHITE BLOOD COUNT 18.8 K/mm3 (4.0-10.0)
[2016-11-29 18:18] LABS: ALBUMIN 3.4 GM/DL (3.2-5.2); ALBUMIN/GLOBULIN RATIO 0.87 (1.00-1.93); ALKALINE PHOSPHATASE 125 U/L (45-117); ALT/SGPT 29 U/L (12-78); AMYLASE 34 U/L (25-115); ANION GAP 11 MEQ/L (8-16); AST/SGOT 14 U/L (15-37); BILIRUBIN,TOTAL 1.1 MG/DL (0.2-1.0); BLOOD UREA NITROGEN 14 MG/DL (7-18); CALCIUM LEVEL 8.9 MG/DL (8.8-10.2); CARBON DIOXIDE LEVEL 22 MEQ/L (21-32); CHLORIDE LEVEL 106 MEQ/L (98-107); CREATININE FOR GFR 1.11 MG/DL (0.70-1.30); GLOMERULAR FILTRATION RATE > 60.0 (>49); GLUCOSE, FASTING 150 MG/DL (80-110); POTASSIUM SERUM 3.9 MEQ/L (3.5-5.1); SODIUM LEVEL 139 MEQ/L (136-145); TOTAL PROTEIN 7.3 GM/DL (6.4-8.2)
[2016-11-29] MEDS ORDERED: ISOVUE-370 76% 100ML VIAL (Q9967) As Ordered ONE (18:38)
--- NOTE | 2016-11-29 19:00 | REPUSA ---
CT of the abdomen and pelvis with contrast Clinical statement: Pain. Technique: Multiple axial CT images were obtained from the base of the lungs through the floor of the pelvis utilizing 5 mm axial slices after administration of nonionic intravenous contrast. Coronal an d sagittal reconstructions were also obtained. No comparison is available. Findings: Chest: The visualized lung bases are clear. There is a small hiatal hernia. Abdomen: The liver, spleen, pancreas, kidneys, and adrenal glands are unremarkable. There are bilater al simple renal cysts appreciated. The gallbladder is distended. Several tiny gallstones are noted. T he aorta is within normal limits. There is no evidence of abdominal lymphadenopathy or ascites. Pelvis: There is focal bowel wall thickening in the sigmoid colon, with diffuse sigmoid diverticulosi s appreciated. No evidence of perforation or abscess is appreciated at this time. There is no evidenc e of bowel obstruction. The appendix is normal. The urinary bladder is within normal limits. The othe r pelvic structures appear grossly intact. There is no evidence of pelvic lymphadenopathy or ascites. Bones: There are no suspicious osseous abnormalities seen. Impression: 1. Acute sigmoid diverticulitis. No evidence of abscess or perforation. No bowel obstruction. 2. Small hiatal hernia. 3. Cholelithiasis without evidence of acute cholecystitis.
[2016-11-29] MEDS ORDERED: diphenhydrAMINE INJ 50MG/ML VIAL (J1200) As Ordered ONE (19:15)
[2016-11-29] MEDS ORDERED: METOCLOPRAMIDE INJ 10MG/2ML VIAL (J2765) As Ordered ONE (19:15)
[2016-11-29] MEDS ORDERED: CIPROFLOXACIN 500 MG TAB As Ordered ONE (19:38)
[2016-11-29] MEDS ORDERED: metroNIDAZOLE/NACL 500MG(5MG/ML)100 ML BAG (S0030) As Ordered ONE (19:39)
--- NOTE | 2016-11-29 22:28 | EDDOCDS ---
Physician Documentation [facility] Name: Phillip Molina Age: 61 yrs Sex: Male : 1955 Arrival Date: 11/29/2016 Time: 16:59 Bed I5 / M5 Private MD: Nicky Berry Disposition: 11/29/16 21:30 Discharged to Home/Self Care. Impression: Diverticulitis of large intestine without perforation or abscess without bleeding, Other cholelithiasis without obstruction. - Condition is Stable. - Discharge Instructions: Diverticulitis, [id number]. - Prescriptions for Cipro 500 mg Oral Tablet - take 1 tablet by ORAL route every 12 hours; 14 tablet. Flagyl 500 mg Oral Tablet - take 1 tablet by ORAL route every 8 hours for 10 days; 30 tablet. Reglan 10 mg Oral Tablet - take 1 tablet by ORAL route every 6 hours take 30 minutes before meals and at bedtime; 20 tablet. Medrol (Jamal) 4 mg Oral Tablets, Dose Pack - take 1 Pack by ORAL route as directed - follow package instructions; 1 packet. - Medication Reconciliation, Local Pharmacy Hours form. - Follow up: Nicky Berry; When: Call to arrange an appointment; Reason: Further diagnostic work-up, Recheck today's complaints, Continuance of care. - Problem is an ongoing problem. - Symptoms have improved. Historical: - Allergies: no known allergies; - Home Meds: 1. Altace 10 mg Oral cap 2 caps once daily 2. Fish Oil Oral 3. omeprazole 40 mg Oral cpDR 1 cap once daily 4. Nimitz 5-325 mg Oral tab every 4-6 hours prn (Last dose: 11/29/2016 12:00) - PMHx: Diverticulitis; GERD; Cholecystitis; - PSHx: spleen repair; - Social history: Smoking status: Patient states was never smoker of tobacco. No barriers to communication noted, The patient speaks fluent Lao, Speaks appropriately for age. - Family history: Not pertinent. - : The pt / caregiver states he / she is not on anticoagulants. Home medication list is obtained from the patient. - Exposure Risk Screening:: None identified. Vital Signs: 11/29 16:59 BP 153 / 107 RA Sitting (auto/lg); Pulse 83; Resp 16; Temp 99.0(O); Pulse Ox 99% on rs6 R/A; Weight 99.79 kg / 220 lbs (R); Height 6 ft. 1 in. (185.42 cm) (R); Pain 10/10; 19:10 BP 174 / 90 RA Supine (/lg); Pulse 77; Resp 18; Temp 100.0(O); Pulse Ox 98% on R/A; lf1 Pain 0/10; 21:35 BP 154 / 86; Pulse 76; Resp 18; Temp 99.9; Pulse Ox 97% ; Pain 2/10; ajs 16:59 Body Mass Index 29.03 (99.79 kg, 185.42 cm) rs6 MDM: 17:24 GI Cocktail - (Alum-Mag Hydroxide-Simeth 30 ml, Lidocaine 10 ml, Hyoscyamine 10 ml) PO btw once; Pre-mixed 50mL unit dose ordered. 17:25 Sucralfate 1 grams PO once ordered. btw 17:25 CBC with Diff Ordered. EDMS 17:25 Complete Comphrensive Metabolic Ordered. EDMS 17:25 Amylase Ordered. EDMS 17:25 Lipase Ordered. EDMS 17:28 Financial registration complete. ks16 17:28 [facility] Payment Agreement was scanned into [employer] and attached to record. ks16 18:29 CBC with Diff Reviewed. btw 18:29 Complete Comphrensive Metabolic Reviewed. btw 18:29 Lipase Reviewed. btw 18:29 Amylase Reviewed. btw 18:30 IV Saline Lock ordered. btw 18:32 CT ABD & PELVIS: IV Contrast Only Ordered. EDMS 19:06 Metoclopramide 20 mg IV at 80 mg/hr once over 15 mins ordered. btw 19:06 diphenhydrAMINE 50 mg IVP once ordered. btw 19:30 Ciprofloxacin 500 mg PO once ordered. btw 19:30 metroNIDAZOLE 500 mg IV at 100 mL/hr once over 60 mins ordered. btw Administered Medications: 17:30 Drug: GI Cocktail - (Alum-Mag Hydroxide-Simeth Suspension 225 mg-200 mg-25 mg/5 mL 30 js13 ml, Lidocaine Liquid 2 % 10 ml, Hyoscyamine Liquid 10 ml) Route: PO; 17:39 Drug: Sucralfate 1 grams [sucralfate 1 gram tablet (1 tabs)] Route: PO; js13 19:25 Drug: diphenhydrAMINE 50 mg [diphenhydramine 50 mg/mL injection solution (1 mL)] Route: lf1 IVP; Site: left forearm; 19:26 Drug: Metoclopramide 20 mg [metoclopramide 5 mg/mL injection solution] Route: IV; Rate: lf1 80 mg/hr; Infused Over: 15 mins; Site: left forearm; 20:17 Follow up: IV Status: Completed infusion; IV Intake: 50ml lf1 19:44 Drug: Ciprofloxacin 500 mg [ciprofloxacin 500 mg tablet (1 tabs)] Route: PO; lf1 22:22 Follow up: Response: No Adverse Reaction lf1 20:17 Drug: metroNIDAZOLE 500 mg [metronidazole 500 mg/100 mL-sodium chloride(iso) lf1 intravenous piggyback] Route: IV; Rate: 100 mL/hr; Infused Over: 60 mins; Site: left forearm; 22:22 Follow up: IV Status: Completed infusion; Infusion discontinued; IV Intake: 100ml lf1 Signatures: Dispatcher [employer] EDEstefany Chandler RN RN [facility] Gely Ramirez RN RN lf1 Luis Alberto Orozco PA PA btw Sullivan, Jennifer, RN RN js13 Jaclyn Potter, Reg Reg ks16 The chart was reviewed and I authenticate all verbal orders and agree with the evaluation and treatment provided.Attachments: 17:28 [facility] Payment Agreement ks16 MTDD
--- NOTE | 2016-11-29 22:28 | EDDOCDS ---
Nurse's Notes [facility] Name: Phillip Molina Age: 61 yrs Sex: Male : 1955 Arrival Date: 11/29/2016 Time: 16:59 Bed I5 / M5 Private MD: Nicky Berry Diagnosis: Diverticulitis of large intestine without perforation or abscess without bleeding;Other cholelithiasis without obstruction Presentation: 11/29 17:03 Presenting complaint: Patient states: seen here last for gallbladder issues- aches srm pains and nausea. pt refused admission last night and has been in agony all day. heart burn bad. Adult Sepsis Screening: The patient does not have new or worsening altered mentation. Patient's respiratory rate is less than 22. Systolic blood pressure is greater than 100. Patient has a qSOFA score of 0- Negative Sepsis Screen. Suicide/Homicide risk assessment- the patient denies having any suicidal and/or homicidal ideations and does not present with any other emotional, behavioral or mental health complaints. Status: Patient is not a service associate or dependent. Transition of care: patient was not received from another setting of care. 17:03 Acuity: VARUN Level 3 srm 17:03 Method Of Arrival: Walkin/Carried/Asstd srm Triage Assessment: 17:04 General: Appears in no apparent distress, Behavior is appropriate for age, cooperative. srm Pain: Pain currently is 10 out of 10 on a pain scale. HIV screening NA for this visit Offered previously. GI: Reports upper abdominal pain, nausea, vomiting. Historical: - Allergies: no known allergies; - Home Meds: 1. Altace 10 mg Oral cap 2 caps once daily 2. Fish Oil Oral 3. omeprazole 40 mg Oral cpDR 1 cap once daily 4. Collins 5-325 mg Oral tab every 4-6 hours prn (Last dose: 11/29/2016 12:00) - PMHx: Diverticulitis; GERD; Cholecystitis; - PSHx: spleen repair; - Social history: Smoking status: Patient states was never smoker of tobacco. No barriers to communication noted, The patient speaks fluent Mexican, Speaks appropriately for age. - Family history: Not pertinent. - : The pt / caregiver states he / she is not on anticoagulants. Home medication list is obtained from the patient. - Exposure Risk Screening:: None identified. Screenin:43 Screening information is obtained from the patient. Fall risk: No risks identified. ml6 Assistance ADL's: requires no assistance with activities of daily living. Abuse/DV Screen: The patient / caregiver reports he/she is: not in a situation that causes fear, pain or injury. Nutritional screening: No deficits noted. Advance Directives: Currently, there is. Advance Directives: Currently, there is no health care proxy. home support is adequate. Assessment: 17:41 General: Appears in no apparent distress, Behavior is anxious, cooperative. Pain: ml6 Location: epigastric area Pain currently is 6 out of 10 on a pain scale. Pain does not radiate. Quality of pain is described as aching, Pain began 2-3 days ago Is continuous Alleviated by nothing. Aggravated by increased activity. Cardiovascular: No deficits noted. Capillary refill < 3 seconds is brisk in bilateral fingers toes Heart tones S1 S2 present Edema is absent. Pulses are all present. Respiratory: No deficits noted. Airway is patent Respiratory effort is even, unlabored, Respiratory pattern is regular, symmetrical. GI: Abdomen is flat, Bowel sounds present X 4 quads. Abd is soft and non tender X 4 quads. 19:10 Adult Sepsis Screening: The patient does not have new or worsening altered mentation. lf1 Patient's respiratory rate is less than 22. Systolic blood pressure is greater than 100. Patient has a qSOFA score of 0- Negative Sepsis Screen. General: Appears uncomfortable, Behavior is cooperative. Pain: Denies pain. Neurological: Level of Consciousness is awake, alert, obeys commands, Oriented to person, place, time. EENT: No deficits noted. Respiratory: Respiratory effort is even, unlabored. GI: Abdomen is obese, Bowel sounds present X 4 quads. Reports nausea. Derm: Skin is intact. 20:30 General: Appears comfortable, Behavior is cooperative. Pain: Denies pain. Neurological: lf1 Level of Consciousness is awake, alert. Respiratory: Respiratory effort is even, unlabored. GI: Reports nausea. 21:30 General: Appears in no apparent distress, comfortable, Behavior is cooperative. Pain: lf1 Denies pain. Neurological: Level of Consciousness is awake, alert. Respiratory: Respiratory effort is even, unlabored. GI: Denies nausea. Derm: Skin is normal. Injury Description: No known injury. 22:23 Adult Sepsis Screening: The patient does not have new or worsening altered mentation. lf1 Patient's respiratory rate is less than 22. Systolic blood pressure is greater than 100. Patient has a qSOFA score of 0- Negative Sepsis Screen. General: Appears in no apparent distress, comfortable, Behavior is cooperative. Pain: Denies pain. Neurological: Level of Consciousness is awake, alert. EENT: No deficits noted. Cardiovascular: Chest pain is denied. Respiratory: Respiratory effort is even, unlabored. GI: Denies nausea. Derm: Skin is normal. Vital Signs: 16:59 BP 153 / 107 RA Sitting (auto/lg); Pulse 83; Resp 16; Temp 99.0(O); Pulse Ox 99% on rs6 R/A; Weight 99.79 kg (R); Height 6 ft. 1 in. (185.42 cm) (R); Pain 10/10; 19:10 BP 174 / 90 RA Supine (/lg); Pulse 77; Resp 18; Temp 100.0(O); Pulse Ox 98% on R/A; lf1 Pain 0/10; 21:35 BP 154 / 86; Pulse 76; Resp 18; Temp 99.9; Pulse Ox 97% ; Pain 2/10; ajs 16:59 Body Mass Index 29.03 (99.79 kg, 185.42 cm) [facility] Vitals: 16:59 Log In Time: November 29, 2016 at 16:59. [facility] ED Course: 16:59 Patient visited by Carmita Macario PCA. rs6 16:59 Nicky Berry is Private Physician. rs6 16:59 Patient moved to Waiting rs6 17:01 Patient visited by Carmita Macario PCA. rs6 17:04 Triage Initiated srm 17:05 Patient moved to I4 / M4 srm 17:08 Luis Alberto Orozco PA is PHCP. btw 17:08 Kayleen Oviedo MD is Attending Physician. btw 17:09 Patient visited by Luis Alberto Orozco PA. btw 17:19 Patient moved to I5 / M5 jam1 17:28 [facility] Payment Agreement was scanned into [employer] and attached to record. ks16 17:41 Patient visited by Himanshu Gallardo RN. ml6 17:41 Inserted peripheral IV: 18gauge IV in left forearm and blood collected. Patient ml6 tolerated the procedure well. Labs drawn. (by ED staff). Sent per order to lab. 18:05 Patient visited by Himanshu Gallardo RN. ml6 18:07 The patient / caregiver is instructed regarding the plan of care and ED course. js13 18:07 No procedures done that require assistance. js13 18:35 Patient visited by Himanshu Gallardo RN. ml6 19:21 CT ABD & PELVIS: IV Contrast Only Returned. EDMS 19:30 Patient visited by Gely Ramirez RN. lf1 19:30 Door closed. Lights dimmed. lf1 21:29 Nicky Berry is Referral Physician. btw 21:35 Patient visited by Farhana Davies. ajs 22:23 Discontinued IV lock intact, bleeding controlled, pressure dressing applied, No lf1 redness/swelling at site. Administered Medications: 17:30 Drug: GI Cocktail - (Alum-Mag Hydroxide-Simeth Suspension 225 mg-200 mg-25 mg/5 mL 30 js13 ml, Lidocaine Liquid 2 % 10 ml, Hyoscyamine Liquid 10 ml) Route: PO; 17:39 Drug: Sucralfate 1 grams [sucralfate 1 gram tablet (1 tabs)] Route: PO; js13 19:25 Drug: diphenhydrAMINE 50 mg [diphenhydramine 50 mg/mL injection solution (1 mL)] Route: lf1 IVP; Site: left forearm; 19:26 Drug: Metoclopramide 20 mg [metoclopramide 5 mg/mL injection solution] Route: IV; Rate: lf1 80 mg/hr; Infused Over: 15 mins; Site: left forearm; 20:17 Follow up: IV Status: Completed infusion; IV Intake: 50ml lf1 19:44 Drug: Ciprofloxacin 500 mg [ciprofloxacin 500 mg tablet (1 tabs)] Route: PO; lf1 22:22 Follow up: Response: No Adverse Reaction lf1 20:17 Drug: metroNIDAZOLE 500 mg [metronidazole 500 mg/100 mL-sodium chloride(iso) lf1 intravenous piggyback] Route: IV; Rate: 100 mL/hr; Infused Over: 60 mins; Site: left forearm; 22:22 Follow up: IV Status: Completed infusion; Infusion discontinued; IV Intake: 100ml lf1 Intake: 20:17 IV: 50.00ml; Total: 50.00ml. lf1 22:22 IV: 100.00ml; Total: 150.00ml. lf1 Order Results: Lab Order: CBC with Diff; SPEC'M 11/29/16 17:28 Test: WHITE BLOOD COUNT; Value: 18.8; Range: 4.0-10.0; Abnormal: Above high normal; Units: K/mm3; Status: F Test: RED BLOOD COUNT; Value: 5.35; Range: 4.30-6.10; Units: M/mm3; Status: F Test: HEMOGLOBIN; Value: 16.2; Range: 14.0-18.0; Units: g/dl; Status: F Test: HEMATOCRIT; Value: 45.5; Range: 42.0-52.0; Units: %; Status: F Test: MEAN CORPUSCULAR VOLUME; Value: 85.1; Range: 80.0-96.0; Units: fl; Status: F Test: MEAN CORPUSCULAR HEMOGLOBIN; Value: 30.2; Range: 27.0-33.0; Units: pg; Status: F Test: MEAN CORPUSCULAR HGB CONC; Value: 35.5; Range: 32.0-36.5; Units: g/dl; Status: F Test: RED CELL DISTRIBUTION WIDTH; Value: 12.6; Range: 11.5-14.5; Units: %; Status: F Test: PLATELET COUNT, AUTOMATED; Value: 279; Range: 150-450; Units: k/mm3; Status: F Test: NEUTROPHILS %; Value: 90.3; Range: 36.0-66.0; Abnormal: Above high normal; Units: %; Status: F Test: LYMPH %; Value: 3.5; Range: 24.0-44.0; Abnormal: Below low normal; Units: %; Status: F Test: MONO %; Value: 5.3; Range: 0.0-5.0; Abnormal: Above high normal; Units: %; Status: F Test: EOS %; Value: 0.4; Range: 0.0-3.0; Units: %; Status: F Test: BASO %; Value: 0.1; Range: 0.0-1.0; Units: %; Status: F Test: LARGE UNSTAINED CELL %; Value: 0.5; Range: 0.0-4.0; Units: %; Status: F Test: NEUTROPHILS #; Value: 17.0; Range: 1.8-7.7; Abnormal: Above high normal; Units: K/mm3; Status: F Test: LYMPH #; Value: 0.8; Range: 1.5-4.5; Abnormal: Below low normal; Units: K/mm3; Status: F Test: MONO #; Value: 1.0; Range: 0.0-0.8; Abnormal: Above high normal; Units: K/mm3; Status: F Test: EOS #; Value: 0.1; Range: 0.0-0.50; Units: K/mm3; Status: F Test: BASO #; Value: 0.0; Range: 0.0-0.2; Units: K/mm3; Status: F Test: LARGE UNSTAINED CELL #; Value: 0.1; Range: 0.0-0.4; Units: K/mm3; Status: F Lab Order: Complete Comphrensive Metabolic; SPEC'M 11/29/16 17:28 Test: GLUCOSE, FASTING; Value: 150; Range: 80-110; Abnormal: Above high normal; Units: MG/DL; Status: F Test: BLOOD UREA NITROGEN; Value: 14; Range: 7-18; Units: MG/DL; Status: F Test: CREATININE FOR GFR; Value: 1.11; Range: 0.70-1.30; Units: MG/DL; Status: F Test: GLOMERULAR FILTRATION RATE; Value: > 60.0; Range: >49; Status: F Test: SODIUM LEVEL; Value: 139; Range: 136-145; Units: MEQ/L; Status: F Test: POTASSIUM SERUM; Value: 3.9; Range: 3.5-5.1; Units: MEQ/L; Status: F Test: CHLORIDE LEVEL; Value: 106; Range: 98-107; Units: MEQ/L; Status: F Test: CARBON DIOXIDE LEVEL; Value: 22; Range: 21-32; Units: MEQ/L; Status: F Test: ANION GAP; Value: 11; Range: 8-16; Units: MEQ/L; Status: F Test: CALCIUM LEVEL; Value: 8.9; Range: 8.8-10.2; Units: MG/DL; Status: F Test: AST/SGOT; Value: 14; Range: 15-37; Abnormal: Below low normal; Units: U/L; Status: F Test: ALT/SGPT; Value: 29; Range: 12-78; Units: U/L; Status: F Test: ALKALINE PHOSPHATASE; Value: 125; Range: 45-117; Abnormal: Above high normal; Units: U/L; Status: F Test: BILIRUBIN,TOTAL; Value: 1.1; Range: 0.2-1.0; Abnormal: Above high normal; Units: MG/DL; Status: F Test: TOTAL PROTEIN; Value: 7.3; Range: 6.4-8.2; Units: GM/DL; Status: F Test: ALBUMIN; Value: 3.4; Range: 3.2-5.2; Units: GM/DL; Status: F Test: ALBUMIN/GLOBULIN RATIO; Value: 0.87; Range: 1.00-1.93; Abnormal: Below low normal; Status: F Test Note: ; Units are mL/min/1.73 m2 Chronic Kidney Disease Staging per NKF: Stage I & II GFR >=60 Normal to Mildly Decreased Stage III GFR 30-59 Moderately Decreased Stage IV GFR 15-29 Severely Decreased Stage V GFR <15 Very Little GFR Left ESRD GFR <15 on [employer] Lab Order: Amylase; SPEC'M 11/29/16 17:28 Test: AMYLASE; Value: 34; Range: 25-115; Units: U/L; Status: F Lab Order: Lipase; SPEC'M 11/29/16 17:28 Test: LIPASE; Value: 69; Range: 73-393; Abnormal: Below low normal; Units: U/L; Status: F Radiology Order: CT ABD & PELVIS: IV Contrast Only Test: CT ABD & PELVIS: IV Contrast Only REASON FOR EXAMINATION: epigastric pain, WBC 18.8; ; CT of the abdomen and pelvis with contrast; Clinical statement: Pain.; Technique: Multiple axial CT images were obtained from the base of the lungs through the floor of the; pelvis utilizing 5 mm axial slices after administration of nonionic intravenous contrast. Coronal an; d sagittal reconstructions were also obtained.; No comparison is available.; Findings:; Chest: The visualized lung bases are clear. There is a small hiatal hernia.; Abdomen: The liver, spleen, pancreas, kidneys, and adrenal glands are unremarkable. There are bilater; al simple renal cysts appreciated. The gallbladder is distended. Several tiny gallstones are noted. T; he aorta is within normal limits. There is no evidence of abdominal lymphadenopathy or ascites.; Pelvis: There is focal bowel wall thickening in the sigmoid colon, with diffuse sigmoid diverticulosi; s appreciated. No evidence of perforation or abscess is appreciated at this time. There is no evidenc; e of bowel obstruction. The appendix is normal. The urinary bladder is within normal limits. The othe; r pelvic structures appear grossly intact. There is no evidence of pelvic lymphadenopathy or ascites.; ; Bones: There are no suspicious osseous abnormalities seen.; Impression:; 1. Acute sigmoid diverticulitis. No evidence of abscess or perforation. No bowel obstruction.; 2. Small hiatal hernia.; 3. Cholelithiasis without evidence of acute cholecystitis.; ; Outcome: 21:30 Discharge ordered by Provider. btw 22:23 Discharge Assessment: Patient awake, alert and oriented x 3. No cognitive and/or lf1 functional deficits noted. Patient verbalized understanding of disposition instructions. Patient awake and alert. Oriented to person, place and time. Patient verbalized understanding of disposition instructions. patient administered narcotics - no. The following High Risk Discharge criteria are identified: None. Discharged to home ambulatory, with family. Condition: improved. Discharge instructions given to patient, Instructed on discharge instructions, Demonstrated understanding of instructions, medications, Pt was receptive of discharge instructions/ teaching. Prescriptions given X 4. CT Study completed. Property :Personal belongings accompany Pt. 22:27 Patient left the ED. lf1 Signatures: Dispatcher [employer] EDMS Estefany Rivera, RN RN Geovanna Gilbert, BRACELET FORM COVERER BR[employer]M COVERER germain1 Gely RamirezRN RN lf1 Himanshu Gallardo, NINA RN ml6 Luis Alberto Orozco PA PA btw Farhana Davies Jennifer, RN RN js13 Carmita Macario, BRACELET FORM COVERER BRACE[employer]M COVERER rs6 Jaclyn Potter, Reg Reg ks16 MTDD
--- NOTE | 2016-12-01 23:28 | EDDOCDS ---
Physician Documentation [facility] Name: Phillip Molina Age: 61 yrs Sex: Male : 1955 Arrival Date: 11/29/2016 Time: 16:59 Bed I5 / M5 Private MD: Nicky Berry Disposition: 11/29/16 21:30 Discharged to Home/Self Care. Impression: Diverticulitis of large intestine without perforation or abscess without bleeding, Other cholelithiasis without obstruction. - Condition is Stable. - Discharge Instructions: Diverticulitis, [id number]. - Prescriptions for Cipro 500 mg Oral Tablet - take 1 tablet by ORAL route every 12 hours; 14 tablet. Flagyl 500 mg Oral Tablet - take 1 tablet by ORAL route every 8 hours for 10 days; 30 tablet. Reglan 10 mg Oral Tablet - take 1 tablet by ORAL route every 6 hours take 30 minutes before meals and at bedtime; 20 tablet. Medrol (Jamal) 4 mg Oral Tablets, Dose Pack - take 1 Pack by ORAL route as directed - follow package instructions; 1 packet. - Medication Reconciliation, Local Pharmacy Hours form. - Follow up: Nicky Berry; When: Call to arrange an appointment; Reason: Further diagnostic work-up, Recheck today's complaints, Continuance of care. - Problem is an ongoing problem. - Symptoms have improved. Historical: - Allergies: no known allergies; - Home Meds: 1. Altace 10 mg Oral cap 2 caps once daily 2. Fish Oil Oral 3. omeprazole 40 mg Oral cpDR 1 cap once daily 4. [place] 5-325 mg Oral tab every 4-6 hours prn (Last dose: 11/29/2016 12:00) - PMHx: Diverticulitis; GERD; Cholecystitis; - PSHx: spleen repair; - Social history: Smoking status: Patient states was never smoker of tobacco. No barriers to communication noted, The patient speaks fluent Romanian, Speaks appropriately for age. - Family history: Not pertinent. - : The pt / caregiver states he / she is not on anticoagulants. Home medication list is obtained from the patient. - Exposure Risk Screening:: None identified. Vital Signs: 11/29 16:59 BP 153 / 107 RA Sitting (auto/lg); Pulse 83; Resp 16; Temp 99.0(O); Pulse Ox 99% on rs6 R/A; Weight 99.79 kg / 220 lbs (R); Height 6 ft. 1 in. (185.42 cm) (R); Pain 10/10; 19:10 BP 174 / 90 RA Supine (/lg); Pulse 77; Resp 18; Temp 100.0(O); Pulse Ox 98% on R/A; lf1 Pain 0/10; 21:35 BP 154 / 86; Pulse 76; Resp 18; Temp 99.9; Pulse Ox 97% ; Pain 2/10; ajs 16:59 Body Mass Index 29.03 (99.79 kg, 185.42 cm) rs6 MDM: 17:24 GI Cocktail - (Alum-Mag Hydroxide-Simeth 30 ml, Lidocaine 10 ml, Hyoscyamine 10 ml) PO btw once; Pre-mixed 50mL unit dose ordered. 17:25 Sucralfate 1 grams PO once ordered. btw 17:25 CBC with Diff Ordered. EDMS 17:25 Complete Comphrensive Metabolic Ordered. EDMS 17:25 Amylase Ordered. EDMS 17:25 Lipase Ordered. EDMS 17:28 Financial registration complete. ks16 17:28 [facility] Payment Agreement was scanned into [employer] and attached to record. ks16 18:29 CBC with Diff Reviewed. btw 18:29 Complete Comphrensive Metabolic Reviewed. btw 18:29 Lipase Reviewed. btw 18:29 Amylase Reviewed. btw 18:30 IV Saline Lock ordered. btw 18:32 CT ABD & PELVIS: IV Contrast Only Ordered. EDMS 19:06 Metoclopramide 20 mg IV at 80 mg/hr once over 15 mins ordered. btw 19:06 diphenhydrAMINE 50 mg IVP once ordered. btw 19:30 Ciprofloxacin 500 mg PO once ordered. btw 19:30 metroNIDAZOLE 500 mg IV at 100 mL/hr once over 60 mins ordered. btw 02 11:33 T-Sheet-- Draft Copy was scanned into [employer] and attached to record. gb Administered Medications: 11/29 17:30 Drug: GI Cocktail - (Alum-Mag Hydroxide-Simeth Suspension 225 mg-200 mg-25 mg/5 mL 30 js13 ml, Lidocaine Liquid 2 % 10 ml, Hyoscyamine Liquid 10 ml) Route: PO; 17:39 Drug: Sucralfate 1 grams [sucralfate 1 gram tablet (1 tabs)] Route: PO; js13 19:25 Drug: diphenhydrAMINE 50 mg [diphenhydramine 50 mg/mL injection solution (1 mL)] Route: lf1 IVP; Site: left forearm; 19:26 Drug: Metoclopramide 20 mg [metoclopramide 5 mg/mL injection solution] Route: IV; Rate: lf1 80 mg/hr; Infused Over: 15 mins; Site: left forearm; 20:17 Follow up: IV Status: Completed infusion; IV Intake: 50ml lf1 19:44 Drug: Ciprofloxacin 500 mg [ciprofloxacin 500 mg tablet (1 tabs)] Route: PO; lf1 22:22 Follow up: Response: No Adverse Reaction lf1 20:17 Drug: metroNIDAZOLE 500 mg [metronidazole 500 mg/100 mL-sodium chloride(iso) lf1 intravenous piggyback] Route: IV; Rate: 100 mL/hr; Infused Over: 60 mins; Site: left forearm; 22:22 Follow up: IV Status: Completed infusion; Infusion discontinued; IV Intake: 100ml lf1 Signatures: Dispatcher [employer] EDEstefany Chandler, RN RN [facility] Nory Sweeney, Reg Reg gb Gely Ramirez RN RN lf1 Luis Alberto Orozco PA PA btw Sullivan, Jennifer, RN RN js13 Jaclyn Potter, Reg Reg ks16 The chart was reviewed and I authenticate all verbal orders and agree with the evaluation and treatment provided.Attachments: 17:28 [facility] Payment Agreement ks16 11/30 11:33 T-Sheet-- Draft Copy gb Chart Complete MTDD
--- NOTE | 2016-12-01 23:28 | EDDOCDS ---
Physician Documentation [facility] Name: Phillip Molina Age: 61 yrs Sex: Male : 1955 Arrival Date: 11/29/2016 Time: 16:59 Bed I5 / M5 Private MD: Nicky Berry Disposition: 11/29/16 21:30 Discharged to Home/Self Care. Impression: Diverticulitis of large intestine without perforation or abscess without bleeding, Other cholelithiasis without obstruction. - Condition is Stable. - Discharge Instructions: Diverticulitis, [id number]. - Prescriptions for Cipro 500 mg Oral Tablet - take 1 tablet by ORAL route every 12 hours; 14 tablet. Flagyl 500 mg Oral Tablet - take 1 tablet by ORAL route every 8 hours for 10 days; 30 tablet. Reglan 10 mg Oral Tablet - take 1 tablet by ORAL route every 6 hours take 30 minutes before meals and at bedtime; 20 tablet. Medrol (Jamal) 4 mg Oral Tablets, Dose Pack - take 1 Pack by ORAL route as directed - follow package instructions; 1 packet. - Medication Reconciliation, Local Pharmacy Hours form. - Follow up: Nicky Berry; When: Call to arrange an appointment; Reason: Further diagnostic work-up, Recheck today's complaints, Continuance of care. - Problem is an ongoing problem. - Symptoms have improved. Historical: - Allergies: no known allergies; - Home Meds: 1. Altace 10 mg Oral cap 2 caps once daily 2. Fish Oil Oral 3. omeprazole 40 mg Oral cpDR 1 cap once daily 4. [place] 5-325 mg Oral tab every 4-6 hours prn (Last dose: 11/29/2016 12:00) - PMHx: Diverticulitis; GERD; Cholecystitis; - PSHx: spleen repair; - Social history: Smoking status: Patient states was never smoker of tobacco. No barriers to communication noted, The patient speaks fluent Sami, Speaks appropriately for age. - Family history: Not pertinent. - : The pt / caregiver states he / she is not on anticoagulants. Home medication list is obtained from the patient. - Exposure Risk Screening:: None identified. Vital Signs: 11/29 16:59 BP 153 / 107 RA Sitting (auto/lg); Pulse 83; Resp 16; Temp 99.0(O); Pulse Ox 99% on rs6 R/A; Weight 99.79 kg / 220 lbs (R); Height 6 ft. 1 in. (185.42 cm) (R); Pain 10/10; 19:10 BP 174 / 90 RA Supine (/lg); Pulse 77; Resp 18; Temp 100.0(O); Pulse Ox 98% on R/A; lf1 Pain 0/10; 21:35 BP 154 / 86; Pulse 76; Resp 18; Temp 99.9; Pulse Ox 97% ; Pain 2/10; ajs 16:59 Body Mass Index 29.03 (99.79 kg, 185.42 cm) rs6 MDM: 17:24 GI Cocktail - (Alum-Mag Hydroxide-Simeth 30 ml, Lidocaine 10 ml, Hyoscyamine 10 ml) PO btw once; Pre-mixed 50mL unit dose ordered. 17:25 Sucralfate 1 grams PO once ordered. btw 17:25 CBC with Diff Ordered. EDMS 17:25 Complete Comphrensive Metabolic Ordered. EDMS 17:25 Amylase Ordered. EDMS 17:25 Lipase Ordered. EDMS 17:28 Financial registration complete. [email or web address] 17:28 [facility] Payment Agreement was scanned into [employer] and attached to record. ks16 18:29 CBC with Diff Reviewed. btw 18:29 Complete Comphrensive Metabolic Reviewed. btw 18:29 Lipase Reviewed. btw 18:29 Amylase Reviewed. btw 18:30 IV Saline Lock ordered. btw 18:32 CT ABD & PELVIS: IV Contrast Only Ordered. EDMS 19:06 Metoclopramide 20 mg IV at 80 mg/hr once over 15 mins ordered. btw 19:06 diphenhydrAMINE 50 mg IVP once ordered. btw 19:30 Ciprofloxacin 500 mg PO once ordered. btw 19:30 metroNIDAZOLE 500 mg IV at 100 mL/hr once over 60 mins ordered. btw 02 11:33 T-Sheet-- Draft Copy was scanned into [employer] and attached to record. gb Administered Medications: 11/29 17:30 Drug: GI Cocktail - (Alum-Mag Hydroxide-Simeth Suspension 225 mg-200 mg-25 mg/5 mL 30 js13 ml, Lidocaine Liquid 2 % 10 ml, Hyoscyamine Liquid 10 ml) Route: PO; 17:39 Drug: Sucralfate 1 grams [sucralfate 1 gram tablet (1 tabs)] Route: PO; js13 19:25 Drug: diphenhydrAMINE 50 mg [diphenhydramine 50 mg/mL injection solution (1 mL)] Route: lf1 IVP; Site: left forearm; 19:26 Drug: Metoclopramide 20 mg [metoclopramide 5 mg/mL injection solution] Route: IV; Rate: lf1 80 mg/hr; Infused Over: 15 mins; Site: left forearm; 20:17 Follow up: IV Status: Completed infusion; IV Intake: 50ml lf1 19:44 Drug: Ciprofloxacin 500 mg [ciprofloxacin 500 mg tablet (1 tabs)] Route: PO; lf1 22:22 Follow up: Response: No Adverse Reaction lf1 20:17 Drug: metroNIDAZOLE 500 mg [metronidazole 500 mg/100 mL-sodium chloride(iso) lf1 intravenous piggyback] Route: IV; Rate: 100 mL/hr; Infused Over: 60 mins; Site: left forearm; 22:22 Follow up: IV Status: Completed infusion; Infusion discontinued; IV Intake: 100ml lf1 Signatures: Dispatcher [employer] EDEstefany Chandler, RN RN [facility] oNry Sweeney, Reg Reg gb Gely Ramirez RN RN lf1 Luis Alberto Orozco PA PA btw Sullivan, Jennifer, RN RN js13 Jaclyn Potter, Reg Reg ks16 The chart was reviewed and I authenticate all verbal orders and agree with the evaluation and treatment provided.Attachments: 17:28 [facility] Payment Agreement [email or web address] 11/30 11:33 T-Sheet-- Draft Copy gb Chart Complete MTDD
--- NOTE | 2016-12-01 23:30 | EDDOCDS ---
Nurse's Notes [facility] Name: Phillip Molina Age: 61 yrs Sex: Male : 1955 Arrival Date: 11/29/2016 Time: 16:59 Bed I5 / M5 Private MD: Nicky Berry Diagnosis: Diverticulitis of large intestine without perforation or abscess without bleeding;Other cholelithiasis without obstruction Presentation: 11/29 17:03 Presenting complaint: Patient states: seen here last for gallbladder issues- aches srm pains and nausea. pt refused admission last night and has been in agony all day. heart burn bad. Adult Sepsis Screening: The patient does not have new or worsening altered mentation. Patient's respiratory rate is less than 22. Systolic blood pressure is greater than 100. Patient has a qSOFA score of 0- Negative Sepsis Screen. Suicide/Homicide risk assessment- the patient denies having any suicidal and/or homicidal ideations and does not present with any other emotional, behavioral or mental health complaints. 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 Transition of care: patient was not received from another setting of care. 17:03 Acuity: VARUN Level 3 srm 17:03 Method Of Arrival: Walkin/Carried/Asstd srm Triage Assessment: 17:04 General: Appears in no apparent distress, Behavior is appropriate for age, cooperative. srm Pain: Pain currently is 10 out of 10 on a pain scale. HIV screening NA for this visit Offered previously. GI: Reports upper abdominal pain, nausea, vomiting. Historical: - Allergies: no known allergies; - Home Meds: 1. Altace 10 mg Oral cap 2 caps once daily 2. Fish Oil Oral 3. omeprazole 40 mg Oral cpDR 1 cap once daily 4. [place] 5-325 mg Oral tab every 4-6 hours prn (Last dose: 11/29/2016 12:00) - PMHx: Diverticulitis; GERD; Cholecystitis; - PSHx: spleen repair; - Social history: Smoking status: Patient states was never smoker of tobacco. No barriers to communication noted, The patient speaks fluent Faroese, Speaks appropriately for age. - Family history: Not pertinent. - : The pt / caregiver states he / she is not on anticoagulants. Home medication list is obtained from the patient. - Exposure Risk Screening:: None identified. Screenin:43 Screening information is obtained from the patient. Fall risk: No risks identified. ml6 Assistance ADL's: requires no assistance with activities of daily living. Abuse/DV Screen: The patient / caregiver reports he/she is: not in a situation that causes fear, pain or injury. Nutritional screening: No deficits noted. Advance Directives: Currently, there is. Advance Directives: Currently, there is no health care proxy. home support is adequate. Assessment: 17:41 General: Appears in no apparent distress, Behavior is anxious, cooperative. Pain: ml6 Location: epigastric area Pain currently is 6 out of 10 on a pain scale. Pain does not radiate. Quality of pain is described as aching, Pain began 2-3 days ago Is continuous Alleviated by nothing. Aggravated by increased activity. Cardiovascular: No deficits noted. Capillary refill < 3 seconds is brisk in bilateral fingers toes Heart tones S1 S2 present Edema is absent. Pulses are all present. Respiratory: No deficits noted. Airway is patent Respiratory effort is even, unlabored, Respiratory pattern is regular, symmetrical. GI: Abdomen is flat, Bowel sounds present X 4 quads. Abd is soft and non tender X 4 quads. 19:10 Adult Sepsis Screening: The patient does not have new or worsening altered mentation. lf1 Patient's respiratory rate is less than 22. Systolic blood pressure is greater than 100. Patient has a qSOFA score of 0- Negative Sepsis Screen. General: Appears uncomfortable, Behavior is cooperative. Pain: Denies pain. Neurological: Level of Consciousness is awake, alert, obeys commands, Oriented to person, place, time. EENT: No deficits noted. Respiratory: Respiratory effort is even, unlabored. GI: Abdomen is obese, Bowel sounds present X 4 quads. Reports nausea. Derm: Skin is intact. 20:30 General: Appears comfortable, Behavior is cooperative. Pain: Denies pain. Neurological: lf1 Level of Consciousness is awake, alert. Respiratory: Respiratory effort is even, unlabored. GI: Reports nausea. 21:30 General: Appears in no apparent distress, comfortable, Behavior is cooperative. Pain: lf1 Denies pain. Neurological: Level of Consciousness is awake, alert. Respiratory: Respiratory effort is even, unlabored. GI: Denies nausea. Derm: Skin is normal. Injury Description: No known injury. 22:23 Adult Sepsis Screening: The patient does not have new or worsening altered mentation. lf1 Patient's respiratory rate is less than 22. Systolic blood pressure is greater than 100. Patient has a qSOFA score of 0- Negative Sepsis Screen. General: Appears in no apparent distress, comfortable, Behavior is cooperative. Pain: Denies pain. Neurological: Level of Consciousness is awake, alert. EENT: No deficits noted. Cardiovascular: Chest pain is denied. Respiratory: Respiratory effort is even, unlabored. GI: Denies nausea. Derm: Skin is normal. Vital Signs: 16:59 BP 153 / 107 RA Sitting (auto/lg); Pulse 83; Resp 16; Temp 99.0(O); Pulse Ox 99% on rs6 R/A; Weight 99.79 kg (R); Height 6 ft. 1 in. (185.42 cm) (R); Pain 10/10; 19:10 BP 174 / 90 RA Supine (/lg); Pulse 77; Resp 18; Temp 100.0(O); Pulse Ox 98% on R/A; lf1 Pain 0/10; 21:35 BP 154 / 86; Pulse 76; Resp 18; Temp 99.9; Pulse Ox 97% ; Pain 2/10; ajs 16:59 Body Mass Index 29.03 (99.79 kg, 185.42 cm) [facility] Vitals: 16:59 Log In Time: November 29, 2016 at 16:59. [facility] ED Course: 16:59 Patient visited by Carmita Macario PCA. rs6 16:59 Nicky Berry is Private Physician. rs6 16:59 Patient moved to Waiting rs6 17:01 Patient visited by Carmita Macario PCA. rs6 17:04 Triage Initiated srm 17:05 Patient moved to I4 / M4 srm 17:08 Luis Alberto Orozco PA is PHCP. btw 17:08 Kayleen Oviedo MD is Attending Physician. btw 17:09 Patient visited by Luis Alberto Orozco PA. btw 17:19 Patient moved to I5 / M5 jam1 17:28 [facility] Payment Agreement was scanned into [employer] and attached to record. ks16 17:41 Patient visited by Himanshu Gallardo RN. ml6 17:41 Inserted peripheral IV: 18gauge IV in left forearm and blood collected. Patient ml6 tolerated the procedure well. Labs drawn. (by ED staff). Sent per order to lab. 18:05 Patient visited by Himanshu Gallardo RN. ml6 18:07 The patient / caregiver is instructed regarding the plan of care and ED course. js13 18:07 No procedures done that require assistance. js13 18:35 Patient visited by Himanshu Gallardo RN. ml6 19:21 CT ABD & PELVIS: IV Contrast Only Returned. EDMS 19:30 Patient visited by Gely Ramirez RN. lf1 19:30 Door closed. Lights dimmed. lf1 21:29 Nicky Berry is Referral Physician. btw 21:35 Patient visited by Farhana Davies. ajs 22:23 Discontinued IV lock intact, bleeding controlled, pressure dressing applied, No lf1 redness/swelling at site. 11/30 11:33 T-Sheet-- Draft Copy was scanned into [employer] and attached to record. gb Administered Medications: 11/29 17:30 Drug: GI Cocktail - (Alum-Mag Hydroxide-Simeth Suspension 225 mg-200 mg-25 mg/5 mL 30 js13 ml, Lidocaine Liquid 2 % 10 ml, Hyoscyamine Liquid 10 ml) Route: PO; 17:39 Drug: Sucralfate 1 grams [sucralfate 1 gram tablet (1 tabs)] Route: PO; js13 19:25 Drug: diphenhydrAMINE 50 mg [diphenhydramine 50 mg/mL injection solution (1 mL)] Route: lf1 IVP; Site: left forearm; 19:26 Drug: Metoclopramide 20 mg [metoclopramide 5 mg/mL injection solution] Route: IV; Rate: lf1 80 mg/hr; Infused Over: 15 mins; Site: left forearm; 20:17 Follow up: IV Status: Completed infusion; IV Intake: 50ml lf1 19:44 Drug: Ciprofloxacin 500 mg [ciprofloxacin 500 mg tablet (1 tabs)] Route: PO; lf1 22:22 Follow up: Response: No Adverse Reaction lf1 20:17 Drug: metroNIDAZOLE 500 mg [metronidazole 500 mg/100 mL-sodium chloride(iso) lf1 intravenous piggyback] Route: IV; Rate: 100 mL/hr; Infused Over: 60 mins; Site: left forearm; 22:22 Follow up: IV Status: Completed infusion; Infusion discontinued; IV Intake: 100ml lf1 Intake: 20:17 IV: 50.00ml; Total: 50.00ml. lf1 22:22 IV: 100.00ml; Total: 150.00ml. lf1 Order Results: Lab Order: CBC with Diff; HANDY'Ozzy 11/29/16 17:28 Test: WHITE BLOOD COUNT; Value: 18.8; Range: 4.0-10.0; Abnormal: Above high normal; Units: K/mm3; Status: F Test: RED BLOOD COUNT; Value: 5.35; Range: 4.30-6.10; Units: M/mm3; Status: F Test: HEMOGLOBIN; Value: 16.2; Range: 14.0-18.0; Units: g/dl; Status: F Test: HEMATOCRIT; Value: 45.5; Range: 42.0-52.0; Units: %; Status: F Test: MEAN CORPUSCULAR VOLUME; Value: 85.1; Range: 80.0-96.0; Units: fl; Status: F Test: MEAN CORPUSCULAR HEMOGLOBIN; Value: 30.2; Range: 27.0-33.0; Units: pg; Status: F Test: MEAN CORPUSCULAR HGB CONC; Value: 35.5; Range: 32.0-36.5; Units: g/dl; Status: F Test: RED CELL DISTRIBUTION WIDTH; Value: 12.6; Range: 11.5-14.5; Units: %; Status: F Test: PLATELET COUNT, AUTOMATED; Value: 279; Range: 150-450; Units: k/mm3; Status: F Test: NEUTROPHILS %; Value: 90.3; Range: 36.0-66.0; Abnormal: Above high normal; Units: %; Status: F Test: LYMPH %; Value: 3.5; Range: 24.0-44.0; Abnormal: Below low normal; Units: %; Status: F Test: MONO %; Value: 5.3; Range: 0.0-5.0; Abnormal: Above high normal; Units: %; Status: F Test: EOS %; Value: 0.4; Range: 0.0-3.0; Units: %; Status: F Test: BASO %; Value: 0.1; Range: 0.0-1.0; Units: %; Status: F Test: LARGE UNSTAINED CELL %; Value: 0.5; Range: 0.0-4.0; Units: %; Status: F Test: NEUTROPHILS #; Value: 17.0; Range: 1.8-7.7; Abnormal: Above high normal; Units: K/mm3; Status: F Test: LYMPH #; Value: 0.8; Range: 1.5-4.5; Abnormal: Below low normal; Units: K/mm3; Status: F Test: MONO #; Value: 1.0; Range: 0.0-0.8; Abnormal: Above high normal; Units: K/mm3; Status: F Test: EOS #; Value: 0.1; Range: 0.0-0.50; Units: K/mm3; Status: F Test: BASO #; Value: 0.0; Range: 0.0-0.2; Units: K/mm3; Status: F Test: LARGE UNSTAINED CELL #; Value: 0.1; Range: 0.0-0.4; Units: K/mm3; Status: F Lab Order: Complete Comphrensive Metabolic; SPEC'M 11/29/16 17:28 Test: GLUCOSE, FASTING; Value: 150; Range: 80-110; Abnormal: Above high normal; Units: MG/DL; Status: F Test: BLOOD UREA NITROGEN; Value: 14; Range: 7-18; Units: MG/DL; Status: F Test: CREATININE FOR GFR; Value: 1.11; Range: 0.70-1.30; Units: MG/DL; Status: F Test: GLOMERULAR FILTRATION RATE; Value: > 60.0; Range: >49; Status: F Test: SODIUM LEVEL; Value: 139; Range: 136-145; Units: MEQ/L; Status: F Test: POTASSIUM SERUM; Value: 3.9; Range: 3.5-5.1; Units: MEQ/L; Status: F Test: CHLORIDE LEVEL; Value: 106; Range: 98-107; Units: MEQ/L; Status: F Test: CARBON DIOXIDE LEVEL; Value: 22; Range: 21-32; Units: MEQ/L; Status: F Test: ANION GAP; Value: 11; Range: 8-16; Units: MEQ/L; Status: F Test: CALCIUM LEVEL; Value: 8.9; Range: 8.8-10.2; Units: MG/DL; Status: F Test: AST/SGOT; Value: 14; Range: 15-37; Abnormal: Below low normal; Units: U/L; Status: F Test: ALT/SGPT; Value: 29; Range: 12-78; Units: U/L; Status: F Test: ALKALINE PHOSPHATASE; Value: 125; Range: 45-117; Abnormal: Above high normal; Units: U/L; Status: F Test: BILIRUBIN,TOTAL; Value: 1.1; Range: 0.2-1.0; Abnormal: Above high normal; Units: MG/DL; Status: F Test: TOTAL PROTEIN; Value: 7.3; Range: 6.4-8.2; Units: GM/DL; Status: F Test: ALBUMIN; Value: 3.4; Range: 3.2-5.2; Units: GM/DL; Status: F Test: ALBUMIN/GLOBULIN RATIO; Value: 0.87; Range: 1.00-1.93; Abnormal: Below low normal; Status: F Test Note: ; Units are mL/min/1.73 m2 Chronic Kidney Disease Staging per NKF: Stage I & II GFR >=60 Normal to Mildly Decreased Stage III GFR 30-59 Moderately Decreased Stage IV GFR 15-29 Severely Decreased Stage V GFR <15 Very Little GFR Left ESRD GFR <15 on MARRIAGE THERAPIST Lab Order: Amylase; SPEC'M 11/29/16 17:28 Test: AMYLASE; Value: 34; Range: 25-115; Units: U/L; Status: F Lab Order: Lipase; SPEC'M 11/29/16 17:28 Test: LIPASE; Value: 69; Range: 73-393; Abnormal: Below low normal; Units: U/L; Status: F Radiology Order: CT ABD & PELVIS: IV Contrast Only Test: CT ABD & PELVIS: IV Contrast Only REASON FOR EXAMINATION: epigastric pain, WBC 18.8; ; CT of the abdomen and pelvis with contrast; Clinical statement: Pain.; Technique: Multiple axial CT images were obtained from the base of the lungs through the floor of the; pelvis utilizing 5 mm axial slices after administration of nonionic intravenous contrast. Coronal an; d sagittal reconstructions were also obtained.; No comparison is available.; Findings:; Chest: The visualized lung bases are clear. There is a small hiatal hernia.; Abdomen: The liver, spleen, pancreas, kidneys, and adrenal glands are unremarkable. There are bilater; al simple renal cysts appreciated. The gallbladder is distended. Several tiny gallstones are noted. T; he aorta is within normal limits. There is no evidence of abdominal lymphadenopathy or ascites.; Pelvis: There is focal bowel wall thickening in the sigmoid colon, with diffuse sigmoid diverticulosi; s appreciated. No evidence of perforation or abscess is appreciated at this time. There is no evidenc; e of bowel obstruction. The appendix is normal. The urinary bladder is within normal limits. The othe; r pelvic structures appear grossly intact. There is no evidence of pelvic lymphadenopathy or ascites.; ; Bones: There are no suspicious osseous abnormalities seen.; Impression:; 1. Acute sigmoid diverticulitis. No evidence of abscess or perforation. No bowel obstruction.; 2. Small hiatal hernia.; 3. Cholelithiasis without evidence of acute cholecystitis.; ; Outcome: 21:30 Discharge ordered by Provider. btw 22:23 Discharge Assessment: Patient awake, alert and oriented x 3. No cognitive and/or lf1 functional deficits noted. Patient verbalized understanding of disposition instructions. Patient awake and alert. Oriented to person, place and time. Patient verbalized understanding of disposition instructions. patient administered narcotics - no. The following High Risk Discharge criteria are identified: None. Discharged to home ambulatory, with family. Condition: improved. Discharge instructions given to patient, Instructed on discharge instructions, Demonstrated understanding of instructions, medications, Pt was receptive of discharge instructions/ teaching. Prescriptions given X 4. CT Study completed. Property :Personal belongings accompany Pt. 22:27 Patient left the ED. lf1 Signatures: Dispatcher [employer] EDMS Estefany Rivera, RN RN Geovanna Gilbert, TMD TEACHER ASSISTANT TMD TEACHER ASSISTANT [id number] Nory Sweeney, Reg Reg gb Gely Ramirez RN RN lf1 Himanshu Gallardo RN RN ml6 Luis Alberto Orozco PA PA btw Farhana Davies JenniferRN RN js13 Macario, Carmita, TMD TEACHER ASSISTANT TMD TEACHER ASSISTANT rs6 Jaclyn Potter, Reg Reg [email or web address] Chart Complete MTDD
== END 2016-11-29 22:27 | disposition home or self-care (01) ==
LOC: M ED 16:59
DX: K57.32 Diverticulitis of large intestine without perforation or abscess without bleeding (principal); K21.9 Gastro-esophageal reflux disease without esophagitis; K81.9 Cholecystitis, unspecified; Z79.899 Other long term (current) drug therapy
CPT/HCPCS: 36415; 74177; 80053; 82150; 83690; 85025; 96365; 96366; 96367; 96375; 99284; J1200; J2765; Q9967

== ENCOUNTER 2018-03-13 19:30 | Emergency (ER) | payer OTHER ==
[2018-03-13] MEDS: MORPHINE 4 MG/ML 1ML VIAL/SYRINGE (J2270) IV (20:35)
[2018-03-13] MEDS: ONDANSETRON 4MG/2ML VIAL (J2405) IV (20:35)
[2018-03-13] MEDS: NS 1,000 ML IV (20:35)
[2018-03-13 20:43] LABS: BASO % 0.3 % (0.0-1.0); EOS % 0.2 % (0.0-3.0); HEMATOCRIT 45.2 % (42.0-52.0); IMMATURE GRANULOCYTE % 0.3 % (0-3.0); LYMPH # 0.6 10^3/uL (1.5-4.5); LYMPH % 5.5 % (24.0-44.0); MEAN CORPUSCULAR HGB CONC 35.4 g/dl (32.0-36.5); MEAN CORPUSCULAR VOLUME 84.6 fl (80.0-96.0); MONO # 0.9 10^3/uL (0.0-0.8); MONO % 7.9 % (0.0-5.0); NEUTROPHILS # 10.1 10^3/uL (1.8-7.7); NEUTROPHILS % 85.8 % (36.0-66.0); PLATELET COUNT, AUTOMATED 262 10^3/uL (150-450); RED BLOOD COUNT 5.34 10^6/uL (4.30-6.10); RED CELL DISTRIBUTION WIDTH 12.4 % (11.5-14.5); WHITE BLOOD COUNT 11.7 10^3/uL (4.0-10.0)
[2018-03-13 21:13] LABS: ALBUMIN 3.5 GM/DL (3.2-5.2); ALKALINE PHOSPHATASE 217 U/L (45-117); ALT/SGPT 320 U/L (12-78); AMYLASE 47 U/L (25-115); ANION GAP 9 MEQ/L (8-16); AST/SGOT 478 U/L (7-37); BILIRUBIN,DIRECT 1.5 MG/DL (0.0-0.2); BILIRUBIN,TOTAL 2.8 MG/DL (0.2-1.0); BLOOD UREA NITROGEN 13 MG/DL (7-18); CARBON DIOXIDE LEVEL 23 MEQ/L (21-32); CHLORIDE LEVEL 107 MEQ/L (98-107); CK-MB VALUE MASS < 1.0 NG/ML (<3.6); CPK CREATINE PHOSPHOKINASE 66 U/L (39-308); CREATININE FOR GFR 1.11 MG/DL (0.70-1.30); GLOMERULAR FILTRATION RATE > 60.0 (>49); GLUCOSE, FASTING 119 MG/DL (70-100); LIPASE 184 U/L (73-393); MB/CK RELATIVE INDEX 1.51 (< OR =4); POTASSIUM SERUM 3.9 MEQ/L (3.5-5.1); SODIUM LEVEL 139 MEQ/L (136-145); TOTAL PROTEIN 7.9 GM/DL (6.4-8.2); TROPONIN I < 0.02 NG/ML (< 0.10)
[2018-03-13] MEDS: IBUPROFEN 800 MG TAB PO (23:20)
[2018-03-14 09:53] LABS: HEPATITIS B SURFACE ANTIGEN NEGATIVE (NEGATIVE)
[2018-03-14 10:21] LABS: HEPATITIS C VIRUS ABY INDEX < 0.0 INDEX (<0.8)
[2018-03-14 10:21] LABS: HEPATITIS B CORE ANTIBODY IGM NEGATIVE (NEGATIVE)
[2018-03-14 10:24] LABS: HEPATITIS A ANTIBODY IGM NEGATIVE (NEGATIVE)
== END 2018-03-13 23:28 | disposition home or self-care (01) ==
LOC: M ED 19:30
DX: K80.50 Calculus of bile duct without cholangitis or cholecystitis without obstruction (principal); B17.9 Acute viral hepatitis, unspecified; N28.1 Cyst of kidney, acquired; I10 Essential (primary) hypertension; K21.9 Gastro-esophageal reflux disease without esophagitis; K57.92 Diverticulitis of intestine, part unspecified, without perforation or abscess without bleeding
CPT/HCPCS: J2270

== ENCOUNTER → 2018-03-16 | Outpatient (CLI) | payer OTHER ==
[2018-03-16 18:08] LABS: ALBUMIN 3.2 GM/DL (3.2-5.2); ALKALINE PHOSPHATASE 210 U/L (45-117); ALT/SGPT 148 U/L (12-78); ANION GAP 5 MEQ/L (8-16); AST/SGOT 47 U/L (7-37); BILIRUBIN,TOTAL 2.3 MG/DL (0.2-1.0); BLOOD UREA NITROGEN 16 MG/DL (7-18); CALCIUM LEVEL 8.9 MG/DL (8.8-10.2); CARBON DIOXIDE LEVEL 27 MEQ/L (21-32); CHLORIDE LEVEL 108 MEQ/L (98-107); CREATININE FOR GFR 1.11 MG/DL (0.70-1.30); GLOMERULAR FILTRATION RATE > 60.0 (>49); GLUCOSE, FASTING 88 MG/DL (70-100); POTASSIUM SERUM 4.3 MEQ/L (3.5-5.1); SODIUM LEVEL 140 MEQ/L (136-145); TOTAL PROTEIN 7.2 GM/DL (6.4-8.2)
== END ==
LOC: M LAB 16:33
DX: K80.00 Calculus of gallbladder with acute cholecystitis without obstruction (principal); R74.8 Abnormal levels of other serum enzymes
CPT/HCPCS: 80053

== ENCOUNTER 2018-06-10 00:41 | Emergency (ER) | payer OTHER, MEDICARE ==
[2018-06-10 01:43] LABS: BASO # 0.1 10^3/uL (0.0-0.2); BASO % 0.3 % (0.0-1.0); EOS # 0.1 10^3/uL (0.0-0.50); EOS % 0.3 % (0.0-3.0); HEMATOCRIT 41.7 % (42.0-52.0); HEMOGLOBIN 14.9 g/dl (13.5-17.5); IMMATURE GRANULOCYTE % 0.7 % (0-3.0); LYMPH # 1.1 10^3/uL (1.5-4.5); LYMPH % 7.9 % (24.0-44.0); MEAN CORPUSCULAR HEMOGLOBIN 29.9 pg (27.0-33.0); MEAN CORPUSCULAR HGB CONC 35.7 g/dl (32.0-36.5); MEAN CORPUSCULAR VOLUME 83.6 fl (80.0-96.0); MONO # 0.6 10^3/uL (0.0-0.8); MONO % 4.3 % (0.0-5.0); NEUTROPHILS # 12.4 10^3/uL (1.8-7.7); NEUTROPHILS % 86.5 % (36.0-66.0); PLATELET COUNT, AUTOMATED 331 10^3/uL (150-450); RED BLOOD COUNT 4.99 10^6/uL (4.30-6.10); RED CELL DISTRIBUTION WIDTH 12.4 % (11.5-14.5); WHITE BLOOD COUNT 14.3 10^3/uL (4.0-10.0)
[2018-06-10] MEDS: ONDANSETRON 4MG/2ML VIAL (J2405) IV (01:49)
[2018-06-10] MEDS: NS 1,000 ML IV (01:49)
[2018-06-10] MEDS: MORPHINE 4 MG/ML 1ML VIAL/SYRINGE (J2270) IV (01:50)
[2018-06-10 02:01] LABS: ALBUMIN 3.4 GM/DL (3.2-5.2); ALBUMIN/GLOBULIN RATIO 0.85 (1.00-1.93); ALKALINE PHOSPHATASE 113 U/L (45-117); ALT/SGPT 17 U/L (12-78); ANION GAP 9 MEQ/L (8-16); AST/SGOT 13 U/L (7-37); BILIRUBIN,DIRECT 0.2 MG/DL (0.0-0.2); BILIRUBIN,TOTAL 0.7 MG/DL (0.2-1.0); BLOOD UREA NITROGEN 16 MG/DL (7-18); CALCIUM LEVEL 9.1 MG/DL (8.8-10.2); CARBON DIOXIDE LEVEL 22 MEQ/L (21-32); CHLORIDE LEVEL 110 MEQ/L (98-107); GLOMERULAR FILTRATION RATE > 60.0 (>49); GLUCOSE, FASTING 134 MG/DL (70-100); LIPASE 104 U/L (73-393); POTASSIUM SERUM 3.9 MEQ/L (3.5-5.1); SODIUM LEVEL 141 MEQ/L (136-145); TOTAL PROTEIN 7.4 GM/DL (6.4-8.2)
[2018-06-10] MEDS: PIPERACILLIN/TAZOBACTAM SOD 3.375 GM in D5W MINI-BAG PLUS 50 ML IV (05:01)
== END 2018-06-10 06:08 | disposition home or self-care (01) ==
LOC: M ED 00:41
DX: K80.70 Calculus of gallbladder and bile duct without cholecystitis without obstruction (principal); R11.2 Nausea with vomiting, unspecified; Z87.19 Personal history of other diseases of the digestive system; Z79.899 Other long term (current) drug therapy
CPT/HCPCS: J2270

== ENCOUNTER 2018-06-10 06:13 | Day surgery (SDC) | payer OTHER, MEDICARE ==
[2018-06-10] MEDS ORDERED: dexameTHASONE 4 MG/ML 1ML VIAL (J1100) As Ordered (06:15)
[2018-06-10] MEDS ORDERED: LIDOCAINE 2% INJ 100 MG/5 ML SDV (FOR ANES.) As Ordered (06:15)
[2018-06-10] MEDS ORDERED: ROCURONIUM BROMIDE 50 MG/5 ML VIAL As Ordered ×2 (06:15→08:20)
[2018-06-10] MEDS ORDERED: PROPOFOL 200 MG/20 ML VIAL As Ordered (06:15)
[2018-06-10] MEDS ORDERED: ONDANSETRON 4MG/2ML VIAL (J2405) As Ordered (06:15)
[2018-06-10] MEDS ORDERED: KETOROLAC 60 MG/2 ML VIAL (J1885) As Ordered (06:15)
[2018-06-10] MEDS ORDERED: fentaNYL 250 MCG/5 ML INJECTION (J3010) As Ordered (06:16)
[2018-06-10] MEDS ORDERED: MIDAZOLAM INJ 2 MG/2 ML VIAL (J2250) As Ordered (06:16)
[2018-06-10] MEDS: LR 1,000 ML IV (06:50)
[2018-06-10] MEDS ORDERED: PHENYLephrine HCL 500 MCG/5 ML (100MCG/ML) SYRINGE (J2370) As Ordered (07:52)
[2018-06-10] MEDS ORDERED: SUGAMMADEX SODIUM 500 MG/5 ML VIAL (BRIDION) As Ordered (09:07)
[2018-06-10] MEDS: BUPIVACAINE HCL 0.25% 30 ML VIAL As Ordered (09:27)
[2018-06-10] MEDS ORDERED: NORCO, ANEXSIA 5/325MG TABLET (HYDROcodone/ACETAMINOPHEN) PO (10:00)
[2018-06-10] MEDS ORDERED: METOCLOPRAMIDE INJ 10MG/2ML VIAL (J2765) IV (10:00)
[2018-06-10] MEDS ORDERED: ACETAMINOPHEN TAB 650MG DOSE (2X325MG) PO (10:00)
[2018-06-10] MEDS ORDERED: PERCOCET 5MG/325MG TAB PO (10:00)
[2018-06-10] MEDS ORDERED: ONDANSETRON 4MG/2ML VIAL (J2405) IV (10:00)
[2018-06-10] MEDS ORDERED: fentaNYL 100 MCG/2 ML INJECTION (J3010) IV (10:00)
[2018-06-10] MEDS ORDERED: LR 1,000 ML IV (10:00)
[2018-06-10] MEDS ORDERED: IBUPROFEN 600 MG TAB PO (12:00)
== END 2018-06-10 11:50 | disposition home or self-care (01) ==
LOC: M SDC 11:50
DX: K80.18 Calculus of gallbladder with other cholecystitis without obstruction (principal); K66.0 Peritoneal adhesions (postprocedural) (postinfection); I10 Essential (primary) hypertension; K21.9 Gastro-esophageal reflux disease without esophagitis; Z79.899 Other long term (current) drug therapy
CPT/HCPCS: 47562

== ENCOUNTER 2018-07-04 17:21 | Inpatient (IN) | payer OTHER, MEDICARE ==
[2018-07-04] MEDS: ACETAMINOPHEN TAB 650MG DOSE (2X325MG) PO (18:00)
[2018-07-04] MEDS: NS 1,000 ML IV ×3 (18:13→23:00)
[2018-07-04] MEDS: ONDANSETRON 4MG/2ML VIAL (J2405) IV (18:13)
[2018-07-04 18:24] LABS: BASO % 0.2 % (0.0-1.0); EOS % 0.2 % (0.0-3.0); HEMATOCRIT 44.7 % (42.0-52.0); HEMOGLOBIN 15.3 g/dl (13.5-17.5); IMMATURE GRANULOCYTE % 1.1 % (0-3.0); LYMPH # 0.3 10^3/uL (1.5-4.5); LYMPH % 2.7 % (24.0-44.0); MEAN CORPUSCULAR HEMOGLOBIN 29.6 pg (27.0-33.0); MEAN CORPUSCULAR HGB CONC 34.2 g/dl (32.0-36.5); MEAN CORPUSCULAR VOLUME 86.5 fl (80.0-96.0); MONO # 0.1 10^3/uL (0.0-0.8); MONO % 0.6 % (0.0-5.0); NEUTROPHILS # 11.9 10^3/uL (1.8-7.7); NEUTROPHILS % 95.2 % (36.0-66.0); PLATELET COUNT, AUTOMATED 352 10^3/uL (150-450); RED BLOOD COUNT 5.17 10^6/uL (4.30-6.10); RED CELL DISTRIBUTION WIDTH 12.9 % (11.5-14.5); WHITE BLOOD COUNT 12.5 10^3/uL (4.0-10.0)
[2018-07-04 19:00] LABS: ALBUMIN 3.4 GM/DL (3.2-5.2); ALKALINE PHOSPHATASE 125 U/L (45-117); ALT/SGPT 19 U/L (12-78); AMYLASE 36 U/L (25-115); ANION GAP 13 MEQ/L (8-16); AST/SGOT 13 U/L (7-37); BILIRUBIN,DIRECT 0.5 MG/DL (0.0-0.2); BILIRUBIN,TOTAL 1.4 MG/DL (0.2-1.0); BLOOD UREA NITROGEN 16 MG/DL (7-18); CALCIUM LEVEL 9.1 MG/DL (8.8-10.2); CARBON DIOXIDE LEVEL 21 MEQ/L (21-32); CHLORIDE LEVEL 106 MEQ/L (98-107); CREATININE FOR GFR 1.83 MG/DL (0.70-1.30); GLOMERULAR FILTRATION RATE 39.7 (>49); LIPASE 101 U/L (73-393); POTASSIUM SERUM 3.4 MEQ/L (3.5-5.1); SODIUM LEVEL 140 MEQ/L (136-145); TOTAL PROTEIN 8.3 GM/DL (6.4-8.2)
[2018-07-04 19:02] LABS: LACTIC ACID SEPSIS PROTOCOL 3.2 MMOL/L (0.4-2.0)
[2018-07-04 20:27] LABS: GLUCOSE, FASTING 139 MG/DL (70-100)
[2018-07-04 20:29] LABS: ALBUMIN/GLOBULIN RATIO 0.69 (1.00-1.93)
[2018-07-04] MEDS: PIPERACILLIN/TAZOBACTAM SOD 3.375 GM in D5W MINI-BAG PLUS 50 ML IV (21:20)
[2018-07-04] MEDS ORDERED: ONDANSETRON 4MG/2ML VIAL (J2405) IV (22:00)
[2018-07-05] MEDS: POTASSIUM CHLORIDE 10% LIQ 20 MEQ/15 ML UDC PO (00:14)
[2018-07-05] MEDS: NS 250 ML IV (03:28)
[2018-07-05] MEDS: NS 1,000 ML IV ×3 (03:30→15:23)
[2018-07-05] MEDS: PIPERACILLIN/TAZOBACTAM SOD 3.375 GM in D5W MINI-BAG PLUS 50 ML IV ×5 (03:41→22:21)
[2018-07-05 06:16] LABS: BASO % 0.1 % (0.0-1.0); HEMATOCRIT 35.9 % (42.0-52.0); IMMATURE GRANULOCYTE % 0.9 % (0-3.0); LYMPH # 0.5 10^3/uL (1.5-4.5); LYMPH % 2.4 % (24.0-44.0); MEAN CORPUSCULAR HEMOGLOBIN 29.1 pg (27.0-33.0); MEAN CORPUSCULAR HGB CONC 33.1 g/dl (32.0-36.5); MEAN CORPUSCULAR VOLUME 87.8 fl (80.0-96.0); MONO # 0.9 10^3/uL (0.0-0.8); MONO % 4.7 % (0.0-5.0); NEUTROPHILS # 18.1 10^3/uL (1.8-7.7); NEUTROPHILS % 91.9 % (36.0-66.0); PLATELET COUNT, AUTOMATED 258 10^3/uL (150-450); RED BLOOD COUNT 4.09 10^6/uL (4.30-6.10); RED CELL DISTRIBUTION WIDTH 13.2 % (11.5-14.5); WHITE BLOOD COUNT 19.7 10^3/uL (4.0-10.0)
[2018-07-05 06:27] LABS: HEMOGLOBIN 11.9 g/dl (13.5-17.5)
[2018-07-05 06:35] LABS: LACTIC ACID SEPSIS PROTOCOL 1.4 MMOL/L (0.4-2.0)
[2018-07-05 08:07] LABS: ALBUMIN 2.6 GM/DL (3.2-5.2); ALKALINE PHOSPHATASE 82 U/L (45-117); ALT/SGPT 16 U/L (12-78); ANION GAP 7 MEQ/L (8-16); AST/SGOT 16 U/L (7-37); BILIRUBIN,TOTAL 1.1 MG/DL (0.2-1.0); BLOOD UREA NITROGEN 18 MG/DL (7-18); CALCIUM LEVEL 7.8 MG/DL (8.8-10.2); CARBON DIOXIDE LEVEL 22 MEQ/L (21-32); CHLORIDE LEVEL 112 MEQ/L (98-107); CREATININE FOR GFR 1.55 MG/DL (0.70-1.30); GLOMERULAR FILTRATION RATE 48.1 (>49); GLUCOSE, FASTING 150 MG/DL (70-100); MAGNESIUM LEVEL 1.9 MG/DL (1.8-2.4); SODIUM LEVEL 141 MEQ/L (136-145); TOTAL PROTEIN 6.1 GM/DL (6.4-8.2)
[2018-07-05] MEDS: PANTOPRAZOLE 40MG TAB (PROTONIX) PO (08:34)
[2018-07-05 09:58] LABS: ALBUMIN/GLOBULIN RATIO 1.35 (1.00-1.93)
[2018-07-05] MEDS: ACETAMINOPHEN TAB 650MG DOSE (2X325MG) PO (10:09)
[2018-07-06 07:02] LABS: BASO % 0.3 % (0.0-1.0); EOS # 0.2 10^3/uL (0.0-0.50); HEMATOCRIT 32.6 % (42.0-52.0); HEMOGLOBIN 11.1 g/dl (13.5-17.5); IMMATURE GRANULOCYTE % 0.7 % (0-3.0); LYMPH # 0.9 10^3/uL (1.5-4.5); LYMPH % 8.5 % (24.0-44.0); MEAN CORPUSCULAR HEMOGLOBIN 29.4 pg (27.0-33.0); MEAN CORPUSCULAR VOLUME 86.5 fl (80.0-96.0); MONO # 0.8 10^3/uL (0.0-0.8); MONO % 7.8 % (0.0-5.0); NEUTROPHILS # 8.4 10^3/uL (1.8-7.7); NEUTROPHILS % 80.7 % (36.0-66.0); PLATELET COUNT, AUTOMATED 192 10^3/uL (150-450); RED BLOOD COUNT 3.77 10^6/uL (4.30-6.10); RED CELL DISTRIBUTION WIDTH 13.4 % (11.5-14.5); WHITE BLOOD COUNT 10.4 10^3/uL (4.0-10.0)
[2018-07-06 07:26] LABS: ALBUMIN 2.3 GM/DL (3.2-5.2); ALBUMIN/GLOBULIN RATIO 0.74 (1.00-1.93); ALKALINE PHOSPHATASE 66 U/L (45-117); ALT/SGPT 14 U/L (12-78); ANION GAP 7 MEQ/L (8-16); AST/SGOT 11 U/L (7-37); BLOOD UREA NITROGEN 15 MG/DL (7-18); CARBON DIOXIDE LEVEL 22 MEQ/L (21-32); CHLORIDE LEVEL 113 MEQ/L (98-107); CREATININE FOR GFR 1.11 MG/DL (0.70-1.30); GLOMERULAR FILTRATION RATE > 60.0 (>49); GLUCOSE, FASTING 93 MG/DL (70-100); POTASSIUM SERUM 3.6 MEQ/L (3.5-5.1); SODIUM LEVEL 142 MEQ/L (136-145); TOTAL PROTEIN 5.4 GM/DL (6.4-8.2)
[2018-07-06] MEDS: PANTOPRAZOLE 40MG TAB (PROTONIX) PO (09:22)
[2018-07-06] MEDS: PIPERACILLIN/TAZOBACTAM SOD 3.375 GM in D5W MINI-BAG PLUS 50 ML IV ×3 (09:23→21:12)
[2018-07-06] MEDS: NS 1,000 ML IV ×2 (09:23→12:50)
[2018-07-07] MEDS: PIPERACILLIN/TAZOBACTAM SOD 3.375 GM in D5W MINI-BAG PLUS 50 ML IV ×4 (04:11→21:36)
[2018-07-07 06:34] LABS: BASO % 0.4 % (0.0-1.0); EOS # 0.2 10^3/uL (0.0-0.50); EOS % 2.4 % (0.0-3.0); HEMATOCRIT 35.1 % (42.0-52.0); HEMOGLOBIN 11.9 g/dl (13.5-17.5); IMMATURE GRANULOCYTE % 1.3 % (0-3.0); LYMPH # 1.2 10^3/uL (1.5-4.5); LYMPH % 15.8 % (24.0-44.0); MEAN CORPUSCULAR HEMOGLOBIN 29.2 pg (27.0-33.0); MEAN CORPUSCULAR HGB CONC 33.9 g/dl (32.0-36.5); MEAN CORPUSCULAR VOLUME 86.2 fl (80.0-96.0); MONO # 0.6 10^3/uL (0.0-0.8); MONO % 7.6 % (0.0-5.0); NEUTROPHILS # 5.5 10^3/uL (1.8-7.7); NEUTROPHILS % 72.5 % (36.0-66.0); PLATELET COUNT, AUTOMATED 210 10^3/uL (150-450); RED BLOOD COUNT 4.07 10^6/uL (4.30-6.10); RED CELL DISTRIBUTION WIDTH 12.9 % (11.5-14.5); WHITE BLOOD COUNT 7.5 10^3/uL (4.0-10.0)
[2018-07-07 07:08] LABS: ALBUMIN 2.4 GM/DL (3.2-5.2); ALBUMIN/GLOBULIN RATIO 0.62 (1.00-1.93); ALKALINE PHOSPHATASE 66 U/L (45-117); ALT/SGPT 13 U/L (12-78); ANION GAP 8 MEQ/L (8-16); AST/SGOT 9 U/L (7-37); BILIRUBIN,TOTAL 0.9 MG/DL (0.2-1.0); BLOOD UREA NITROGEN 12 MG/DL (7-18); CALCIUM LEVEL 8.1 MG/DL (8.8-10.2); CARBON DIOXIDE LEVEL 23 MEQ/L (21-32); CHLORIDE LEVEL 110 MEQ/L (98-107); CREATININE FOR GFR 1.12 MG/DL (0.70-1.30); GLOMERULAR FILTRATION RATE > 60.0 (>49); GLUCOSE, FASTING 77 MG/DL (70-100); POTASSIUM SERUM 3.9 MEQ/L (3.5-5.1); SODIUM LEVEL 141 MEQ/L (136-145); TOTAL PROTEIN 6.3 GM/DL (6.4-8.2)
[2018-07-07] MEDS: PANTOPRAZOLE 40MG TAB (PROTONIX) PO (09:15)
[2018-07-08] MEDS: PIPERACILLIN/TAZOBACTAM SOD 3.375 GM in D5W MINI-BAG PLUS 50 ML IV ×2 (03:46→09:19)
[2018-07-08 06:58] LABS: BASO % 0.6 % (0.0-1.0); EOS # 0.1 10^3/uL (0.0-0.50); EOS % 2.1 % (0.0-3.0); HEMATOCRIT 37.9 % (42.0-52.0); IMMATURE GRANULOCYTE % 2.8 % (0-3.0); LYMPH # 1.5 10^3/uL (1.5-4.5); MEAN CORPUSCULAR HEMOGLOBIN 29.2 pg (27.0-33.0); MEAN CORPUSCULAR HGB CONC 34.3 g/dl (32.0-36.5); MEAN CORPUSCULAR VOLUME 85.2 fl (80.0-96.0); MONO # 0.5 10^3/uL (0.0-0.8); MONO % 7.2 % (0.0-5.0); NEUTROPHILS # 4.4 10^3/uL (1.8-7.7); NEUTROPHILS % 65.3 % (36.0-66.0); PLATELET COUNT, AUTOMATED 230 10^3/uL (150-450); RED BLOOD COUNT 4.45 10^6/uL (4.30-6.10); RED CELL DISTRIBUTION WIDTH 12.5 % (11.5-14.5); WHITE BLOOD COUNT 6.7 10^3/uL (4.0-10.0)
[2018-07-08 07:20] LABS: ALBUMIN 2.6 GM/DL (3.2-5.2); ALBUMIN/GLOBULIN RATIO 0.63 (1.00-1.93); ALKALINE PHOSPHATASE 74 U/L (45-117); ALT/SGPT 13 U/L (12-78); ANION GAP 8 MEQ/L (8-16); AST/SGOT 6 U/L (7-37); BILIRUBIN,TOTAL 0.9 MG/DL (0.2-1.0); BLOOD UREA NITROGEN 9 MG/DL (7-18); C REACTIVE PROTEIN QUANTITATIV 3.89 MG/DL (0.00-0.30); CALCIUM LEVEL 8.5 MG/DL (8.8-10.2); CARBON DIOXIDE LEVEL 22 MEQ/L (21-32); CHLORIDE LEVEL 109 MEQ/L (98-107); CREATININE FOR GFR 1.01 MG/DL (0.70-1.30); GLOMERULAR FILTRATION RATE > 60.0 (>49); GLUCOSE, FASTING 84 MG/DL (70-100); POTASSIUM SERUM 3.5 MEQ/L (3.5-5.1); SODIUM LEVEL 139 MEQ/L (136-145); TOTAL PROTEIN 6.7 GM/DL (6.4-8.2)
[2018-07-08] MEDS: PANTOPRAZOLE 40MG TAB (PROTONIX) PO (09:19)
== END 2018-07-08 10:46 | disposition home or self-care (01) | DRG 872 ==
LOC: M MSPAV 07-05 00:36 → M ED 17:21 → M ED INP 21:53
DX: A41.9 Sepsis, unspecified organism (principal); N39.0 Urinary tract infection, site not specified; K21.9 Gastro-esophageal reflux disease without esophagitis; I10 Essential (primary) hypertension; R11.2 Nausea with vomiting, unspecified; B96.20 Unspecified Escherichia coli [E. coli] as the cause of diseases classified elsewhere; E78.5 Hyperlipidemia, unspecified; Z87.440 Personal history of urinary (tract) infections; Z90.49 Acquired absence of other specified parts of digestive tract; Z79.899 Other long term (current) drug therapy

== ENCOUNTER → 2018-12-15 | Outpatient (REF) | payer OTHER, MEDICARE ==
[~2018-12-15] MED LIST: ALTA1CAP4 PO; BACITAB PO; FISH100049 PO; LEVA750T7 PO; OMEP10CA45 PO; PANT40TA3 PO
[2018-12-15 12:52] LABS: AMORPHOUS SEDIMENT SMALL (NEGATIVE); BACTERIA, URINE AUTO 3+ (NEGATIVE); RBC, URINE AUTO 22 /HPF (0-3); SQUAMOUS EPITHELIAL CELL UR AU 0 /HPF (0-6); WBC, URINE AUTO TNTC /HPF (0-3)
== END ==
LOC: M LAB REF 12:02
PROVIDERS: ATTEND Nurse Practitioner Adult Health
DX: N39.0 Urinary tract infection, site not specified (principal)

== ENCOUNTER 2020-10-03 02:43 | Inpatient (IN) | payer OTHER, MEDICARE ==
[~2020-10-03] VITALS: Ht 185.4 cm; Wt 99.6 kg
[2020-10-03] VITALS (9 sets, daily range): BP systolic 104–161; BP diastolic 53–79
[~2020-10-03 02:43] MED LIST changes: +OMEP10CA PO; -OMEP10CA45 PO; +PANT40TA29 PO; -PANT40TA3 PO
[2020-10-03] MEDS ORDERED: PANT20TA6 (02:53)
[2020-10-03] MEDS ORDERED: ONDANSETRON 4MG/2ML VIAL IV ONE (03:30)
[2020-10-03] MEDS ORDERED: NS 2,810 ML in IV 1 EA IV ONE (03:30)
[2020-10-03 03:35] LABS: BASO % 0.4 % (0.0-1.0); EOS % 0.1 % (0.0-3.0); HEMATOCRIT 47.9 % (42.0-52.0); LYMPH # 0.4 10^3/uL (1.5-5.0); LYMPH % 3.6 % (24.0-44.0); MEAN CORPUSCULAR HEMOGLOBIN 29.2 pg (27.0-33.0); MEAN CORPUSCULAR HGB CONC 33.4 g/dl (32.0-36.5); MEAN CORPUSCULAR VOLUME 87.4 fl (80.0-96.0); MONO # 0.3 10^3/uL (0.0-0.8); MONO % 3.2 % (0.0-5.0); NEUTROPHILS # 9.1 10^3/uL (1.5-8.5); NEUTROPHILS % 91.4 % (36.0-66.0); PLATELET COUNT, AUTOMATED 237 10^3/uL (150-450); RED BLOOD COUNT 5.48 10^6/uL (4.30-6.10)
[2020-10-03 03:46] LABS: INR 1.15
--- NOTE | 2020-10-03 03:55 | REPVR ---
PROCEDURE INFORMATION: Exam: XR Chest, 1 View Exam date and time: 10/03/2020 3:17 AM Age: 65 years old Clinical indication: Other: Cough; Additional info: Sepsis/shock TECHNIQUE: Imaging protocol: XR of the chest Views: 1 view. COMPARISON: CR Chest, 2 view PA, Lat 07/17/2016 6:47 PM FINDINGS: Lungs: Unremarkable. No consolidation. Pleural space: Unremarkable. No pleural effusion. No pneumothorax. Heart/Mediastinum: Unremarkable. No cardiomegaly. Bones/joints: Unremarkable. IMPRESSION: Negative chest without change from 07/17/2016. Electronically signed by: Oneil Herron On 10/03/2020 03:55:11 AM
[2020-10-03 04:07] LABS: ALBUMIN 3.4 GM/DL (3.2-5.2); ALT/SGPT 19 U/L (12-78); BILIRUBIN,DIRECT 0.3 MG/DL (0.0-0.2); BILIRUBIN,TOTAL 1.3 MG/DL (0.2-1.0); BLOOD UREA NITROGEN 24 MG/DL (7-18); CALCIUM LEVEL 8.8 MG/DL (8.8-10.2); CARBON DIOXIDE LEVEL 24 MEQ/L (21-32); CHLORIDE LEVEL 109 MEQ/L (98-107); CK-MB VALUE MASS < 1.0 NG/ML (<3.6); CPK CREATINE PHOSPHOKINASE 80 U/L (39-308); GLOMERULAR FILTRATION RATE 49.7 (>49); GLUCOSE, FASTING 135 MG/DL (70-100); MB/CK RELATIVE INDEX 1.25 (< OR =4); POTASSIUM SERUM 4.3 MEQ/L (3.5-5.1); SODIUM LEVEL 140 MEQ/L (136-145); TOTAL PROTEIN 7.7 GM/DL (6.4-8.2); TROPONIN I 0.04 NG/ML (< 0.10)
[2020-10-03 04:48] LABS: INFLUENZA A AMPLIFICATION NEGATIVE (NEGATIVE); INFLUENZA B AMPLIFICATION NEGATIVE (NEGATIVE)
[2020-10-03 05:16] LABS: APPEARANCE, URINE TURBID (CLEAR); BACTERIA, URINE AUTO 1+ (NEGATIVE); BILIRUBIN, URINE AUTO NEGATIVE (NEGATIVE); BLOOD, URINE BLOOD 2+ (NEGATIVE); COLOR, URINE AMBER (YELLOW); GLUCOSE, URINE (UA) AUTO NEGATIVE (NEGATIVE); KETONE, URINE AUTO TRACE mg/dL (NEGATIVE); LEUKOCYTE ESTERASE, URINE AUTO 3+ (NEGATIVE); MUCUS, URINE SMALL (NEGATIVE); NITRITE, URINE AUTO POSITIVE (NEGATIVE); PROTEIN, URINE AUTO 1+ mg/dL (NEGATIVE); RBC, URINE AUTO 19 /HPF (0-3); SPECIFIC GRAVITY URINE AUTO 1.021 (1.002-1.035); SQUAMOUS EPITHELIAL CELL UR AU 0 /HPF (0-6); WBC, URINE AUTO TNTC /HPF (0-3)
[2020-10-03] MEDS ORDERED: PIPERACILLIN/TAZOBACTAM SOD 3.375 GM in D5W MINI-BAG PLUS 50 ML IV ONE (05:30)
[2020-10-03] MEDS ORDERED: PANT20TA6 PO (05:43)
--- NOTE | 2020-10-03 06:43 | HPEPDOC ---
[facility] Medical History & Physical Date of Admission Oct 03, 2020 Date of Service: Oct 03, 2020 Attending Physician: Costa Senior MD History and Physical CHIEF COMPLAINT: subjective fever, chills HISTORY OF PRESENT ILLNESS: Becki Molina is a 65-year-old male with history of hypertension, BPH, history of frequent UTIs who presents to the ED with 1 day chills, subjective fever, nausea. The patient reports that he was shoveling snow and subsequently felt very tired, a triggering his symptoms to overexerting himself. The symptoms continued to worsen throughout the day. He tried taking Tylenol which only gave him minimal relief. He reports that he has had several UTIs in the past and has been hospitalized once for this reason. He currently denies any dysuria symptoms, but does report foul odor to his urine recently. He knows he was diagnosed with BPH in the past but he does not currently take any medication for it. In 2009 he had similar presentation, sepsis with UTI and was found to have enlarged, very firm right prostatic lobe for which he underwent biopsy. The biopsy showed chronic inflammation but cannot rule out transitional cell carcinoma. Per EMR, it does not appear that the patient ever followed up with urology. PAST MEDICAL HISTORY: 1. Hypertension 2. GERD 3. BPH (not on any medications) 4. History of frequent UTIs (E.coli, Klebsiella) 5. HLD 6. Diverticulosis PAST SURGICAL HISTORY: 1. Cholecystectomy 2017 2. Spleenic rupture s/p trauma 1987 3. Bilateral broken legs, repair 4. Cystoscopy 2009 5. Prostate Bx 2009 (Path reads chronic inflammation vs cannot rule out low grade papillary transitional cell carcinoma) SOCIAL HISTORY: Never smoker, denies alcohol, denies other drugs FAMILY HISTORY: Reviewed and noncontributory ALLERGIES: Please see below. REVIEW OF SYSTEMS: 10-point ROS negative other than stated in HPI above. HOME MEDICATIONS: Please see below. PHYSICAL EXAMINATION: VITAL SIGNS: see below GENERAL: alert and oriented, in no apparent distress, pleasant and conversant in full sentences. HEENT: PERRL, EOMI, Oral mucous membranes are moist without lesions. NECK: The patient has no noted JVD. No adenopathy is appreciated. No thyromegaly CHEST/LUNGS: Lungs are clear bilaterally without rhonchi, rales, or wheezes. There is no subcutaneous air appreciated. There is no tenderness to the chest wall. HEART: Tachycardic, regular rhythm. No murmurs, rubs, or gallops are appreciated. Distal pulses are 2+. No carotid bruits appreciated. ABDOMEN: Soft, nontender, and nondistended. Bowel sounds are positive. No organomegaly is appreciated. No masses are appreciated. There are no peritoneal signs. There is no Fouke sign. There is no CVA tenderness. EXTREMITIES: No peripheral edema. There is no focal long bone tenderness or deformity. SKIN: The patients skin is warm and dry, without rashes or lesions. PSYCHIATRIC: AAO x 3, normal mood/affect NEUROLOGIC: The patient has 5/5 strength to the upper and lower extremities bilaterally. Sensation is intact throughout. Deep tendon reflexes are 2+ in all four extremities. There are no deficits to the cranial nerves. LABORATORY DATA: See below. IMAGING: CXR: FINDINGS: Lungs: Unremarkable. No consolidation. Pleural space: Unremarkable. No pleural effusion. No pneumothorax. Heart/Mediastinum: Unremarkable. No cardiomegaly. Bones/joints: Unremarkable. IMPRESSION: Negative chest without change from 07/17/2016. MICROBIOLOGY: Please see below. ASSESSMENT: This is a 65-year-old male with history of BPH, frequent UTIs who presented to the ED with fevers, chills, nausea found to have sepsis likely secondary to UTI. PLAN: 1. Sepsis: likely 2/2 UTI -Temperature found to be 103, heart rate greater than 90, suspected source identified in UA. WBC WNL -S/p 30cc/kg bolus in ED -s/p Zosyn in ED -Will start on empiric Rocephin, de-escalate as appropriate -UA shows positive nitrites, WBC. Pending culture 2. Frequent UTIs (commonly E.coli): -May be due to LUTS/BPH -Patient will need Urology follow up for possible cystoscopy 3. History of BPH, not currently on any medication: -Patient denies any symptoms of urinary retention, hesitancy -Will need PSA checked after infection clears. May be falsely high at this time due to infection. 4. CLARIBEL: Likely due to obstruction. -Cr found to be 1.5, unsure of baseline -Renal US pending 5. HTN: -Holding Ramipril 6.GERD: -Continue Pantoprazole DVT ppx: TEDs/SCDs DISPO: pending clinical improvement Vital Signs Vital Signs Date Time Temp Pulse Resp B/P (MAP) Pulse Ox O2 Delivery O2 Flow Rate FiO2 10/03/20 05:15 100.4 93 19 119/59 (79) 96 Room Air Laboratory Data Labs 24H Laboratory Tests 2 10/03/20 03:25: Immature Granulocyte % (Auto) 1.3, Neutrophils (%) (Auto) 91.4H, Lymphocytes (%) (Auto) 3.6L, Monocytes (%) (Auto) 3.2, Eosinophils (%) (Auto) 0.1, Basophils (%) (Auto) 0.4, Neutrophils # (Auto) 9.1H, Lymphocytes # (Auto) 0.4L, Monocytes # (Auto) 0.3, Eosinophils # (Auto) 0.0, Basophils # (Auto) 0.0, Nucleated Red Blood Cells % (auto) 0.0, Prothrombin Time 15.0H, Prothromb Time International Ratio 1.15, Anion Gap 7L, Glomerular Filtration Rate 49.7, Lactic Acid Level 1.5, Calcium Level 8.8, Total Bilirubin 1.3H, Direct Bilirubin 0.3H, Aspartate Amino Transf (AST/SGOT) 19, Alanine Aminotransferase (ALT/SGPT) 19, Alkaline Phosphatase 126H, Total Creatine Kinase 80, Creatine Kinase MB < 1.0, Creatine Kinase MB Relative Index 1.25, Troponin I 0.04, Total Protein 7.7, Albumin 3.4, Albumin/Globulin Ratio 0.8, Coronavirus (COVID-19)(PCR) NEGATIVE, Influenza Type A (RT-PCR) NEGATIVE, Influenza Type B (RT-PCR) NEGATIVE 10/03/20 05:05: Urine Color KOKI, Urine Appearance TURBIDH, Urine pH 5.0, Urine Specific [place] 1.021, Urine Protein 1+H, Urine Glucose (Auto)(UA) NEGATIVE, Urine Ketones (Auto) TRACEH, Urine Blood 2+H, Urine Nitrite POSITIVE, Urine Bilirubin NEGATIVE, Urine Urobilinogen 4.0H, Urine Leukocyte Esterase (Auto) 3+H, Urine WBC (Auto) TNTCH, Urine RBC (Auto) 19H, Urine Hyaline Casts (Auto) 0, Urine Bacteria (Auto) 1+H, Urine Squamous Epithelial Cells 0, Urine Mucus (Auto) SMALL, Urine Sperm (Auto) CBC/BMP Laboratory Tests 10/03/20 03:25 Microbiology Microbiology 10/03/20 Blood Culture, Received Pending 10/03/20 Blood Culture, Received Pending Home Medications Scheduled Pantoprazole Sodium (Pantoprazole Sodium) 20 Mg Tablet.dr, 20 MG PO DAILY Ramipril (Altace) 10 Mg Cap, 10 MG PO DAILY Allergies Coded Allergies: No Known Allergies (Verified , 06/10/18) A-FIB/CHADSVASC A-FIB History Current/History of A-Fib/PAF?: No Current PO Anticoag Therapy: No GME ATTESTATION ATTENDING NOTE Family Medicine Attending Note: I was present on site to supervise Radha Baker DO (PGY-3). We discussed the history and exam. I confirmed the miranda elements during my ayja-xu-nips encounter with the patient. We conferred on the assessment and plan; I agree with the note as documented. Mr. Molina needs his urinary tract infection leading to a sepsis syndrome treated while here, but I am concerned about history of poor follow-up with urology specifically as it relates to his prostate biopsy. I think it would be important for him to have a follow-up with them after this hospitalization as well. 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
[2020-10-03] MEDS ORDERED: ONDANSETRON 4 MG ORAL DISINTEGRATING TAB SL PRN (06:45)
--- NOTE | 2020-10-03 07:54 | REPVR ---
PROCEDURE INFORMATION: Exam: US Retroperitoneal Limited, Kidneys Exam date and time: 10/03/2020 7:45 AM Age: 65 years old Clinical indication: Other: Zaki TECHNIQUE: Imaging protocol: Real-time ultrasound of the retroperitoneum with image documentation. Examination was focused on the kidneys. COMPARISON: GALLBLADDER US 03/13/2018 8:54 PM FINDINGS: Right kidney: The right kidney measures 11.1 x 4.5 x 5.7 cm. Its cortex measures 1.7 cm in thickness. It contains a simple cyst measuring 2.8 x 2.3 x 1.9 cm. No hydronephrosis or demonstrated stone or mass. Left kidney: The left kidney measures 12.0 x 5.7 x 4.8 cm. It contains a septated cyst measuring 1.9 x 1.8 x 2.0 cm. No demonstrated stone or mass. While there is no megha hydronephrosis, the renal collecting system appears prominent, and the proximal left ureter is dilated up to 10 mm. Bladder: There is a 1.6 x 0.8 x 1.0 cm echogenic focus along the left posterior aspect of the urinary bladder. It is not clearly vascular, but pathology is not excluded. Bilateral ureteral jets were visualized. IMPRESSION: 1. 1.6 cm echogenic focus along the left posterior aspect of the urinary bladder, not clearly vascular, but with pathology not excluded. Recommend further urologic evaluation. 2. No megha hydronephrosis with asymmetric prominence of the left renal collecting system and proximal left ureter. Question whether the urinary bladder lesion could be partially obstructing. 3. 2.0 cm septated left renal cyst which would be better characterized with contrast-enhanced, renal protocol CT. 4. 2.8 cm simple right renal cyst. Electronically signed by: Dimas Wilson On 10/03/2020 07:54:54 AM
[2020-10-03] MEDS ORDERED: cefTRIAXone SOD 2 GM in D5W MINI-BAG PLUS 50 ML IV SCH (08:00)
[2020-10-03] MEDS: PANTOPRAZOLE 20 MG TAB PO SCH (08:25)
[2020-10-03] MEDS: ACETAMINOPHEN TAB 650MG DOSE (2X325MG) PO PRN ×2 (08:25→23:39)
[2020-10-03] MEDS ORDERED: ramipriL 5 MG CAP PO SCH (09:00)
--- NOTE | 2020-10-03 11:42 | IPNPDOC ---
Date Seen The patient was seen on 10/03/20. Progress Note SUBJECTIVE: She was seen and examined at bedside this morning. Appears ill. Tremulous, has subjective fevers and chills. Temperature max rectal 105. Ice packs under armpits. So reports episode of bright red blood per rectum this morning. There is visible blood on the sheets below him. Systemic toilet and noticed blood. Tellez catheter was just placed draining very thick opaque dark urine. OBJECTIVE PHYSICAL EXAMINATION: VITAL SIGNS: please see below General: Appears ill, his fevers and chills. HEENT: PERRLA, EOMI, sclerae clear Neck: supple, normal ROM, no JVD Respiratory: lungs CTAB, no wheeze, no rales, no crackles CVS: RRR, normal S1, S2, no murmurs Abdo: soft, no masses, no hepatosplenomegaly, BS+, no rebound tenderness lower abdomen tender to palpation. Extremities: no edema, pulses 2+ MSK: no joint deformities, normal ROM Neuro: no focal neuro deficits, moving all 4 extremities, CN2-12 intact. Strength 5/5 in all 4 extremities. No nystagmus. Psych: calm, cooperative, AAO x 3 LABORATORY DATA, IMAGING STUDIES, MICROBIOLOGY: Please see below. DVT prophylaxis ordered?: See these intense ASSESSMENT AND PLAN: 65-year-old male with history of hypertension, GERD and BPH and recurrent history of UTIs, presented with fever, hypotension, diagnosed with sepsis secondary to UTI as likely source. Imaging of the bladder showed possible 1.6 cm mass along with increased prominence of the left ureteral color urine collection system. Acute kidney injury likely secondary to dehydration/sepsis. Patient will be transferred to ICU for management of severe sepsis. PROBLEMS: Sepsis: Patient tachycardic, febrile. Suspect the source to be UTI. Tmax 105 rectal. Give 1L NS bolus. C/w IVF NS 150 cc/hr. Check LA, cbc, BMP. DC ceftriaxone. Star cefepime. Blood and urine cultures are pending. Bladder mass: Seen on renal imaging today. Discussed with Dr. Colon. Advised to follow-up as outpatient and to obtain a CT urogram whenever creatinine normalizes. Advised to place Tellez. Patient had a biopsy done in 2009, however, failed to follow-up. Will require cholesterol to follow-up. CLARIBEL: Cr 1.5. Likely pre renal. IVF. Dw Dr Alegria, claribel likely due to sepsis/dehydration rather than bladder mass. Hold on CT abdo at this time, US did not show obvious hydronephrosis. History of BPH and a biopsy in 2009. Benign tissue. We'll check PSA once no longer septic. Allergy follow-up will start Flomax and finasteride. Bright red blood per rectum: First-time occurrence, nose, blood in the toilet this morning. Hemoglobin stable. Repeat CBC pending. Suspect hemorrhoids, if hemoglobin drops will obtain GI evaluation. Hypertension. Hold OZ inhibitor due to HPI and sepsis. GERD. Continue PPI. Spell: Transfer to ICU for elevated level of care. Continue broad-spectrum antibiotics. PT and OT. VS, I&O, 24H, Fishbone Vital Signs/I&O Vital Signs Date Time Temp Pulse Resp B/P (MAP) Pulse Ox O2 Delivery O2 Flow Rate FiO2 10/03/20 10:53 102.8 10/03/20 08:10 76 17 115/79 (91) 96 Room Air I&O- Last 24 Hours up to 6 AM 10/03/20 05:59 Intake Total 2000 ml Output Total 30 ml Balance 1970 ml Laboratory Data 24H LABS Laboratory Tests 2 10/03/20 03:25: Immature Granulocyte % (Auto) 1.3, Neutrophils (%) (Auto) 91.4H, Lymphocytes (%) (Auto) 3.6L, Monocytes (%) (Auto) 3.2, Eosinophils (%) (Auto) 0.1, Basophils (%) (Auto) 0.4, Neutrophils # (Auto) 9.1H, Lymphocytes # (Auto) 0.4L, Monocytes # (Auto) 0.3, Eosinophils # (Auto) 0.0, Basophils # (Auto) 0.0, Nucleated Red Blood Cells % (auto) 0.0, Prothrombin Time 15.0H, Prothromb Time International Ratio 1.15, Anion Gap 7L, Glomerular Filtration Rate 49.7, Lactic Acid Level 1.5, Calcium Level 8.8, Total Bilirubin 1.3H, Direct Bilirubin 0.3H, Aspartate Amino Transf (AST/SGOT) 19, Alanine Aminotransferase (ALT/SGPT) 19, Alkaline Phosphatase 126H, Total Creatine Kinase 80, Creatine Kinase MB < 1.0, Creatine Kinase MB Relative Index 1.25, Troponin I 0.04, Total Protein 7.7, Albumin 3.4, Albumin/Globulin Ratio 0.8, Coronavirus (COVID-19)(PCR) NEGATIVE, Influenza Type A (RT-PCR) NEGATIVE, Influenza Type B (RT-PCR) NEGATIVE 10/03/20 05:05: Urine Color KOKI, Urine Appearance TURBIDH, Urine pH 5.0, Urine Specific [place] 1.021, Urine Protein 1+H, Urine Glucose (Auto)(UA) NEGATIVE, Urine Ketones (Auto) TRACEH, Urine Blood 2+H, Urine Nitrite POSITIVE, Urine Bilirubin NEGATIVE, Urine Urobilinogen 4.0H, Urine Leukocyte Esterase (Auto) 3+H, Urine WBC (Auto) TNTCH, Urine RBC (Auto) 19H, Urine Hyaline Casts (Auto) 0, Urine Bacteria (Auto) 1+H, Urine Squamous Epithelial Cells 0, Urine Mucus (Auto) SMALL, Urine Sperm (Auto) CBC/BMP Laboratory Tests 10/03/20 03:25 Microbiology Microbiology 10/03/20 Urine Culture, Received Pending 10/03/20 Blood Culture, Received Pending 10/03/20 Blood Culture, Received Pending SEN BOLTON MD Oct 03, 2020 11:42
[2020-10-03] MEDS ORDERED: NS 1,000 ML IV ONE (11:45)
[2020-10-03] MEDS: CEFEPIME HCL 2 GM in D5W MINI-BAG PLUS 50 ML IV SCH ×2 (11:49→19:44)
[2020-10-03] MEDS: NS 1,000 ML IV SCH ×2 (11:49→19:44)
[2020-10-03 11:57] LABS: BASO % 0.3 % (0.0-1.0); HEMATOCRIT 40.9 % (42.0-52.0); LYMPH # 0.2 10^3/uL (1.5-5.0); MEAN CORPUSCULAR HEMOGLOBIN 29.3 pg (27.0-33.0); MEAN CORPUSCULAR HGB CONC 33.5 g/dl (32.0-36.5); MEAN CORPUSCULAR VOLUME 87.4 fl (80.0-96.0); MONO % 0.9 % (0.0-5.0); NEUTROPHILS # 3.2 10^3/uL (1.5-8.5); NEUTROPHILS % 91.7 % (36.0-66.0); PLATELET COUNT, AUTOMATED 177 10^3/uL (150-450); RED BLOOD COUNT 4.68 10^6/uL (4.30-6.10); WHITE BLOOD COUNT 3.5 10^3/uL (4.0-10.0)
[2020-10-03 12:08] LABS: HEMOGLOBIN 13.7 g/dl (13.5-17.5)
[2020-10-03] MEDS ORDERED: ACETAMINOPHEN *IV* 1,000 MG in IV 1 EA IV ONE (12:15)
[2020-10-03 12:27] LABS: BLOOD UREA NITROGEN 21 MG/DL (7-18); CALCIUM LEVEL 8.4 MG/DL (8.8-10.2); CARBON DIOXIDE LEVEL 20 MEQ/L (21-32); CHLORIDE LEVEL 113 MEQ/L (98-107); GLOMERULAR FILTRATION RATE > 60.0 (>49); GLUCOSE, FASTING 92 MG/DL (70-100); SODIUM LEVEL 139 MEQ/L (136-145)
[2020-10-03] MEDS ORDERED: ASPIRIN 81 MG CHEW TABLET PO ONE (12:30)
[2020-10-03] MEDS ORDERED: ACETAMINOPHEN 500 MG TAB PO ONE (12:30)
[2020-10-03] MEDS ORDERED: LIDOCAINE 2% 5ML JELLY UROJET TOP ONE (13:00)
--- NOTE | 2020-10-03 15:50 | REP ---
INDICATION: elevated ALP, bilirubin. . COMPARISON: Comparison is 03/13/2018. TECHNIQUE: Multiple ultrasonographic images of the abdominal right upper quadrant. FINDINGS: There is a cholecystectomy. There is no intrahepatic or extrahepatic biliary duct dilatation. The common biliary duct measures 4 mm in diameter. The hepatic parenchyma is homogeneous and otherwise unremarkable. The pancreas is obscured by bowel. The right kidney is normal size measuring 11.0 x 4.3 x 4.0 cm. There is an upper pole cyst measuring 2.4 x 1.9 x 2.8 cm. This measured up to 1.9 cm on the previous study IMPRESSION: Cholecystectomy. The hepatic parenchyma is unremarkable. The pancreas is obscured. There is a right renal upper pole simple cyst. <Electronically signed by Severino Mackenzie > 10/03/20 [id number]
--- NOTE | 2020-10-03 18:14 | ECGEPIP ---
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
[2020-10-04] VITALS (8 sets, daily range): BP systolic 118–157; BP diastolic 65–79
[2020-10-04] MEDS: NS 1,000 ML IV SCH ×4 (03:15→20:10)
[2020-10-04] MEDS: CEFEPIME HCL 2 GM in D5W MINI-BAG PLUS 50 ML IV SCH ×2 (03:15→11:05)
[2020-10-04 05:28] LABS: HEMATOCRIT 36.9 % (42.0-52.0); MEAN CORPUSCULAR HEMOGLOBIN 28.6 pg (27.0-33.0); MEAN CORPUSCULAR HGB CONC 32.5 g/dl (32.0-36.5); MEAN CORPUSCULAR VOLUME 87.9 fl (80.0-96.0); PLATELET COUNT, AUTOMATED 144 10^3/uL (150-450); WHITE BLOOD COUNT 6.2 10^3/uL (4.0-10.0)
[2020-10-04 05:51] LABS: BLOOD UREA NITROGEN 18 MG/DL (7-18); CALCIUM LEVEL 7.7 MG/DL (8.8-10.2); CARBON DIOXIDE LEVEL 19 MEQ/L (21-32); CHLORIDE LEVEL 113 MEQ/L (98-107); CREATININE FOR GFR 0.91 MG/DL (0.70-1.30); GLOMERULAR FILTRATION RATE > 60.0 (>49); GLUCOSE, FASTING 110 MG/DL (70-100); POTASSIUM SERUM 3.7 MEQ/L (3.5-5.1); SODIUM LEVEL 139 MEQ/L (136-145)
[2020-10-04] MEDS: PANTOPRAZOLE 20 MG TAB PO SCH (08:52)
--- NOTE | 2020-10-04 13:00 | IPNPDOC ---
Date Seen The patient was seen on 10/04/20. Progress Note SUBJECTIVE: She was seen and examined at bedside. Doing well. Afebrile overnight, MAXIMUM TEMPERATURE 106.5 without fevers for the past 6 hours. He denies chest pain, abdominal pain, dysuria, nausea, vomiting or diarrhea. He is alert and oriented 3 and does not have any significant physical complaints. As for the patient that his without leukocytosis and inquired whether testing for HIV, hepatitis, patient declined being tested for either, stating that he knows he doesn't have it. OBJECTIVE PHYSICAL EXAMINATION: VITAL SIGNS: please see below General: Appears ill, his fevers and chills. HEENT: PERRLA, EOMI, sclerae clear Neck: supple, normal ROM, no JVD Respiratory: lungs CTAB, no wheeze, no rales, no crackles CVS: RRR, normal S1, S2, no murmurs Abdo: soft, no masses, no hepatosplenomegaly, BS+, no rebound tenderness lower abdomen tender to palpation. Rectal: mild blood on glove. Internal hemorrhoids palpated. 1 external hemorrhoid. Extremities: no edema, pulses 2+ MSK: no joint deformities, normal ROM Neuro: no focal neuro deficits, moving all 4 extremities, CN2-[address] rength 5/5 in all 4 extremities. No nystagmus. Psych: calm, cooperative, AAO x 3 LABORATORY DATA, IMAGING STUDIES, MICROBIOLOGY: Please see below. DVT prophylaxis ordered?: See these intense ASSESSMENT AND PLAN: 65-year-old male with history of hypertension, GERD and BPH and recurrent history of UTIs, presented with fever, hypotension, diagnosed with sepsis secondary to UTI as likely source. Imaging of the bladder showed possible 1.6 cm mass along with increased prominence of the left ureteral color urine collection system. Acute kidney injury likely secondary to dehydration/sepsis. Patient will be transferred to ICU for management of severe sepsis. PROBLEMS: Sepsis: Patient tachycardic, febrile. Suspect the source to be UTI. Tmax 105 rectal. Give 1L NS bolus. C/w IVF NS 150 cc/hr. Check LA, cbc, BMP. DC ceftriaxone. Stared cefepime. Blood and urine cultures are pending. Dr. Pruitt co nsulted. consulted given the fact that the patient does not have any leukocytosis despite very high fevers, Tmax 106.5. Will obtain CT abdo pelvix wo follow by w/ (with CT urogram), to assess for intrabdominal collection as well as bladder mass. Acidosis: Lactic acid 2.8. Resolved status post 1 L IV bolus. Bladder mass: Seen on renal imaging today. Discussed with Dr. Colon. Advised to follow-up as outpatient and to obtain a CT urogram whenever creatinine normalizes. Advised to place Tellez. Patient had a biopsy done in 2009, however, failed to follow-up. Will require cholesterol to follow-up. Discussed with Dr. Reed, ordered CT urogram - will help characterize bladder mass as well as L renal cyst (which looks like a simple cyst per Dr. Reed on US). CLARIBEL: resolvedLikely pre renal. IVF. Dw Dr Alegria, claribel likely due to sepsis/dehydration rather than bladder mass. History of BPH and a biopsy in 2009. Benign tissue. check PSA once no longer septic. Allergy follow-up will start Flomax and finasteride. Bright red blood per rectum: First-time occurrence, nose, blood in the toilet this morning. Hemoglobin stable. Repeat CBC pending. Suspect hemorrhoids, if hemoglobin drops will obtain GI evaluation. Hypertension. Hold OZ inhibitor. GERD. Continue PPI. Spell: Transfer to ICU for elevated level of care. Continue broad-spectrum antibiotics. PT and OT. VS, I&O, 24H, Fishbone Vital Signs/I&O Vital Signs Date Time Temp Pulse Resp B/P (MAP) Pulse Ox O2 Delivery O2 Flow Rate FiO2 10/04/20 12:00 98.8 71 18 136/75 (95) 99 Room Air I&O- Last 24 Hours up to 6 AM 10/04/20 06:00 Intake Total 5185 ml Output Total 1540 ml Balance 3645 ml Laboratory Data 24H LABS Laboratory Tests 2 10/03/20 14:43: Lactic Acid Level 1.4 10/04/20 05:12: Nucleated Red Blood Cells % (auto) 0.0, Anion Gap 7L, Glomerular Filtration Rate > 60.0, Calcium Level 7.7L, Magnesium Level 2.0 CBC/BMP Laboratory Tests 10/04/20 05:12 Microbiology Microbiology 10/03/20 Urine Culture, Received Pending 10/03/20 Blood Culture - Preliminary, Resulted No growth after 24 hours . All specim... 10/03/20 Blood Culture - Preliminary, Resulted No growth after 24 hours . All specim... SEN BOLTON MD Oct 04, 2020 13:00
[2020-10-04] MEDS ORDERED: ISOVUE-370 76% 100ML VIAL As Ordered ONE (13:02)
--- NOTE | 2020-10-04 14:20 | REP ---
INDICATION: CT urogram please. COMPARISON: Comparison is made with urinary tract sonography from the October 03, 2020 showing possible bladder mass and bilateral renal cysts. Comparison CT study is reviewed from July 04, 2018.. TECHNIQUE: Contrast dose: 100 ML of Isovue [address] technique: Helical scanning is acquired and overlapping 1.5 mm and contiguous 3 mm axial images are reformatted. In addition, multiplanar re-formation images are generated in sagittal and coronal imaging projections. 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 There is a Tellez catheter. Bowel gas pattern is normal. The lung bases are clear. There is no evidence of pleural effusion or upper abdominal ascites. The spleen is enlarged measuring 15.1 cm in greatest dimension. The liver is homogeneous in texture without focal liver lesion. It has a vertical span in the midclavicular line of 18.9 cm which is enlarged. Normal adrenal glands are seen. Liver and spleen size are unchanged. Clips are noted in the gallbladder fossa. No abnormality is noted in the pancreas. There is a hiatal hernia trans [place]z some paraesophageal fat. There is a nonenhancing cyst in the lateral aspect of the left kidney measuring 2.8 cm in greatest diameter. This appears benign and simple by CT criteria. Similarly, there is a cyst 3.1 cm in diameter in the upper pole the right kidney which shows no evidence of contrast enhancement or nodularity. No renal mass lesion is observed. Delayed scan images show no filling defect in the collecting system or ureters on either side. No enhancing bladder mass is seen. There is minimal diffuse thickening of the urinary bladder. Tellez catheter is seen in place. Prostate is unremarkable as are seminal vesicles. There is sigmoid colon diverticulosis. There is some mural thickening in this segment of the sigmoid colon which directly overlies the bladder dome. Question changes of mild diverticulitis. No abscess or free air is seen. Small and large intestinal bowel loops are otherwise unremarkable. Normal appendix. No abdominal wall defect is seen. IMPRESSION: Two benign cysts in the kidneys, 1 on each side as above. No renal mass lesion seen. No bladder mass is apparent. There is mural thickening and diverticulosis in the sigmoid colon consistent with diverticulitis. This segment of the colon lies immediately adjacent to the bladder dome a. Tellez catheter seen in place. Hiatal hernia and post cholecystectomy are incidental findings. <Electronically signed by Vito Reed > 10/04/20 [id number]
[2020-10-04] MEDS: ACETAMINOPHEN TAB 650MG DOSE (2X325MG) PO PRN (14:37)
[2020-10-04] MEDS: PIPERACILLIN/TAZOBACTAM SOD 3.375 GM in D5W MINI-BAG PLUS 50 ML IV SCH ×2 (16:12→22:06)
[2020-10-05] VITALS: BP 130/74
[2020-10-05] MEDS: ACETAMINOPHEN TAB 650MG DOSE (2X325MG) PO PRN (02:53)
[2020-10-05 04:00] VITALS: BP 141/79
[2020-10-05] MEDS: NS 1,000 ML IV SCH ×2 (04:40→15:01)
[2020-10-05] MEDS: PIPERACILLIN/TAZOBACTAM SOD 3.375 GM in D5W MINI-BAG PLUS 50 ML IV SCH ×4 (04:40→21:20)
[2020-10-05 04:41] LABS: HEMATOCRIT 33.5 % (42.0-52.0); HEMOGLOBIN 11.1 g/dl (13.5-17.5); MEAN CORPUSCULAR HEMOGLOBIN 28.8 pg (27.0-33.0); MEAN CORPUSCULAR HGB CONC 33.1 g/dl (32.0-36.5); PLATELET COUNT, AUTOMATED 150 10^3/uL (150-450); RED BLOOD COUNT 3.85 10^6/uL (4.30-6.10); WHITE BLOOD COUNT 5.1 10^3/uL (4.0-10.0)
[2020-10-05 05:03] LABS: BLOOD UREA NITROGEN 16 MG/DL (7-18); CALCIUM LEVEL 7.4 MG/DL (8.8-10.2); CARBON DIOXIDE LEVEL 20 MEQ/L (21-32); CHLORIDE LEVEL 113 MEQ/L (98-107); CREATININE FOR GFR 0.84 MG/DL (0.70-1.30); GLOMERULAR FILTRATION RATE > 60.0 (>49); GLUCOSE, FASTING 100 MG/DL (70-100); POTASSIUM SERUM 3.6 MEQ/L (3.5-5.1); SODIUM LEVEL 139 MEQ/L (136-145)
[2020-10-05 08:12] VITALS: BP 151/87
[2020-10-05] MEDS: PANTOPRAZOLE 20 MG TAB PO SCH (09:47)
--- NOTE | 2020-10-05 12:56 | DS.PDOC ---
Discharge Summary General Date of Admission Oct 03, 2020 at 06:27 Date of Discharge 10/05/20 Discharge Summary PROCEDURES PERFORMED DURING STAY: [None]. ADMITTING DIAGNOSES: Sepsis CLARIBEL hx of frequent UTIs Hx of BPH HTN GERD DISCHARGE DIAGNOSES: Sepsis CLARIBEL UTI 2/2 e coli and strep mutans hx of frequent UTIs Hx of BPH HTN GERD COMPLICATIONS/CHIEF COMPLAINT: Uti, Sepsis. HISTORY OF PRESENT ILLNESS: Phillip Molina is a 65-year-old male with history of hypertension, BPH, history of frequent UTIs who presents to the ED with 1 day chills, subjective fever, nausea. The patient reports that he was shoveling snow and subsequently felt very tired, a triggering his symptoms to overexerting himself. The symptoms continued to worsen throughout the day. He tried taking Tylenol which only gave him minimal relief. He reports that he has had several UTIs in the past and has been hospitalized once for this reason. He currently denies any dysuria symptoms, but does report foul odor to his urine recently. He knows he was diagnosed with BPH in the past but he does not currently take any medication for it. In 2009 he had similar presentation, sepsis with UTI and was found to have enlarged, very firm right prostatic lobe for which he underwent biopsy. The biopsy showed chronic inflammation but cannot rule out transitional cell carcinoma. Per EMR, it does not appear that the patient ever followed up with urology. HOSPITAL COURSE: #Sepsis: Patient tachycardic, febrile. Suspect the source to be UTI. Tmax 105 rectal, improved with tylenol. Was treated with 2 days of cefepime, 2 days zosyn. Ucx grew oneil-sensitive E coli and strep mutans. Patient was DC with augmentin 875 mg BID x 7 days, for concurrent treatment of diverticulitis. Blood and urine cultures are pending. Dr. Pruitt consulted. consulted given the fact that the patient does not have any leukocytosis despite very high fevers, Tmax 106.5. CT urogram does not show intraabdominal collection. Benign renal cysts. No bladder mass reproduced. D/w microbiology lab, urine culture still pending, appears to be e coli with possibility of enterococcus (species unknown). Patient has responded well to zosyn, however I would like to have urine C&S available prior to DC. C/w zosyn for now. #Lactic Acidosis: resolved with IVF #Bladder mass: Seen on renal imaging today. Discussed with Dr. Colon. Advised to follow-up as outpatient and to obtain a CT urogram whenever creatinine normalizes. Advised to place Tellez. Patient had a biopsy done in 2009, however, failed to follow-up. Discussed with Dr. Reed, ordered CT urogram - will help ameya racterize bladder mass as well as L renal cyst (which looks like a simple cyst per Dr. Reed on US). Reviewed his CT urogram results does not show renal mass. Renal cysts. Also appear benign. The patient will follow-up with urology. #Diverticulitis: seen on CT urogram. C/w blood per rectum. Receiving zosyn. No further bleeding, no abdominal pain. Tolerating diet. Continue Augmentin 875 mg BID x 7 days as outpatient. #CLARIBEL: resolved. #History of BPH and a biopsy in 2009. Benign tissue. check PSA once no longer septic. Allergy follow-up will start Flomax and finasteride. #Bright red blood per rectum: First-time occurrence.Hemoglobin stable. CT imaging c/w diverticulitis. possible bleeding internal hemorrhoids. Hypertension. Hold OZ inhibitor. GERD. Continue PPI. DISCHARGE MEDICATIONS: Please see below. ALLERGIES: Please see below. PHYSICAL EXAMINATION ON DISCHARGE: VITAL SIGNS: please see below General: Appears ill, his fevers and chills. HEENT: PERRLA, EOMI, sclerae clear Neck: supple, normal ROM, no JVD Respiratory: lungs CTAB, no wheeze, no rales, no crackles CVS: RRR, normal S1, S2, no murmurs Abdo: soft, no masses, no hepatosplenomegaly, BS+, no rebound tenderness lower abdomen tender to palpation. Rectal: mild blood on glove. Internal hemorrhoids palpated. 1 external hemorrhoid. Extremities: no edema, pulses 2+ MSK: no joint deformities, normal ROM Neuro: no focal neuro deficits, moving al LABORATORY DATA: Please see below. IMAGING: CT urogram (10/05/20): Two benign cysts in the kidneys, 1 on each side as above. No renal mass lesion seen. No bladder mass is apparent. There is mural thickening and diverticulosis in the sigmoid colon consistent with diverticulitis. This segment of the colon lies immediately adjacent to the bladder dome a. Tellez catheter seen in place. Hiatal hernia and post cholecystectomy are incidental findings. PROGNOSIS: good ACTIVITY: As tolerated DIET: as tolerated DISCHARGE PLAN: DC home with PCP, GI and Urology follow. Patient was strongly advised to follow up as he requires a colonoscopy a swell as possible cystoscopy DISPOSITION: . DISCHARGE INSTRUCTIONS: . Please follow-up with your primary care doctor within 3-5 days . Please follow-up with gastroenterology within 1-2 weeks . Please follow-up with urology within 1-2 weeks . Please taking medications as prescribed. . If you develop bleeding, chest pain, shortness of breath, seizures, nausea, fevers, or otherwise worsening of your symptoms, please call 911 or return to the nearest emergency room ITEMS TO FOLLOWUP ON ON OUTPATIENT: Needs a colonoscopy. Needs a cystoscopy. Check PSA Follow up final blood cultures DISCHARGE CONDITION: Stable TIME SPENT ON DISCHARGE: 35 minutes Vital Signs/I&Os Vital Signs Date Time Temp Pulse Resp B/P (MAP) Pulse Ox O2 Delivery O2 Flow Rate FiO2 10/05/20 08:12 97.4 62 18 151/87 (108) 97 Room Air I&O- Last 24 Hours up to 6 AM 10/05/20 06:00 Intake Total 1500 ml Output Total 1295 ml Balance 205 ml Laboratory Data Labs 24H Laboratory Tests 2 10/05/20 04:28: Nucleated Red Blood Cells % (auto) 0.0, Anion Gap 6L, Glomerular Filtration Rate > 60.0, Calcium Level 7.4L CBC/BMP Laboratory Tests 10/05/20 04:28 Microbiology Microbiology 10/03/20 Urine Culture - Preliminary, Resulted Escherichia Coli 10/03/20 Blood Culture - Preliminary, Resulted No Growth after 48 hours. All Specime... 10/03/20 Blood Culture - Preliminary, Resulted No Growth after 48 hours. All Specime... Discharge Medications Scheduled Amoxicillin/Potassium Clav (Amox-Clav 875-125 mg Tablet) 1 Each Tablet, 1 TAB PO TID Pantoprazole Sodium (Pantoprazole Sodium) 20 Mg Tablet.dr, 20 MG PO DAILY Pantoprazole Sodium (Pantoprazole Sodium) 40 Mg Tablet.dr, 40 MG PO DAILY Ramipril (Altace) 10 Mg Cap, 10 MG PO DAILY, (Reported) Tamsulosin HCl (Flomax) 0.4 Mg Capsule, 1 CAP PO DAILY Scheduled PRN Acetaminophen (Tylenol) 325 Mg Capsule, 650 MG PO Q6HP PRN for FEVER Allergies Coded Allergies: No Known Allergies (Verified , 06/10/18) SEN BOLTON MD Oct 05, 2020 12:56
--- NOTE | 2020-10-05 13:08 | IPNPDOC ---
Date Seen The patient was seen on 10/05/20. Progress Note SUBJECTIVE: Patient seen and examined at bedside. Doing well. No fevers overnight. The patient denies dysuria, abdominal pain due to fevers and chills, chest pain, nausea, vomiting, diarrhea, shortness of breath. OBJECTIVE PHYSICAL EXAMINATION: VITAL SIGNS: please see below General: Appears ill, his fevers and chills. HEENT: PERRLA, EOMI, sclerae clear Neck: supple, normal ROM, no JVD Respiratory: lungs CTAB, no wheeze, no rales, no crackles CVS: RRR, normal S1, S2, no murmurs Abdo: soft, no masses, no hepatosplenomegaly, BS+, no rebound tenderness lower abdomen tender to palpation. Rectal: mild blood on glove. Internal hemorrhoids palpated. 1 external hemorrhoid. Extremities: no edema, pulses 2+ MSK: no joint deformities, normal ROM Neuro: no focal neuro deficits, moving all 4 extremities, CN2-12 intact. Strength 5/5 in all 4 extremities. No nystagmus. Psych: calm, cooperative, AAO x 3 LABORATORY DATA, IMAGING STUDIES, MICROBIOLOGY: Please see below. CT urogram (10/05/20): Two benign cysts in the kidneys, 1 on each side as above. No renal mass lesion seen. No bladder mass is apparent. There is mural thickening and diverticulosis in the sigmoid colon consistent with diverticulitis. This segment of the colon lies immediately adjacent to the bladder dome a. Tellez catheter seen in place. Hiatal hernia and post cholecystectomy are incidental findings. DVT prophylaxis ordered?: CTs diets Lovenox. ASSESSMENT AND PLAN: 65-year-old male with history of hypertension, GERD and BPH and recurrent history of UTIs, presented with fever, hypotension, diagnosed with sepsis secondary to UTI as likely source. Imaging of the bladder showed possible 1.6 cm mass along with increased prominence of the left ureteral color urine collection system. Acute kidney injury likely secondary to dehydration/sepsis. Patient will be transferred to ICU for management of severe sepsis. PROBLEMS: #Sepsis: Patient tachycardic, febrile. Suspect the source to be UTI. Tmax 105 rectal. Give 1L NS bolus. C/w IVF NS 150 cc/hr. Check LA, cbc, BMP. DC ceftriaxone. Stared cefepime. Blood and urine cultures are pending. Dr. Pruitt consulted. consulted given the fact that the patient does not have any leukocytosis despite very high fevers, Tmax 106.5. CT urogram does not show intraabdominal collection. Benign renal cysts. No bladder mass reproduced. D/w microbiology lab, urine culture still pending, appears to be e coli with possibility of enterococcus (species unknown). Patient has responded well to zosyn, however I would like to have urine C&S available prior to DC. C/w zosyn for now. #Lactic Acidosis: Lactic acid 2.8. Resolved status post 1 L IV bolus. #Bladder mass: Seen on renal imaging today. Discussed with Dr. Colon. Advised to follow-up as outpatient and to obtain a CT urogram whenever creatinine normalizes. Advised to place Tellez. Patient had a biopsy done in 2009, however, failed to follow-up. Discussed with Dr. Reed, ordered CT urogram - will help characterize bladder mass as well as L renal cyst (which looks like a simple cyst per Dr. Reed on US). Reviewed his CT urogram results does not show renal mass. Renal cysts. Also appear benign. The patient will follow-up with urology. #Diverticulitis: seen on CT urogram. C/w blood per rectum. Receiving zosyn. No further bleeding, no abdominal pain. Tolerating diet. #CLARIBEL: resolved. #History of BPH and a biopsy in 2009. Benign tissue. check PSA once no longer septic. Allergy follow-up will start Flomax and finasteride. #Bright red blood per rectum: First-time occurrence, nose, blood in the toilet this morning. Hemoglobin stable. CT imaging c/w diverticulitis. Hypertension. Hold OZ inhibitor. GERD. Continue PPI. Dispo: Transfer to ICU for elevated level of care. Continue broad-spectrum antibiotics. PT and OT. Plan for DC on 10/06/20 once urine cultures and sens available. VS, I&O, 24H, Gavin[place]one Vital Signs/I&O Vital Signs Date Time Temp Pulse Resp B/P (MAP) Pulse Ox O2 Delivery O2 Flow Rate FiO2 10/05/20 08:12 97.4 62 18 151/87 (108) 97 Room Air I&O- Last 24 Hours up to 6 AM 10/05/20 06:00 Intake Total 1500 ml Output Total 1295 ml Balance 205 ml Laboratory Data 24H LABS Laboratory Tests 2 10/05/20 04:28: Nucleated Red Blood Cells % (auto) 0.0, Anion Gap 6L, Glomerular Filtration Rate > 60.0, Calcium Level 7.4L CBC/BMP Laboratory Tests 10/05/20 04:28 Microbiology Microbiology 10/03/20 Urine Culture - Preliminary, Resulted Escherichia Coli 10/03/20 Blood Culture - Preliminary, Resulted No Growth after 48 hours. All Specime... 10/03/20 Blood Culture - Preliminary, Resulted No Growth after 48 hours. All Specime... SEN BOLTON MD Oct 05, 2020 13:08
[2020-10-05 16:00] VITALS: BP 177/96
[2020-10-05 19:01] VITALS: BP 150/88
[2020-10-05 22:00] VITALS: BP 154/83
[2020-10-06] MEDS: PIPERACILLIN/TAZOBACTAM SOD 3.375 GM in D5W MINI-BAG PLUS 50 ML IV SCH ×2 (05:52→09:11)
[2020-10-06 06:00] VITALS: BP 164/81
[2020-10-06 07:32] LABS: HEMATOCRIT 36.6 % (42.0-52.0); HEMOGLOBIN 12.3 g/dl (13.5-17.5); MEAN CORPUSCULAR HEMOGLOBIN 29.1 pg (27.0-33.0); MEAN CORPUSCULAR HGB CONC 33.6 g/dl (32.0-36.5); MEAN CORPUSCULAR VOLUME 86.7 fl (80.0-96.0); PLATELET COUNT, AUTOMATED 195 10^3/uL (150-450); RED BLOOD COUNT 4.22 10^6/uL (4.30-6.10); WHITE BLOOD COUNT 4.9 10^3/uL (4.0-10.0)
[2020-10-06 08:01] LABS: BLOOD UREA NITROGEN 10 MG/DL (7-18); CARBON DIOXIDE LEVEL 23 MEQ/L (21-32); CHLORIDE LEVEL 110 MEQ/L (98-107); CREATININE FOR GFR 0.86 MG/DL (0.70-1.30); GLOMERULAR FILTRATION RATE > 60.0 (>49); GLUCOSE, FASTING 102 MG/DL (70-100); POTASSIUM SERUM 3.7 MEQ/L (3.5-5.1); SODIUM LEVEL 141 MEQ/L (136-145)
[2020-10-06] MEDS: PANTOPRAZOLE 20 MG TAB PO SCH (09:11)
[2020-10-06] MEDS ORDERED: PANT40TA29 PO (12:42)
[2020-10-06] MEDS ORDERED: PANT20TA6 PO (12:42)
[2020-10-06] MEDS ORDERED: FLOM0.4C39 PO (12:42)
[2020-10-06] MEDS ORDERED: AMOX875T2 PO (12:42)
[2020-10-06] MEDS ORDERED: ACET325C5 PO (12:43)
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
== END 2020-10-06 14:25 | disposition home or self-care (01) | DRG 872 ==
LOC: M ED 02:43 → M ED INP 06:27 → ENRESERV 06:41 → M MSPAV 08:05 → M ICU 12:36 → M PCU 20:35 → M MS5PR 10-05 15:40
PROVIDERS: ADMIT Family Medicine; ATTEND Family Medicine
DX: A41.9 Sepsis, unspecified organism (principal); N39.0 Urinary tract infection, site not specified; N17.9 Acute kidney failure, unspecified; K62.5 Hemorrhage of anus and rectum; E87.2 Acidosis; N40.0 Benign prostatic hyperplasia without lower urinary tract symptoms; I10 Essential (primary) hypertension; R65.20 Severe sepsis without septic shock; B96.20 Unspecified Escherichia coli [E. coli] as the cause of diseases classified elsewhere; Z66 Do not resuscitate; K21.9 Gastro-esophageal reflux disease without esophagitis; K57.30 Diverticulosis of large intestine without perforation or abscess without bleeding; Z79.899 Other long term (current) drug therapy; Z20.828 Contact with and (suspected) exposure to other viral communicable diseases; N28.1 Cyst of kidney, acquired

== ENCOUNTER → 2020-11-05 | Outpatient (REF) | payer MEDICARE, OTHER ==
[~2020-11-05] MED LIST changes: +ACET325C5 PO; +AMOX875T2 PO; +FLOM0.4C39 PO; +PANT20TA6; +PANT20TA6 PO
[2020-11-05 14:23] LABS: AMORPHOUS SEDIMENT MODERATE (NEGATIVE); APPEARANCE, URINE TURBID (CLEAR); BACTERIA, URINE AUTO 3+ (NEGATIVE); BILIRUBIN, URINE AUTO NEGATIVE (NEGATIVE); BLOOD, URINE BLOOD 2+ (NEGATIVE); COLOR, URINE YELLOW (YELLOW); GLUCOSE, URINE (UA) AUTO NEGATIVE (NEGATIVE); KETONE, URINE AUTO NEGATIVE (NEGATIVE); LEUKOCYTE ESTERASE, URINE AUTO 3+ (NEGATIVE); NITRITE, URINE AUTO POSITIVE (NEGATIVE); PROTEIN, URINE AUTO 1+ mg/dL (NEGATIVE); RBC, URINE AUTO 39 /HPF (0-3); SPECIFIC GRAVITY URINE AUTO 1.013 (1.002-1.035); SQUAMOUS EPITHELIAL CELL UR AU 0 /HPF (0-6); WBC, URINE AUTO 67 /HPF (0-3)
== END ==
LOC: M SMT 13:29
PROVIDERS: ATTEND Nurse Practitioner Women's Health
DX: N39.0 Urinary tract infection, site not specified (principal)

== ENCOUNTER → 2021-02-28 | Outpatient (CLI) | payer OTHER, MEDICARE | LOC: M LABSMTC 09:32 | PROVIDERS: ATTEND Anesthesiology | DX: Z01.812 Encounter for preprocedural laboratory examination (principal); Z11.52 Encounter for screening for COVID-19 ==

== ENCOUNTER 2021-03-05 09:29 | Day surgery (SDC) | payer OTHER, MEDICARE ==
[~2021-03-05] VITALS: Ht 185.4 cm; Wt 96.5 kg
[~2021-03-05 09:29] MED LIST changes: +NS 1,000 ML IV ONE
[2021-03-05] MEDS ORDERED: LIDOCAINE 2% MDV 20ML VIAL As Ordered ONE (10:51)
[2021-03-05] MEDS ORDERED: propofoL 200 MG/20 ML VIAL As Ordered ONE ×2 (10:51→11:13)
[2021-03-05] MEDS ORDERED: fentaNYL 100 MCG/2 ML INJECTION (J3010) As Ordered ONE (10:51)
--- NOTE | 2021-03-05 11:08 | ROOR ---
Patient Name: Phillip Molina Procedure Date: 03/05/2021 10:53 AM Date of : 1955 Age: 66 Room: [facility] Gender: Male Note Status: Finalized Procedure: Upper Endoscopy + Biopsies Indications: Heartburn, Exclusion of Panchal's esophagus Providers: Russell Hood MD Referring MD: Nicky Berry NP Requesting Provider: Medicines: Monitored Anesthesia Care Complications: No immediate complications. Procedure: Pre-Anesthesia Assessment: - The heart rate, respiratory rate, oxygen saturations, blood pressure, adequacy of pulmonary ventilation, and response to care were monitored throughout the procedure. The Endoscope was introduced through the mouth, and advanced to the second part of duodenum. The upper GI endoscopy was accomplished without difficulty. The patient tolerated the procedure well. Findings: The Z-line was regular and was found 35 cm from the incisors. Multiple biopsies were obtained with cold forceps for evaluation to rule out Panchal's Esophagus randomly at the gastroesophageal junction. A small hiatal hernia was present. No other significant abnormalities were identified in a careful examination of the stomach. The exam of the duodenum was otherwise normal. Impression: - Z-line regular, 35 cm from the incisors. - Small hiatal hernia. - Multiple biopsies were obtained at the gastroesophageal junction. - The examination was otherwise normal. Recommendation: - Patient has a contact number available for emergencies. The signs and symptoms of potential delayed complications were discussed with the patient. Return to normal activities tomorrow. Written discharge instructions were provided to the patient. - High fiber diet. - Discharge patient to home. - Follow an antireflux regimen. - Continue present medications. - Await pathology results. - Telephone GI clinic for pathology results in 1 week. - Return to referring physician. - The findings and recommendations were discussed with the patient's family. Procedure Code(s): --- Professional --- 76702, Esophagogastroduodenoscopy, flexible, transoral; with biopsy, single or multiple Diagnosis Code(s): --- Professional --- K44.9, Diaphragmatic hernia without obstruction or gangrene R12, Heartburn CPT copyright 2019 [employer]. All rights reserved. The codes documented in this report are preliminary and upon clam grower review may be revised to meet current compliance requirements. Russell Hood MD Russell Hood MD 03/05/2021 11:08:32 AM Electronically signed by Russell Hood MD Number of Addenda: 0 Note Initiated On: 03/05/2021 10:53 AM Estimated Blood Loss: Estimated blood loss: none.
--- NOTE | 2021-03-05 11:32 | ROOR ---
Patient Name: Phillip Molina Procedure Date: 03/05/2021 10:55 AM Date of : 1955 Age: 66 Room: [facility] Gender: Male Note Status: Finalized Procedure: Colonoscopy to 40 cms-POOR PREP/colonic stricture. Indications: Abnormal CT of the GI tract Providers: Russell Hood MD Referring MD: Nicky Berry NP Requesting Provider: Medicines: Monitored Anesthesia Care Complications: No immediate complications. Procedure: Pre-Anesthesia Assessment: - The heart rate, respiratory rate, oxygen saturations, blood pressure, adequacy of pulmonary ventilation, and response to care were monitored throughout the procedure. The Colonoscope was introduced through the anus with the intention of advancing to the cecum. The scope was advanced to the descending colon before the procedure was aborted. Medications were given. The Colonoscope was introduced through the and advanced to. The colonoscopy was performed with difficulty due to inadequate bowel prep. The patient tolerated the procedure well. Findings: The perianal and digital rectal examinations were normal. Non-bleeding internal hemorrhoids were found during retroflexion. The hemorrhoids were small and Grade I (internal hemorrhoids that do not prolapse). Multiple small and large-mouthed diverticula were found in the recto-sigmoid colon, sigmoid colon and descending colon. A benign-appearing, intrinsic moderate stenosis was found at 20 cm proximal to the anus and was traversed. The exam was otherwise without abnormality. Impression: - Non-bleeding internal hemorrhoids. - Diverticulosis in the recto-sigmoid colon, in the sigmoid colon and in the descending colon. 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 - The examination was otherwise normal. - No specimens collected. 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 Recommendation: - Patient has a contact number available for emergencies. The signs and symptoms of potential delayed complications were discussed with the patient. Return to normal activities tomorrow. Written discharge instructions were provided to the patient. - Resume previous diet. - Discharge patient to home. - Continue present medications. - Return to referring physician. - Refer to a surgeon as previously scheduled. - The findings and recommendations were discussed with the patient's family. Procedure Code(s): --- Professional --- 61547, 53, Colonoscopy, flexible; diagnostic, including collection of specimen(s) by brushing or washing, when performed (separate procedure) Diagnosis Code(s): --- Professional --- K64.0, First degree hemorrhoids K56.699, Other intestinal obstruction unspecified as to partial versus complete obstruction K57.30, Diverticulosis of large intestine without perforation or abscess without bleeding R93.3, Abnormal findings on diagnostic imaging of other parts of digestive tract CPT copyright 2019 [employer] [place] [employer]. All rights reserved. The codes documented in this report are preliminary and upon business risk consultant review may be revised to meet current compliance requirements. Russell Hood MD Russell Hood MD 03/05/2021 11:31:52 AM Electronically signed by Russell Hood MD Number of Addenda: 0 Note Initiated On: 03/05/2021 10:55 AM Estimated Blood Loss: Estimated blood loss: none.
[2021-03-05 11:50] VITALS: BP 178/98
== END 2021-03-05 11:51 | disposition home or self-care (01) ==
LOC: M OPP 09:29
PROVIDERS: ATTEND Internal Medicine Gastroenterology
DX: K56.699 Other intestinal obstruction unspecified as to partial versus complete obstruction (principal); K57.30 Diverticulosis of large intestine without perforation or abscess without bleeding; K64.0 First degree hemorrhoids; R93.3 Abnormal findings on diagnostic imaging of other parts of digestive tract; K44.9 Diaphragmatic hernia without obstruction or gangrene; R12 Heartburn; Z79.899 Other long term (current) drug therapy
CPT/HCPCS: 43239; 45378; 88305; J3010

== ENCOUNTER 2022-05-30 16:47 | Inpatient (IN) | payer MEDICARE ==
[~2022-05-30] VITALS: Ht 180.3 cm; Wt 102.0 kg
[~2022-05-30 16:47] MED LIST changes: -NS 1,000 ML IV ONE
[2022-05-30 17:21] LABS: BASO # 0.1 10^3/uL (0.0-0.2); BASO % 0.5 % (0.0-1.0); EOS % 0.1 % (0.0-3.0); HEMATOCRIT 53.5 % (42.0-52.0); LYMPH # 2.2 10^3/uL (1.5-5.0); LYMPH % 7.6 % (24.0-44.0); MEAN CORPUSCULAR HGB CONC 33.6 g/dl (32.0-36.5); MEAN CORPUSCULAR VOLUME 89.2 fl (80.0-96.0); MONO % 3.6 % (2.0-8.0); PLATELET COUNT, AUTOMATED 510 10^3/uL (150-450)
[2022-05-30] MEDS ORDERED: NS 1,000 ML IV ONE ×2 (17:25→18:00)
[2022-05-30 17:53] LABS: CK-MB VALUE MASS 1.4 NG/ML (<3.6); MB/CK RELATIVE INDEX 1.54 (< OR =4)
[2022-05-30 18:13] LABS: ALBUMIN 3.8 GM/DL (3.2-5.2); BILIRUBIN,DIRECT 0.2 MG/DL (0.0-0.2); BILIRUBIN,TOTAL 0.8 MG/DL (0.2-1.0); CALCIUM LEVEL 9.5 MG/DL (8.8-10.2); CREATININE FOR GFR 2.16 MG/DL (0.70-1.30); FREE T4 1.27 NG/DL (0.76-1.46); GLOMERULAR FILTRATION RATE 32.4 (>49); MAGNESIUM LEVEL 2.2 MG/DL (1.8-2.4); POTASSIUM SERUM 4.2 MEQ/L (3.5-5.1); THYROID STIMULATING HORMONE 1.79 uIU/ML (0.358-3.740); TOTAL PROTEIN 8.7 GM/DL (6.4-8.2)
[2022-05-30] MEDS ORDERED: PANT20TA6 PO (19:50)
[2022-05-30] MEDS ORDERED: HYDR12.55 PO (19:50)
[2022-05-30] MEDS ORDERED: FAMO1TAB11 PO (19:50)
[2022-05-30] MEDS ORDERED: LISI30TA4 PO (19:50)
[2022-05-30] MEDS ORDERED: HOME MED LIST COMPLETE! XX SCH (19:55)
[2022-05-30 20:17] LABS: HEMOGLOBIN A1c 5.2 %
[2022-05-30 20:19] LABS: RSV AMPLIFICATION NEGATIVE (NEGATIVE)
[2022-05-30 20:29] LABS: CK-MB VALUE MASS 1.1 NG/ML (<3.6); MB/CK RELATIVE INDEX 1.93 (< OR =4)
[2022-05-30] MEDS ORDERED: HYDROMORPHONE HCL 0.5 MG/ 0.5 ML SYRINGE (J1170 PER 1) IV PRN (22:30)
[2022-05-30 22:34] LABS: BILIRUBIN, URINE MANUAL NEGATIVE (NEGATIVE); GLUCOSE, URINE (UA) MANUAL 1+(100 MG/DL) mg/dL (NEGATIVE); KETONE, URINE MANUAL NEGATIVE (NEGATIVE); UROBILINOGEN, URINE MANUAL 1 MG mg/dl (NORMAL)
[2022-05-30 22:41] LABS: SQUAMOUS EPITHELIAL CELL URINE SMALL AMOUNT /hpf (SMALL AMT)
[2022-05-30 22:42] LABS: BACTERIA, URINE MOD AMOUNT
[2022-05-30 22:43] LABS: MUCUS, URINE SMALL AMOUNT (NEGATIVE)
[2022-05-30 22:44] LABS: RENAL EPITHELIAL CELLS, URINE SMALL AMOUNT /hpf
[2022-05-30] MEDS: metroNIDAZOLE 500 MG in IV 1 EA IV SCH (23:57)
[2022-05-30] MEDS: NS 1,000 ML IV SCH (23:57)
[2022-05-31] VITALS (7 sets, daily range): BP systolic 147–187; BP diastolic 91–97
[2022-05-31] MEDS: CIPROFLOXACIN 400 MG in IV 1 EA IV SCH ×2 (01:10→13:07)
[2022-05-31] MEDS ORDERED: NS 1,000 ML IV ONE (03:00)
[2022-05-31 06:11] LABS: ALBUMIN 2.8 GM/DL (3.2-5.2); BILIRUBIN,TOTAL 0.6 MG/DL (0.2-1.0); CALCIUM LEVEL 7.8 MG/DL (8.8-10.2); CREATININE FOR GFR 1.75 MG/DL (0.70-1.30); GLOMERULAR FILTRATION RATE 41.3 (>49); MAGNESIUM LEVEL 1.8 MG/DL (1.8-2.4); POTASSIUM SERUM 4.2 MEQ/L (3.5-5.1); TOTAL PROTEIN 6.3 GM/DL (6.4-8.2)
[2022-05-31] MEDS: HEPARIN SOD (PORCINE) 5000UNITS/ML 1ML VIAL/SYRINGE SC SCH ×3 (06:20→21:20)
[2022-05-31] MEDS: NS 1,000 ML IV SCH (08:30)
[2022-05-31] MEDS: metroNIDAZOLE 500 MG in IV 1 EA IV SCH ×2 (08:39→16:37)
[2022-05-31] MEDS ORDERED: hydroCHLOROthiazide 12.5 MG CAPSULE PO SCH (09:00)
[2022-05-31] MEDS ORDERED: MORPHINE 2 MG/ML 1ML VIAL IV PRN (09:35)
[2022-05-31] MEDS: FAMOTIDINE 20 MG TAB PO SCH (09:55)
[2022-05-31] MEDS: PANTOPRAZOLE 20 MG TAB PO SCH (09:55)
[2022-05-31] MEDS ORDERED: DICYCLOMINE 10 MG CAP PO PRN (10:50)
[2022-05-31 10:53] LABS: HEMATOCRIT 41.9 % (42.0-52.0); MEAN CORPUSCULAR HEMOGLOBIN 30.5 pg (27.0-33.0); MEAN CORPUSCULAR HGB CONC 34.8 g/dl (32.0-36.5); MEAN CORPUSCULAR VOLUME 87.5 fl (80.0-96.0); RED BLOOD COUNT 4.79 10^6/uL (4.30-6.10)
[2022-05-31 11:06] LABS: HEMOGLOBIN 14.6 g/dl (13.5-17.5); PLATELET COUNT, AUTOMATED 322 10^3/uL (150-450)
[2022-05-31] MEDS ORDERED: PREVNAR 13 VACCINE SYRINGE IM.IMMUN ONE (13:00)
[2022-05-31] MEDS: ACETAMINOPHEN TAB 650MG DOSE (2X325MG) PO PRN ×2 (13:10→15:15)
[2022-06-01] MEDS: metroNIDAZOLE 500 MG in IV 1 EA IV SCH ×3 (00:44→15:20)
[2022-06-01] MEDS: CIPROFLOXACIN 400 MG in IV 1 EA IV SCH ×2 (01:48→13:57)
[2022-06-01] MEDS: ACETAMINOPHEN TAB 650MG DOSE (2X325MG) PO PRN (05:27)
[2022-06-01] MEDS: HEPARIN SOD (PORCINE) 5000UNITS/ML 1ML VIAL/SYRINGE SC SCH ×3 (05:27→21:30)
[2022-06-01 06:00] VITALS: BP 173/97
[2022-06-01 06:44] LABS: HEMATOCRIT 39.8 % (42.0-52.0); HEMOGLOBIN 13.6 g/dl (13.5-17.5); MEAN CORPUSCULAR HEMOGLOBIN 29.9 pg (27.0-33.0); MEAN CORPUSCULAR HGB CONC 34.2 g/dl (32.0-36.5); MEAN CORPUSCULAR VOLUME 87.5 fl (80.0-96.0); PLATELET COUNT, AUTOMATED 273 10^3/uL (150-450); RED BLOOD COUNT 4.55 10^6/uL (4.30-6.10)
[2022-06-01 07:17] LABS: BLOOD UREA NITROGEN 25 MG/DL (7-18); CALCIUM LEVEL 8.5 MG/DL (8.8-10.2); CARBON DIOXIDE LEVEL 21 MEQ/L (21-32); CHLORIDE LEVEL 109 MEQ/L (98-107); CREATININE FOR GFR 1.05 MG/DL (0.70-1.30); GLOMERULAR FILTRATION RATE > 60.0 (>49); GLUCOSE, FASTING 121 MG/DL (70-100); SODIUM LEVEL 136 MEQ/L (136-145)
[2022-06-01] MEDS: FAMOTIDINE 20 MG TAB PO SCH (08:58)
[2022-06-01] MEDS: PANTOPRAZOLE 20 MG TAB PO SCH (08:58)
[2022-06-01] MEDS ORDERED: amLODIPine 5 MG TAB PO SCH (09:00)
[2022-06-01 14:00] VITALS: BP 168/96
[2022-06-01 20:00] VITALS: BP 164/96
[2022-06-01 22:00] VITALS: BP 168/96
[2022-06-02] MEDS: metroNIDAZOLE 500 MG in IV 1 EA IV SCH ×2 (00:03→08:41)
[2022-06-02] MEDS: CIPROFLOXACIN 400 MG in IV 1 EA IV SCH (01:03)
[2022-06-02] MEDS: HEPARIN SOD (PORCINE) 5000UNITS/ML 1ML VIAL/SYRINGE SC SCH (05:13)
[2022-06-02 06:00] VITALS: BP 167/96
[2022-06-02 06:55] LABS: HEMATOCRIT 40.5 % (42.0-52.0); HEMOGLOBIN 13.9 g/dl (13.5-17.5); MEAN CORPUSCULAR HEMOGLOBIN 30.1 pg (27.0-33.0); MEAN CORPUSCULAR HGB CONC 34.3 g/dl (32.0-36.5); MEAN CORPUSCULAR VOLUME 87.7 fl (80.0-96.0); PLATELET COUNT, AUTOMATED 268 10^3/uL (150-450); RED BLOOD COUNT 4.62 10^6/uL (4.30-6.10); WHITE BLOOD COUNT 10.5 10^3/uL (4.0-10.0)
[2022-06-02 07:39] LABS: BLOOD UREA NITROGEN 16 MG/DL (7-18); CALCIUM LEVEL 8.6 MG/DL (8.8-10.2); CARBON DIOXIDE LEVEL 24 MEQ/L (21-32); CHLORIDE LEVEL 107 MEQ/L (98-107); CREATININE FOR GFR 0.94 MG/DL (0.70-1.30); GLOMERULAR FILTRATION RATE > 60.0 (>49); GLUCOSE, FASTING 89 MG/DL (70-100); POTASSIUM SERUM 4.1 MEQ/L (3.5-5.1); SODIUM LEVEL 139 MEQ/L (136-145)
[2022-06-02 08:44] VITALS: BP 165/95
[2022-06-02] MEDS: FAMOTIDINE 20 MG TAB PO SCH (08:44)
[2022-06-02] MEDS: PANTOPRAZOLE 20 MG TAB PO SCH (08:44)
[2022-06-02] MEDS ORDERED: amLODIPine 5 MG TAB PO SCH (09:00)
[2022-06-02] MEDS ORDERED: METR375C3 PO (11:03)
[2022-06-02] MEDS ORDERED: DICY1CAP8 PO (11:03)
[2022-06-02] MEDS ORDERED: CIPR-249 PO (11:03)
== END 2022-06-02 12:45 | disposition home or self-care (01) | DRG 872 ==
LOC: EDBD 16:47 → M ED 16:47 → M ED INP 22:27 → ENRESERV 05-31 04:44 → M PCU 05-31 05:38 → M MS5PR 05-31 10:32
PROVIDERS: ADMIT Internal Medicine; ATTEND Internal Medicine
DX: A41.9 Sepsis, unspecified organism (principal); N17.9 Acute kidney failure, unspecified; K55.9 Vascular disorder of intestine, unspecified; E87.2 Acidosis; K57.92 Diverticulitis of intestine, part unspecified, without perforation or abscess without bleeding; R65.20 Severe sepsis without septic shock; I10 Essential (primary) hypertension; K21.9 Gastro-esophageal reflux disease without esophagitis; R55 Syncope and collapse; Z79.899 Other long term (current) drug therapy; Z90.49 Acquired absence of other specified parts of digestive tract

== ENCOUNTER 2022-11-19 12:03 | Emergency (ER) | payer MEDICARE ==
[~2022-11-19] VITALS: Ht 180.3 cm; Wt 101.1 kg
[~2022-11-19 12:03] MED LIST changes: +CIPR-249 PO; +DICY1CAP8 PO; +FAMO1TAB11 PO; +HYDR12.55 PO; +LISI30TA4 PO; +METR375C3 PO
[2022-11-19 13:19] LABS: BASO % 0.3 % (0.0-1.0); EOS % 0.2 % (0.0-3.0); HEMATOCRIT 42.1 % (42.0-52.0); HEMOGLOBIN 14.6 g/dl (13.5-17.5); LYMPH # 0.5 10^3/uL (1.5-5.0); LYMPH % 3.6 % (24.0-44.0); MEAN CORPUSCULAR HEMOGLOBIN 30.6 pg (27.0-33.0); MEAN CORPUSCULAR HGB CONC 34.7 g/dl (32.0-36.5); MEAN CORPUSCULAR VOLUME 88.3 fl (80.0-96.0); MONO # 0.6 10^3/uL (0.0-0.8); MONO % 4.5 % (2.0-8.0); NEUTROPHILS # 11.7 10^3/uL (1.5-8.5); NEUTROPHILS % 88.5 % (36.0-66.0); PLATELET COUNT, AUTOMATED 268 10^3/uL (150-450); RED BLOOD COUNT 4.77 10^6/uL (4.30-6.10); WHITE BLOOD COUNT 13.2 10^3/uL (4.0-10.0)
[2022-11-19] MEDS ORDERED: LevoFLOXacin IV 750 MG in IV 1 EA IV ONE (13:20)
[2022-11-19 13:47] LABS: ALBUMIN 3.5 G/DL (3.2-5.2); ALKALINE PHOSPHATASE 94 U/L (46-116); ALT/SGPT 12 U/L (7.0-40); AST/SGOT 15 U/L (<34); BILIRUBIN,DIRECT 0.4 MG/DL (<0.4); BLOOD UREA NITROGEN 20 MG/DL (9-23); CALCIUM LEVEL 8.8 MG/DL (8.3-10.6); CARBON DIOXIDE LEVEL 21 MMOL/L (20-31); CHLORIDE LEVEL 110 MMOL/L (98-107); CREATININE FOR GFR 1.15 MG/DL (0.70-1.30); GLOMERULAR FILTRATION RATE > 60.0 (>49); GLUCOSE, FASTING 101 MG/DL (74-106); POTASSIUM SERUM 3.8 MMOL/L (3.5-5.1); SODIUM LEVEL 140 MMOL/L (136-145); TOTAL PROTEIN 7.2 G/DL (5.7-8.2)
[2022-11-19] MEDS ORDERED: CIPR500T39 PO (14:14)
[2022-11-19 14:18] VITALS: BP 133/87
== END 2022-11-19 14:53 | disposition home or self-care (01) ==
LOC: M ED 12:03
DX: N39.0 Urinary tract infection, site not specified (principal); I10 Essential (primary) hypertension; Z79.2 Long term (current) use of antibiotics; Z79.811 Long term (current) use of aromatase inhibitors; Z79.899 Other long term (current) drug therapy
CPT/HCPCS: 80048; 80076; 81000; 81015; 83605; 85025; 87040; 87077; 87086; 87186; 93041; 94760; 96365; 96366; 99284; J1956

== ENCOUNTER 2023-02-10 14:17 | Emergency (ER) | payer MEDICARE ==
[~2023-02-10] VITALS: Ht 180.3 cm; Wt 100.9 kg
[~2023-02-10 14:17] MED LIST changes: +CIPR500T39 PO
[2023-02-10] MEDS ORDERED: AMLO2.5T3 (14:41)
[2023-02-10 16:31] LABS: BASO % 0.4 % (0.0-1.0); EOS % 0.3 % (0.0-3.0); HEMATOCRIT 41.2 % (42.0-52.0); HEMOGLOBIN 14.4 g/dl (13.5-17.5); LYMPH # 0.5 10^3/uL (1.5-5.0); LYMPH % 5.4 % (24.0-44.0); MEAN CORPUSCULAR HEMOGLOBIN 30.3 pg (27.0-33.0); MEAN CORPUSCULAR VOLUME 86.6 fl (80.0-96.0); MONO # 0.5 10^3/uL (0.0-0.8); MONO % 5.4 % (2.0-8.0); NEUTROPHILS # 8.2 10^3/uL (1.5-8.5); NEUTROPHILS % 87.5 % (36.0-66.0); PLATELET COUNT, AUTOMATED 241 10^3/uL (150-450); RED BLOOD COUNT 4.76 10^6/uL (4.30-6.10); WHITE BLOOD COUNT 9.4 10^3/uL (4.0-10.0)
[2023-02-10 17:01] LABS: ALBUMIN 3.2 G/DL (3.2-5.2); ALKALINE PHOSPHATASE 101 U/L (46-116); ALT/SGPT 14 U/L (7.0-40); AST/SGOT 13 U/L (<34); BILIRUBIN,DIRECT 0.2 MG/DL (<0.4); BILIRUBIN,TOTAL 0.6 MG/DL (0.3-1.2); BLOOD UREA NITROGEN 16 MG/DL (9-23); CALCIUM LEVEL 8.5 MG/DL (8.3-10.6); CARBON DIOXIDE LEVEL 22 MMOL/L (20-31); CHLORIDE LEVEL 107 MMOL/L (98-107); GLOMERULAR FILTRATION RATE > 60.0 (>42); GLUCOSE, FASTING 119 MG/DL (74-106); POTASSIUM SERUM 3.7 MMOL/L (3.5-5.1); RSV AMPLIFICATION NEGATIVE (NEGATIVE); SODIUM LEVEL 136 MMOL/L (136-145); TOTAL PROTEIN 6.9 G/DL (5.7-8.2)
[2023-02-10] MEDS ORDERED: CIPR500T39 PO (17:56)
[2023-02-10 18:51] VITALS: BP 120/68
== END 2023-02-10 18:56 | disposition home or self-care (01) ==
LOC: M ED 14:17 → SMC HOSP 14:17 → M ED 18:56
DX: N39.0 Urinary tract infection, site not specified (principal); U07.1 COVID-19; I10 Essential (primary) hypertension; K57.90 Diverticulosis of intestine, part unspecified, without perforation or abscess without bleeding; Z79.899 Other long term (current) drug therapy

== ENCOUNTER → 2024-08-09 | Outpatient (REF) | payer MEDICARE, MEDICAID ==
[~2024-08-09] MED LIST changes: +AMLO2.5T3
== END ==
LOC: M SFHCDERM 17:49
PROVIDERS: ATTEND Physician Assistant
DX: D22.39 Melanocytic nevi of other parts of face (principal)